=== PATIENT | male | born 1965 | race Caucasian/White ===

== ENCOUNTER → 2016-07-07 | Outpatient (CLI) | payer BC ==
[~2016-07-07] MED LIST: ALLO300T2 PO; AMLO10TA4 PO; COLC0.6T66 PO; COR12 PO; FERR-63 PO; INDO-53 PO; INSNPH SUBCUT; LANTUSUD SQ; LEVO125T PO; METF-517 PO; MULT-1146 PO; NAPR-217 PO; OLME1TAB18 PO; OMEP20TA15 PO; POTA20TA82 PO; PREG150C PO; TAMS-11 PO; TRAM50TA3 PO; XANAFLEX
[2016-07-09 09:46] LABS: FOLICLE STIMULATING HORMONE 13.5 mIU/mL (1.5-12.4); LUTEINIZING HORMONE 8.5 mIU/mL (1.7-8.6); PROLACTIN 6.4 ng/mL (4.0-15.2)
== END | disposition home or self-care (01) ==
LOC: LAB 12:38
PROVIDERS: ATTEND Internal Medicine Endocrinology, Diabetes & Metabolism
DX: E29.1 Testicular hypofunction (principal)
CPT/HCPCS: 83001; 83002; 84146; 84402; 84403

== ENCOUNTER 2017-01-06 08:09 | Inpatient (IN) | payer BC ==
[~2017-01-06] VITALS: Ht 182.9 cm; Wt 129.7 kg
[~2017-01-06 08:09] MED LIST changes: -NAPR-217 PO; +NAPR500T PO
[2017-01-06] MEDS ORDERED: MECLIZINE 25MG TABLET PO ONE (09:15)
[2017-01-06 09:27] LABS: BASOPHILS % 0.4 % (0.0-2.0); EOSINOPHILS % 0.6 % (0.0-5.0); HEMATOCRIT. 34.8 % (42.0-52.0); HEMOGLOBIN. 10.9 g/dL (14.0-18.0); LYMPHOCYTES % 18.6 % (20.0-50.0); MEAN CORPUSCULAR HEMOGLOBIN 23.4 pg (28.0-32.0); MEAN CORPUSCULAR VOLUME 74.7 fL (80.0-94.0); MEAN PLATELET VOLUME 8.6 fl (7.4-10.4); MONOCYTES % 6.1 % (2.0-8.0); NEUTROPHILS % 74.3 % (40.0-76.0); PLATELET 199 x1000/uL (130-400); RED BLOOD CELL COUNT 4.65 mill/uL (4.7-6.1); RED CELL DISTRIBUTION WIDTH 19.2 % (11.6-14.6)
[2017-01-06] MEDS ORDERED: HYDROCODONE/ACETAMINOPHEN 5/325MG TABLET PO ONE (09:30)
[2017-01-06 09:34] LABS: INR 1.1
[2017-01-06 09:42] LABS: CARBON DIOXIDE 26 mEq/L (21-32); CHLORIDE 98 mEq/L (98-107); TROPONIN I < 0.02 ng/mL (0.00-0.04)
[2017-01-06 10:01] LABS: GLUCOSE URINE 3+ (NEGATIVE); KETONES URINE NEGATIVE (NEGATIVE); LEUKOCYTE ESTERASE URINE NEGATIVE (NEGATIVE); NITRITE URINE NEGATIVE (NEGATIVE); OCCULT BLOOD URINE NEGATIVE (NEGATIVE); PROTEIN URINE NEGATIVE (NEGATIVE); SPECIFIC GRAVITY URINE 1.036 (1.005-1.030); UROBILINOGEN URINE 0.2 E.U./dL (0.2-1.0)
[2017-01-06 10:02] LABS: CLARITY URINE CLEAR (CLEAR); COLOR URINE YELLOW (YELLOW)
[2017-01-06] MEDS ORDERED: ASPIRIN 81MG TABLET PO ONE (12:30)
[2017-01-06] MEDS ORDERED: KETOROLAC 15MG/ML VIAL IV ONE (12:30)
[2017-01-06] MEDS ORDERED: MORPHINE SULFATE 2 MG/ML CPJ (NOT FOR IM USE) IV ONE (12:45)
[2017-01-06 14:00] VITALS: BP_SYST 115; BP_DIAS 70; BP_DIAS 74
[2017-01-06] MEDS ORDERED: CLONIDINE 0.2MG TABLET PO PRN ×2 (14:15)
[2017-01-06] MEDS: AMLODIPINE 5MG TABLET PO SCH ×2 (14:30→20:50)
[2017-01-06] MEDS ORDERED: CLONIDINE 0.1MG TABLET PO PRN (14:37)
[2017-01-06] MEDS ORDERED: DEXTROSE 50% WATER 50ML SYRINGE IV PRN (15:15)
[2017-01-06] MEDS ORDERED: TRAMADOL 50MG TABLET PO PRN (15:15)
[2017-01-06 16:00] VITALS: BP 109/71
[2017-01-06] MEDS ORDERED: TIZANIDINE HCL 4MG TABLET PO PRN (16:00)
[2017-01-06] MEDS ORDERED: MECLIZINE 25MG TABLET PO PRN (16:15)
[2017-01-06] MEDS: CARVEDILOL 12.5MG TABLET PO SCH (17:00)
[2017-01-06] MEDS: BLOOD SUGAR DIAGNOSTIC STRIP TEST SCH ×2 (17:07→20:58)
[2017-01-06] MEDS ORDERED: METFORMIN HCL 500MG TABLET PO SCH (17:20)
[2017-01-06] MEDS: PREGABALIN 75MG CAPSULE PO SCH (17:27)
[2017-01-06] MEDS: FERROUS SULFATE 325MG TABLET PO SCH (17:27)
[2017-01-06] MEDS: INSULIN LISPRO 100 UNITS/ML SUBCUT SCH ×2 (17:28→20:58)
[2017-01-06] MEDS: IPRATROPIUM/ALBUTEROL 0.5-3(2.5)MG/3ML NEB HHN PRN (17:32)
[2017-01-06 18:00] VITALS: BP 134/73
[2017-01-06 20:00] VITALS: BP 124/48
[2017-01-06] MEDS ORDERED: TAMSULOSIN HCL 0.4MG SR CAPSULE PO SCH (21:00)
[2017-01-06 22:00] VITALS: BP 108/60
[2017-01-06] MEDS: INSULIN DETEMIR UD 100 UNITS/ML SYR SUBCUT SCH (22:30)
[2017-01-07] VITALS (7 sets, daily range): BP systolic 111–130; BP diastolic 60–79
[2017-01-07] MEDS: BLOOD SUGAR DIAGNOSTIC STRIP TEST SCH ×2 (06:50→12:32)
[2017-01-07] MEDS ORDERED: OMEPRAZOLE 20MG CAPSULE EXTENDED RELEASE PO SCH (06:50)
[2017-01-07] MEDS ORDERED: LEVOTHYROXINE SODIUM 125MCG TABLET PO SCH (06:50)
[2017-01-07] MEDS: INSULIN LISPRO 100 UNITS/ML SUBCUT SCH ×2 (07:20→12:20)
[2017-01-07] MEDS ORDERED: [UNRECOGNIZED DRUG - OTHER] PO SCH (09:00)
[2017-01-07] MEDS ORDERED: OLMESARTAN PO SCH (09:00)
[2017-01-07] MEDS: CARVEDILOL 12.5MG TABLET PO SCH (09:00)
[2017-01-07] MEDS ORDERED: ALLOPURINOL 300 MG TABLET PO SCH (09:00)
[2017-01-07] MEDS ORDERED: POTASSIUM CHLORIDE 20MEQ TABLET SR PO SCH (09:00)
[2017-01-07] MEDS ORDERED: AMLODIPINE 10MG TABLET PO SCH (09:00)
[2017-01-07] MEDS ORDERED: MULTIVITAMINS,THER W-MINERALS TABLET PO SCH (09:00)
[2017-01-07] MEDS ORDERED: HYDROCHLOROTHIAZIDE PO SCH (09:00)
[2017-01-07] MEDS: IPRATROPIUM/ALBUTEROL 0.5-3(2.5)MG/3ML NEB HHN PRN (09:01)
[2017-01-07] MEDS: AMLODIPINE 5MG TABLET PO SCH (09:41)
[2017-01-07] MEDS: FERROUS SULFATE 325MG TABLET PO SCH (09:41)
[2017-01-07] MEDS: PREGABALIN 75MG CAPSULE PO SCH (09:41)
[2017-01-07 09:54] LABS: BASOPHILS % 0.5 % (0.0-2.0); EOSINOPHILS % 1.2 % (0.0-5.0); HEMATOCRIT. 30.7 % (42.0-52.0); HEMOGLOBIN. 9.6 g/dL (14.0-18.0); LYMPHOCYTES % 29.6 % (20.0-50.0); MEAN CORPUSCULAR HEMOGLOBIN 23.2 pg (28.0-32.0); MEAN CORPUSCULAR VOLUME 74.4 fL (80.0-94.0); MONOCYTES % 9.2 % (2.0-8.0); NEUTROPHILS % 59.5 % (40.0-76.0); PLATELET 187 x1000/uL (130-400); RED BLOOD CELL COUNT 4.12 mill/uL (4.7-6.1); RED CELL DISTRIBUTION WIDTH 18.8 % (11.6-14.6)
[2017-01-07 10:33] LABS: CARBON DIOXIDE 28 mEq/L (21-32); CHLORIDE 99 mEq/L (98-107); CREATINE KINASE 89 IU/L (39-308); CREATINE KINASE MB FRACTION 1.4 ng/mL (0.5-3.6); HDL CHOLESTEROL 42 mg/dL (40-59); LDL CHOLESTEROL 65 mg/dL (5-100); TROPONIN I < 0.02 ng/mL (0.00-0.04)
[2017-01-07] MEDS: INSULIN DETEMIR UD 100 UNITS/ML SYR SUBCUT SCH (11:03)
[2017-01-07] MEDS ORDERED: LORATADINE 10MG TABLET PO SCH (12:45)
[2017-01-08] MEDS ORDERED: LEVOTHYROXINE SODIUM 150MCG TABLET PO SCH (06:50)
== END 2017-01-07 17:30 | disposition home or self-care (01) | DRG 73 ==
LOC: ER 08:51 → CANRESERV 10:08 → ENRESERV 10:08 → 3WST 12:41 → EDBEDREQ 12:45
PROVIDERS: ADMIT Family Medicine Adult Medicine; ATTEND Family Medicine Adult Medicine
DX: G90.8 Other disorders of autonomic nervous system (principal); G92 Toxic encephalopathy; E11.42 Type 2 diabetes mellitus with diabetic polyneuropathy; I11.9 Hypertensive heart disease without heart failure; G95.9 Disease of spinal cord, unspecified; D50.9 Iron deficiency anemia, unspecified; E03.9 Hypothyroidism, unspecified; E66.9 Obesity, unspecified; E78.00 Pure hypercholesterolemia, unspecified; E78.5 Hyperlipidemia, unspecified; G25.81 Restless legs syndrome; G89.29 Other chronic pain; I25.10 Atherosclerotic heart disease of native coronary artery without angina pectoris; I25.2 Old myocardial infarction; K21.9 Gastro-esophageal reflux disease without esophagitis; M10.9 Gout, unspecified; N40.0 Benign prostatic hyperplasia without lower urinary tract symptoms; Z79.4 Long term (current) use of insulin; Z82.49 Family history of ischemic heart disease and other diseases of the circulatory system; Z68.38 Body mass index [BMI] 38.0-38.9, adult
CPT/HCPCS: 36415; 70450; 70544; 70553; 80053; 80061; 81001; 82550; 82553; 82962; 83036; 83735; 83880; 84153; 84443; 84484; 85025; 85379; 85610; 85651; 86038; 93005; 93306; 93880; 94640; 94664; 96374; 96375; 97116; 97162; 97166; 99285; J1815; J1885; J2270; J7620; J8597

== ENCOUNTER 2017-05-03 12:34 | Inpatient (IN) | payer BC ==
[~2017-05-03] VITALS: Ht 182.9 cm; Wt 128.1 kg
[~2017-05-03 12:34] MED LIST changes: +NAPR-1176 PO; -NAPR500T PO
[2017-05-03] MEDS ORDERED: ALBUTEROL (0.083%) 2.5MG/3ML NEB HHN STA (13:19)
[2017-05-03] MEDS ORDERED: SODIUM CHLORIDE 0.9% 500 ML IV ONE (13:19)
[2017-05-03] MEDS ORDERED: IPRATROPIUM BROMIDE (0.02%) 0.5MG/2.5ML NEB HHN STA (13:19)
[2017-05-03] MEDS ORDERED: METHYLPREDNISOLONE SOD SUCC 125 MG/2 ML VIAL IV STA (13:19)
[2017-05-03] MEDS ORDERED: MAGNESIUM 2 G PREMIX 50 ML IV ONE (13:30)
[2017-05-03 14:49] LABS: BASOPHILS % 0.5 % (0.0-2.0); EOSINOPHILS % 1.6 % (0.0-5.0); HEMATOCRIT. 28.9 % (42.0-52.0); LYMPHOCYTES % 15.2 % (20.0-50.0); MEAN CORPUSCULAR HEMOGLOBIN 22.2 pg (28.0-32.0); MEAN CORPUSCULAR VOLUME 71.3 fL (80.0-94.0); MEAN PLATELET VOLUME 8.8 fl (7.4-10.4); MONOCYTES % 14.8 % (2.0-8.0); NEUTROPHILS % 67.9 % (40.0-76.0); PLATELET 183 x1000/uL (130-400); RED BLOOD CELL COUNT 4.05 mill/uL (4.7-6.1); RED CELL DISTRIBUTION WIDTH 19.7 % (11.6-14.6)
[2017-05-03 14:54] LABS: CHLORIDE 103 mEq/L (98-107)
[2017-05-03 14:55] LABS: INR 1.1
[2017-05-03 15:01] LABS: TROPONIN I < 0.02 ng/mL (0.00-0.04)
[2017-05-03 17:28] VITALS: BP 132/83
[2017-05-03] MEDS ORDERED: DOCUSATE SODIUM 100MG CAPSULE PO PRN (17:45)
[2017-05-03] MEDS ORDERED: ACETAMINOPHEN 325MG TABLET PO PRN (17:45)
[2017-05-03] MEDS ORDERED: DEXTROSE 50% WATER 50ML SYRINGE IV PRN (17:45)
[2017-05-03] MEDS ORDERED: CLONIDINE 0.1MG TABLET PO PRN (17:45)
[2017-05-03] MEDS ORDERED: ONDANSETRON HCL 4MG/2ML VIAL IV PRN (17:45)
[2017-05-03] MEDS ORDERED: MIR25 PO (17:52)
[2017-05-03] MEDS ORDERED: ENOXAPARIN 40MG/0.4ML SYR SUBCUT SCH (18:00)
[2017-05-03] MEDS ORDERED: INDOMETHACIN 50MG CAPSULE PO PRN (18:15)
[2017-05-03] MEDS ORDERED: TRAMADOL 50MG TABLET PO PRN (18:15)
[2017-05-03] MEDS ORDERED: COLCHICINE 0.6MG TABLET PO PRN (18:15)
[2017-05-03] MEDS ORDERED: NAPROXEN 500MG TABLET PO PRN (18:15)
[2017-05-03] MEDS: ENOXAPARIN 30MG/0.3ML SYR SUBCUT SCH (19:10)
[2017-05-03 20:00] VITALS: BP 144/86
[2017-05-03] MEDS: IPRATROPIUM/ALBUTEROL 0.5-3(2.5)MG/3ML NEB INH SCH (20:24)
[2017-05-03] MEDS ORDERED: ZOLPIDEM TARTRATE 5MG TABLET PO PRN (21:00)
[2017-05-03] MEDS ORDERED: TAMSULOSIN HCL 0.4MG SR CAPSULE PO SCH (21:00)
[2017-05-03] MEDS ORDERED: INSULIN LISPRO 100 UNITS/ML SUBCUT SCH (21:00)
[2017-05-03] MEDS: BLOOD SUGAR DIAGNOSTIC STRIP TEST SCH (21:17)
[2017-05-03] MEDS: PRAMIPEXOLE DI-HCL 0.25MG TABLET PO SCH (21:18)
[2017-05-03] MEDS: TAMSULOSIN HCL 0.4MG SR CAPSULE PO SCH (21:19)
[2017-05-03] MEDS: TIZANIDINE HCL 4MG TABLET PO PRN (21:19)
[2017-05-03] MEDS: CARVEDILOL 12.5MG TABLET PO SCH (21:19)
[2017-05-03] MEDS: PREGABALIN 75MG CAPSULE PO SCH (21:19)
[2017-05-03] MEDS: OSELTAMIVIR 75MG CAPSULE PO SCH (21:19)
[2017-05-03 22:00] VITALS: BP 129/79
[2017-05-03] MEDS ORDERED: INSULIN GLARGINE UD 100 UNITS/ML SYR SUBCUT SCH (22:00)
[2017-05-03] MEDS: IPRATROPIUM/ALBUTEROL 0.5-3(2.5)MG/3ML NEB INH PRN (22:23)
[2017-05-03] MEDS: METHYLPREDNISOLONE SOD SUCC 40 MG/ML VIAL IV SCH (23:18)
[2017-05-04] VITALS (12 sets, daily range): BP systolic 107–141; BP diastolic 56–86
[2017-05-04] MEDS: IPRATROPIUM/ALBUTEROL 0.5-3(2.5)MG/3ML NEB INH SCH ×5 (02:12→21:09)
[2017-05-04] MEDS: ENOXAPARIN 30MG/0.3ML SYR SUBCUT SCH (06:04)
[2017-05-04] MEDS: LEVOTHYROXINE SODIUM 125MCG TABLET PO SCH (06:04)
[2017-05-04] MEDS: OMEPRAZOLE 20MG CAPSULE EXTENDED RELEASE PO SCH (06:05)
[2017-05-04] MEDS: BLOOD SUGAR DIAGNOSTIC STRIP TEST SCH ×4 (06:05→21:17)
[2017-05-04] MEDS ORDERED: OMEPRAZOLE 20MG CAPSULE EXTENDED RELEASE PO SCH (06:50)
[2017-05-04 07:07] LABS: HEMATOCRIT. 29.2 % (42.0-52.0); HEMOGLOBIN. 8.8 g/dL (14.0-18.0); LYMPHOCYTES % 10.1 % (20.0-50.0); MEAN CORPUSCULAR HEMOGLOBIN 21.8 pg (28.0-32.0); MEAN CORPUSCULAR VOLUME 72.3 fL (80.0-94.0); NEUTROPHILS % 86.9 % (40.0-76.0); PLATELET 184 x1000/uL (130-400); RED BLOOD CELL COUNT 4.04 mill/uL (4.7-6.1); RED CELL DISTRIBUTION WIDTH 19.7 % (11.6-14.6)
[2017-05-04 07:46] LABS: CHLORIDE 98 mEq/L (98-107); PHOSPHORUS 2.3 mg/dL (2.5-4.9); TOTAL IRON BINDING CAPACITY 391 ug/dL (250-450); TROPONIN I < 0.02 ng/mL (0.00-0.04)
[2017-05-04] MEDS ORDERED: DEXTROSE 50% WATER 50ML SYRINGE IV PRN (08:00)
[2017-05-04] MEDS ORDERED: ACETAMINOPHEN WITH CODEINE 120-12MG/5ML UDC PO PRN (08:00)
[2017-05-04] MEDS: INSULIN LISPRO 100 UNITS/ML SUBCUT SCH ×4 (08:10→21:19)
[2017-05-04] MEDS: GUAIFENESIN 200MG/10ML SUGAR FREE UDC PO PRN ×2 (08:11→19:00)
[2017-05-04] MEDS: PRAMIPEXOLE DI-HCL 0.25MG TABLET PO SCH ×3 (08:11→21:15)
[2017-05-04] MEDS: FERROUS SULFATE 325MG TABLET PO SCH ×2 (08:11→16:46)
[2017-05-04] MEDS: METHYLPREDNISOLONE SOD SUCC 40 MG/ML VIAL IV SCH ×2 (08:11→21:15)
[2017-05-04] MEDS: MULTIVITAMINS,THER W-MINERALS TABLET PO SCH (08:12)
[2017-05-04] MEDS: PREGABALIN 75MG CAPSULE PO SCH ×2 (08:12→21:15)
[2017-05-04] MEDS: POTASSIUM CHLORIDE 20MEQ TABLET SR PO SCH (08:12)
[2017-05-04] MEDS: ALLOPURINOL 300 MG TABLET PO SCH (08:12)
[2017-05-04] MEDS: COLCHICINE 0.6MG TABLET PO PRN (08:13)
[2017-05-04] MEDS: OSELTAMIVIR 75MG CAPSULE PO SCH ×2 (08:13→21:15)
[2017-05-04] MEDS: AMLODIPINE 10MG TABLET PO SCH (08:13)
[2017-05-04] MEDS: METFORMIN HCL 500MG TABLET PO SCH ×2 (08:14→16:46)
[2017-05-04] MEDS: CARVEDILOL 12.5MG TABLET PO SCH (08:14)
[2017-05-04] MEDS: IRON SUCROSE COMPLEX 100 MG/5 ML ML IV SCH (09:50)
[2017-05-04] MEDS: METOPROLOL TARTRATE 25MG TABLET PO SCH ×2 (09:50→21:17)
[2017-05-04] MEDS: IPRATROPIUM/ALBUTEROL 0.5-3(2.5)MG/3ML NEB INH PRN (10:05)
[2017-05-04] MEDS: INSULIN GLARGINE UD 100 UNITS/ML SYR SUBCUT SCH ×2 (11:02→21:20)
[2017-05-04 14:00] LABS: FOLIC ACID (FOLATE) SERUM 19.4 ng/mL (>5.38)
[2017-05-04] MEDS: TIZANIDINE HCL 4MG TABLET PO PRN (21:15)
[2017-05-04] MEDS: TAMSULOSIN HCL 0.4MG SR CAPSULE PO SCH (21:17)
[2017-05-05] VITALS (9 sets, daily range): BP systolic 120–146; BP diastolic 64–85
[2017-05-05] MEDS: IPRATROPIUM/ALBUTEROL 0.5-3(2.5)MG/3ML NEB INH SCH ×2 (01:27→10:32)
[2017-05-05] MEDS: LEVOTHYROXINE SODIUM 125MCG TABLET PO SCH (06:48)
[2017-05-05] MEDS: OMEPRAZOLE 20MG CAPSULE EXTENDED RELEASE PO SCH (06:48)
[2017-05-05] MEDS: BLOOD SUGAR DIAGNOSTIC STRIP TEST SCH ×2 (06:48→11:07)
[2017-05-05 07:13] LABS: HEMATOCRIT. 28.5 % (42.0-52.0); HEMOGLOBIN. 8.6 g/dL (14.0-18.0); MEAN CORPUSCULAR HEMOGLOBIN 21.6 pg (28.0-32.0); MEAN CORPUSCULAR VOLUME 71.6 fL (80.0-94.0); PLATELET 187 x1000/uL (130-400); RED BLOOD CELL COUNT 3.97 mill/uL (4.7-6.1); RED CELL DISTRIBUTION WIDTH 19.6 % (11.6-14.6)
[2017-05-05 07:17] LABS: CHLORIDE 101 mEq/L (98-107); HDL CHOLESTEROL 51 mg/dL (40-59); LDL CHOLESTEROL 83 mg/dL (5-100)
[2017-05-05 07:18] LABS: TROPONIN I < 0.02 ng/mL (0.00-0.04)
[2017-05-05] MEDS: METFORMIN HCL 500MG TABLET PO SCH (07:56)
[2017-05-05] MEDS: INSULIN LISPRO 100 UNITS/ML SUBCUT SCH ×2 (07:57→11:09)
[2017-05-05] MEDS: COLCHICINE 0.6MG TABLET PO PRN (08:06)
[2017-05-05] MEDS: GUAIFENESIN 200MG/10ML SUGAR FREE UDC PO PRN (08:06)
[2017-05-05] MEDS: METHYLPREDNISOLONE SOD SUCC 40 MG/ML VIAL IV SCH (08:07)
[2017-05-05] MEDS: PRAMIPEXOLE DI-HCL 0.25MG TABLET PO SCH (08:08)
[2017-05-05] MEDS: IRON SUCROSE COMPLEX 100 MG/5 ML ML IV SCH (08:08)
[2017-05-05] MEDS: POTASSIUM CHLORIDE 20MEQ TABLET SR PO SCH (08:08)
[2017-05-05] MEDS: PREGABALIN 75MG CAPSULE PO SCH (08:08)
[2017-05-05] MEDS: MULTIVITAMINS,THER W-MINERALS TABLET PO SCH (08:08)
[2017-05-05] MEDS: METOPROLOL TARTRATE 25MG TABLET PO SCH (08:09)
[2017-05-05] MEDS: FERROUS SULFATE 325MG TABLET PO SCH (08:09)
[2017-05-05] MEDS: ALLOPURINOL 300 MG TABLET PO SCH (08:10)
[2017-05-05] MEDS: OSELTAMIVIR 75MG CAPSULE PO SCH (08:10)
[2017-05-05] MEDS: AMLODIPINE 10MG TABLET PO SCH (08:10)
[2017-05-05] MEDS: INSULIN GLARGINE UD 100 UNITS/ML SYR SUBCUT SCH (11:08)
[2017-05-05 12:12] LABS: NUCLEATED RED BLOOD CELLS 1 /100 WBC
[2017-05-05 12:13] LABS: PLATELET ESTIMATE NORMAL
[2017-05-06] MEDS ORDERED: FAMOTIDINE 20MG TABLET PO SCH (09:00)
== END 2017-05-05 14:43 | disposition home or self-care (01) | DRG 194 ==
LOC: ER 12:34 → EDBEDREQSVC 14:27 → ENRESERV 14:33 → 3WST 14:33 → EDBEDREQ 15:49
PROVIDERS: ADMIT Family Medicine Adult Medicine; ATTEND Family Medicine Adult Medicine
DX: J10.1 Influenza due to other identified influenza virus with other respiratory manifestations (principal); J45.901 Unspecified asthma with (acute) exacerbation; K31.84 Gastroparesis; E44.1 Mild protein-calorie malnutrition; E11.43 Type 2 diabetes mellitus with diabetic autonomic (poly)neuropathy; G95.9 Disease of spinal cord, unspecified; I11.9 Hypertensive heart disease without heart failure; E66.01 Morbid (severe) obesity due to excess calories; I25.10 Atherosclerotic heart disease of native coronary artery without angina pectoris; I49.3 Ventricular premature depolarization; K21.9 Gastro-esophageal reflux disease without esophagitis; G47.33 Obstructive sleep apnea (adult) (pediatric); R74.0 Nonspecific elevation of levels of transaminase and lactic acid dehydrogenase [LDH]; M10.9 Gout, unspecified; D50.9 Iron deficiency anemia, unspecified; E03.9 Hypothyroidism, unspecified; E78.00 Pure hypercholesterolemia, unspecified; E78.5 Hyperlipidemia, unspecified; N40.0 Benign prostatic hyperplasia without lower urinary tract symptoms; Z82.49 Family history of ischemic heart disease and other diseases of the circulatory system; Z88.6 Allergy status to analgesic agent; I25.2 Old myocardial infarction
CPT/HCPCS: 36415; 71045; 80048; 80053; 80061; 82270; 82607; 82746; 82962; 83036; 83540; 83550; 83605; 83690; 83735; 83880; 84100; 84443; 84484; 85025; 85044; 85610; 86850; 86900; 87040; 87804; 93005; 93306; 96361; 96374; 96375; 99285; J1650; J1815; J2920; J2930; J3475; J7040; J7611; J7620

== ENCOUNTER → 2017-07-01 | Outpatient (CLI) | payer BC ==
[~2017-07-01] MED LIST changes: -COR12 PO; +GADOBENATE DIMEGLUMINE 529 MG/ML 10ML IV ONE; +MIR25 PO; -OLME1TAB18 PO
[2017-07-01 10:16] LABS: BASOPHILS % 0.5 % (0.0-2.0); EOSINOPHILS % 1.1 % (0.0-5.0); HEMATOCRIT. 41.6 % (42.0-52.0); HEMOGLOBIN. 13.5 g/dL (14.0-18.0); LYMPHOCYTES % 20.9 % (20.0-50.0); MEAN CORPUSCULAR HEMOGLOBIN 26.9 pg (28.0-32.0); MEAN CORPUSCULAR VOLUME 82.7 fL (80.0-94.0); MEAN PLATELET VOLUME 8.8 fl (7.4-10.4); MONOCYTES % 8.4 % (2.0-8.0); NEUTROPHILS % 69.1 % (40.0-76.0); PLATELET 157 x1000/uL (130-400); RED BLOOD CELL COUNT 5.03 mill/uL (4.7-6.1)
[2017-07-01 10:43] LABS: CLARITY URINE CLEAR (CLEAR); COLOR URINE YELLOW (YELLOW); KETONES URINE NEGATIVE (NEGATIVE); LEUKOCYTE ESTERASE URINE NEGATIVE (NEGATIVE); NITRITE URINE NEGATIVE (NEGATIVE); OCCULT BLOOD URINE NEGATIVE (NEGATIVE); PROTEIN URINE 1+ (NEGATIVE); SPECIFIC GRAVITY URINE 1.034 (1.005-1.030); UROBILINOGEN URINE 0.2 E.U./dL (0.2-1.0)
[2017-07-01 11:16] LABS: CHLORIDE 101 mEq/L (98-107)
[2017-07-01 11:32] LABS: LDL CHOLESTEROL 79 mg/dL (5-100)
[2017-07-01 11:33] LABS: HDL CHOLESTEROL 47 mg/dL (40-59)
[2017-07-01 12:41] LABS: PROSTRATE SPECIFIC AG TOTAL 2.43 ng/mL (0.0-4.0)
[2017-07-02 13:43] LABS: PLATELET ESTIMATE NORMAL
== END | disposition home or self-care (01) ==
LOC: MRI 08:50
PROVIDERS: ATTEND Psychiatry & Neurology Neurology
DX: R51 Headache (principal); E78.00 Pure hypercholesterolemia, unspecified; I10 Essential (primary) hypertension; R79.89 Other specified abnormal findings of blood chemistry
CPT/HCPCS: 36415; 70544; 70553; 80053; 80061; 81003; 82306; 82728; 83036; 84153; 84443; 85025; A9577

== ENCOUNTER 2017-09-01 16:35 | Emergency (ER) | payer BC ==
[~2017-09-01] VITALS: Ht 182.9 cm; Wt 132.0 kg
[~2017-09-01 16:35] MED LIST changes: -GADOBENATE DIMEGLUMINE 529 MG/ML 10ML IV ONE
[2017-09-01 16:46] VITALS: BP 150/94
[2017-09-01] MEDS ORDERED: ACETAMINOPHEN WITH CODEINE 300/30MG TABLET PO ONE (17:00)
== END 2017-09-01 18:00 | disposition home or self-care (01) ==
LOC: ER 16:35
DX: S40.021A Contusion of right upper arm, initial encounter (principal); K21.9 Gastro-esophageal reflux disease without esophagitis; I10 Essential (primary) hypertension; E11.9 Type 2 diabetes mellitus without complications; Z88.8 Allergy status to other drugs, medicaments and biological substances; X58.XXXA Exposure to other specified factors, initial encounter; Y93.89 Activity, other specified; Y92.128 Other place in nursing home as the place of occurrence of the external cause; Y99.8 Other external cause status
CPT/HCPCS: 73030; 73060; 99284

== ENCOUNTER → 2017-09-15 | Outpatient (CLI) | payer BC ==
[~2017-09-15] MED LIST changes: +REGADENOSON 0.4 MG/5 ML IV ONE
== END | disposition home or self-care (01) ==
LOC: NM 07:54
PROVIDERS: ATTEND Specialist
DX: R07.89 Other chest pain (principal)
CPT/HCPCS: 78452; 93017; A9500; J2785

== ENCOUNTER → 2017-10-19 | Outpatient (CLI) | payer BC ==
[~2017-10-19] MED LIST changes: -REGADENOSON 0.4 MG/5 ML IV ONE
[2017-10-19 14:49] LABS: BASOPHILS % 0.4 % (0.0-2.0); EOSINOPHILS % 1.7 % (0.0-5.0); HEMATOCRIT. 39.3 % (42.0-52.0); HEMOGLOBIN. 13.1 g/dL (14.0-18.0); LYMPHOCYTES % 20.1 % (20.0-50.0); MEAN CORPUSCULAR HEMOGLOBIN 30.8 pg (28.0-32.0); MEAN CORPUSCULAR VOLUME 92.6 fL (80.0-94.0); MEAN PLATELET VOLUME 9.5 fl (7.4-10.4); MONOCYTES % 8.9 % (2.0-8.0); NEUTROPHILS % 68.9 % (40.0-76.0); PLATELET 113 x1000/uL (130-400); RED BLOOD CELL COUNT 4.25 mill/uL (4.7-6.1); RED CELL DISTRIBUTION WIDTH 15.2 % (11.6-14.6)
[2017-10-19 15:45] LABS: CHLORIDE 101 mEq/L (98-107)
[2017-10-19 15:51] LABS: LDL CHOLESTEROL 80 mg/dL (5-100); TOTAL IRON BINDING CAPACITY 391 ug/dL (250-450)
[2017-10-19 15:52] LABS: HDL CHOLESTEROL 48 mg/dL (40-59)
[2017-10-19 15:54] LABS: T4 FREE 1.11 ng/dL (0.76-1.46)
[2017-10-19 16:01] LABS: CORTISOL 6.4 ucg/dL
[2017-10-19 16:02] LABS: FERRITIN 21 ng/mL (22-322); PROSTRATE SPECIFIC AG TOTAL 1.77 ng/mL (0.0-4.0)
[2017-10-19 16:05] LABS: FOLIC ACID (FOLATE) SERUM >20 ng/mL ng/mL (>5.38)
[2017-10-19 16:13] LABS: HEPATITIS B SURFACE ANTIGEN NEGATIVE
[2017-10-19 16:17] LABS: VITAMIN B12 SERUM 357 pg/mL (211-911)
[2017-10-19 16:41] LABS: HEPATITIS B CORE AB IGM NEGATIVE
[2017-10-19 16:42] LABS: HEPATITIS A AB IGM NEGATIVE (NEGATIVE)
[2017-10-21 09:06] LABS: FOLICLE STIMULATING HORMONE 15.7 mIU/mL (1.5-12.4); LUTEINIZING HORMONE 7.9 mIU/mL (1.7-8.6); VITAMIN D 25-OH 31.9 ng/mL (30.0-100.0)
[2017-10-21 13:09] LABS: *CREATININE RANDOM URINE 105.5 mg/dL (Not Estab.); MICROALBUMIN RANDOM URINE 116.9 ug/mL (Not Estab.)
[2017-10-22 17:08] LABS: TESTOSTERONE FREE 5.2 pg/mL (7.2-24.0)
== END | disposition home or self-care (01) ==
LOC: LAB 13:46
PROVIDERS: ATTEND Internal Medicine Endocrinology, Diabetes & Metabolism
DX: E11.9 Type 2 diabetes mellitus without complications (principal); I10 Essential (primary) hypertension; N40.0 Benign prostatic hyperplasia without lower urinary tract symptoms; E05.90 Thyrotoxicosis, unspecified without thyrotoxic crisis or storm; R94.5 Abnormal results of liver function studies; N52.9 Male erectile dysfunction, unspecified
CPT/HCPCS: 36415; 80053; 80061; 82043; 82306; 82533; 82570; 82607; 82728; 82746; 83001; 83002; 83036; 83540; 83550; 84153; 84402; 84403; 84439; 84443; 84681; 85025; 86340; 86705; 86709; 86803; 87340

== ENCOUNTER → 2017-10-28 | Outpatient (CLI) | payer OTHER ==
[~2017-10-28] MED LIST changes: -INDO-53 PO; +INDO50CA14 PO
== END | disposition home or self-care (01) ==
LOC: MRI 07:59
PROVIDERS: ATTEND Orthopaedic Surgery
DX: S43.422A Sprain of left rotator cuff capsule, initial encounter (principal); E03.9 Hypothyroidism, unspecified; E78.5 Hyperlipidemia, unspecified; I10 Essential (primary) hypertension; E11.9 Type 2 diabetes mellitus without complications; M10.9 Gout, unspecified; Z85.46 Personal history of malignant neoplasm of prostate; Z79.899 Other long term (current) drug therapy; X58.XXXA Exposure to other specified factors, initial encounter; Y93.89 Activity, other specified; Y92.89 Other specified places as the place of occurrence of the external cause; Y99.8 Other external cause status
CPT/HCPCS: 73221

== ENCOUNTER → 2017-11-18 | Outpatient (CLI) | payer BC ==
[2017-11-18 10:29] LABS: GAMMA GLUTAMYL TRANSPEPTIDASE 171 IU/L (11-50)
[2017-11-19 09:06] LABS: HBSAG SCREEN Negative (Negative)
[2017-11-19 19:11] LABS: ANTI-NUCLEAR ANTIBODIES DIRECT Negative (Negative)
[2017-11-21 08:09] LABS: ACTIN (SMOOTH MUSCLE) ANTIBODY 45 Units (0-19); MITOCHONDRIAL M2 AB 20.2 Units (0.0-20.0)
== END | disposition home or self-care (01) ==
LOC: LAB 09:11
PROVIDERS: ATTEND Internal Medicine Gastroenterology
DX: K64.9 Unspecified hemorrhoids (principal); R94.5 Abnormal results of liver function studies; I10 Essential (primary) hypertension; E78.5 Hyperlipidemia, unspecified; E03.9 Hypothyroidism, unspecified; E11.9 Type 2 diabetes mellitus without complications; Z85.46 Personal history of malignant neoplasm of prostate
CPT/HCPCS: 36415; 80076; 82390; 82525; 82977; 83516; 83615; 86038; 86709; 87340

== ENCOUNTER → 2017-11-18 | Outpatient (CLI) | payer BC | END | disposition home or self-care (01) | LOC: CARD 09:06 | PROVIDERS: ATTEND Specialist | DX: R07.89 Other chest pain (principal); I10 Essential (primary) hypertension; E11.9 Type 2 diabetes mellitus without complications; E03.9 Hypothyroidism, unspecified; E78.5 Hyperlipidemia, unspecified; K21.9 Gastro-esophageal reflux disease without esophagitis; Z85.46 Personal history of malignant neoplasm of prostate; Z79.899 Other long term (current) drug therapy | CPT/HCPCS: 93306 ==

== ENCOUNTER → 2017-12-08 | Outpatient (CLI) | payer BC | END | disposition home or self-care (01) | LOC: CT 09:02 | PROVIDERS: ATTEND Internal Medicine | DX: J98.11 Atelectasis (principal) | CPT/HCPCS: 71250 ==

== ENCOUNTER → 2017-12-13 | Outpatient (CLI) | payer BC ==
[2017-12-13 12:39] LABS: CHLORIDE 101 mEq/L (98-107)
== END | disposition home or self-care (01) ==
LOC: LAB 11:30
PROVIDERS: ATTEND Family Medicine Adult Medicine
DX: I11.9 Hypertensive heart disease without heart failure (principal); E78.5 Hyperlipidemia, unspecified; E03.9 Hypothyroidism, unspecified; E11.9 Type 2 diabetes mellitus without complications; K21.9 Gastro-esophageal reflux disease without esophagitis; Z79.899 Other long term (current) drug therapy; Z88.8 Allergy status to other drugs, medicaments and biological substances
CPT/HCPCS: 36415; 80053

== ENCOUNTER → 2017-12-21 | Outpatient (CLI) | payer BC ==
[2017-12-21 09:56] LABS: BASOPHILS % 0.5 % (0.0-2.0); EOSINOPHILS % 0.7 % (0.0-5.0); HEMATOCRIT. 42.4 % (42.0-52.0); HEMOGLOBIN. 14.1 g/dL (14.0-18.0); LYMPHOCYTES % 18.6 % (20.0-50.0); MEAN CORPUSCULAR HEMOGLOBIN 31.7 pg (28.0-32.0); MEAN CORPUSCULAR VOLUME 95.2 fL (80.0-94.0); MEAN PLATELET VOLUME 8.9 fl (7.4-10.4); MONOCYTES % 7.1 % (2.0-8.0); NEUTROPHILS % 73.1 % (40.0-76.0); PLATELET 115 x1000/uL (130-400); RED BLOOD CELL COUNT 4.45 mill/uL (4.7-6.1); RED CELL DISTRIBUTION WIDTH 16.4 % (11.6-14.6)
[2017-12-21 10:24] LABS: TOTAL IRON BINDING CAPACITY 335 ug/dL (250-450)
[2017-12-21 11:02] LABS: FERRITIN 84 ng/mL (22-322)
[2017-12-21 11:03] LABS: HEPATITIS B SURFACE AB 149.8 mIU/mL
[2017-12-21 11:15] LABS: VITAMIN B12 SERUM 340 pg/mL (211-911)
[2017-12-21 11:24] LABS: FOLIC ACID (FOLATE) SERUM > 20.00 ng/mL (>5.38)
[2017-12-22 08:19] LABS: CA 19-9 31 U/mL (0-35); HBSAG SCREEN Negative (Negative); HEPATITIS A ANTIBODY TOTAL Negative (Negative)
== END | disposition home or self-care (01) ==
LOC: LAB 09:05
PROVIDERS: ATTEND Internal Medicine Gastroenterology
DX: Z12.11 Encounter for screening for malignant neoplasm of colon (principal); K29.70 Gastritis, unspecified, without bleeding; R94.5 Abnormal results of liver function studies
CPT/HCPCS: 36415; 82105; 82607; 82728; 82746; 83540; 83550; 85025; 85044; 86301; 86706; 86708; 86803; 87340

== ENCOUNTER → 2017-12-23 | Outpatient (CLI) | payer BC | END | disposition home or self-care (01) | LOC: LAB 11:30 | PROVIDERS: ATTEND Internal Medicine Gastroenterology | DX: K76.0 Fatty (change of) liver, not elsewhere classified (principal); I10 Essential (primary) hypertension; E03.9 Hypothyroidism, unspecified | CPT/HCPCS: 36415; 82565; 84520 ==

== ENCOUNTER → 2017-12-28 | Outpatient (CLI) | payer BC ==
[~2017-12-28] MED LIST changes: +BARIUM SULFATE 450ML ORAL SUSP ONE; +IOHEXOL-300 100 ML BOTTLE ONE
== END | disposition home or self-care (01) ==
LOC: CT 07:52
PROVIDERS: ATTEND Internal Medicine Gastroenterology
DX: K46.9 Unspecified abdominal hernia without obstruction or gangrene (principal); J98.11 Atelectasis
CPT/HCPCS: 74177; Q9967

== ENCOUNTER → 2018-01-12 | Outpatient (CLI) | payer BC ==
[~2018-01-12] MED LIST changes: -BARIUM SULFATE 450ML ORAL SUSP ONE; -IOHEXOL-300 100 ML BOTTLE ONE
[2018-01-14 09:06] LABS: FOLICLE STIMULATING HORMONE 16.9 mIU/mL (1.5-12.4); PROLACTIN 4.1 ng/mL (4.0-15.2); VITAMIN D 25-OH 25.9 ng/mL (30.0-100.0)
[2018-01-16 09:06] LABS: TESTOSTERONE FREE 7.2 pg/mL (7.2-24.0)
[2018-01-16 13:10] LABS: HUMAN GROWTH HORMONE 0.1 ng/mL (0.0-10.0)
== END | disposition home or self-care (01) ==
LOC: LAB 14:38
PROVIDERS: ATTEND Internal Medicine Endocrinology, Diabetes & Metabolism
DX: E11.9 Type 2 diabetes mellitus without complications (principal); E55.9 Vitamin D deficiency, unspecified; E23.0 Hypopituitarism
CPT/HCPCS: 36415; 82306; 82533; 83001; 83002; 83003; 83036; 84146; 84402; 84403

== ENCOUNTER → 2018-03-29 | Outpatient (CLI) | payer BC | END | disposition home or self-care (01) | LOC: US 13:40 | PROVIDERS: ATTEND Specialist | DX: M79.604 Pain in right leg (principal); M79.605 Pain in left leg | CPT/HCPCS: 93970 ==

== ENCOUNTER → 2018-03-29 | Outpatient (CLI) | payer BC ==
[2018-03-29 12:28] LABS: BASOPHILS % 0.4 % (0.0-2.0); HEMATOCRIT. 42.3 % (42.0-52.0); HEMOGLOBIN. 14.1 g/dL (14.0-18.0); LYMPHOCYTES % 17.7 % (20.0-50.0); MEAN CORPUSCULAR HEMOGLOBIN 32.8 pg (28.0-32.0); MEAN CORPUSCULAR VOLUME 98.4 fL (80.0-94.0); MEAN PLATELET VOLUME 8.8 fl (7.4-10.4); MONOCYTES % 7.6 % (2.0-8.0); NEUTROPHILS % 73.3 % (40.0-76.0); PLATELET 110 x1000/uL (130-400); RED CELL DISTRIBUTION WIDTH 13.8 % (11.6-14.6)
[2018-03-29 12:33] LABS: CLARITY URINE CLEAR (CLEAR); COLOR URINE YELLOW (YELLOW); KETONES URINE NEGATIVE (NEGATIVE); LEUKOCYTE ESTERASE URINE NEGATIVE (NEGATIVE); NITRITE URINE NEGATIVE (NEGATIVE); OCCULT BLOOD URINE NEGATIVE (NEGATIVE); PROTEIN URINE TRACE (NEGATIVE); SPECIFIC GRAVITY URINE 1.044 (1.005-1.030)
[2018-03-29 12:42] LABS: CHLORIDE 105 mEq/L (98-107)
[2018-03-29 12:50] LABS: HDL CHOLESTEROL 57 mg/dL (40-59); LDL CHOLESTEROL 109 mg/dL (5-100)
[2018-03-29 12:55] LABS: T4 FREE 1.19 ng/dL (0.76-1.46)
[2018-03-29 13:32] LABS: VITAMIN B12 SERUM 362 pg/mL (211-911)
[2018-03-30 08:22] LABS: *CREATININE RANDOM URINE 57.2 mg/dL (Not Estab.); MICROALBUMIN RANDOM URINE 120.2 ug/mL (Not Estab.)
[2018-03-30 09:06] LABS: VITAMIN D 25-OH 24.3 ng/mL (30.0-100.0)
== END | disposition home or self-care (01) ==
LOC: LAB 11:52
PROVIDERS: ATTEND Internal Medicine Endocrinology, Diabetes & Metabolism
DX: E11.9 Type 2 diabetes mellitus without complications (principal); I10 Essential (primary) hypertension; E03.9 Hypothyroidism, unspecified; E55.9 Vitamin D deficiency, unspecified
CPT/HCPCS: 36415; 80061; 82043; 82306; 82570; 82607; 83036; 83921; 84439; 84443

== ENCOUNTER → 2018-04-07 | Outpatient (CLI) | payer BC ==
[~2018-04-07] MED LIST changes: +IOHEXOL-300 100 ML BOTTLE ONE; +IOHEXOL-300 50 ML BOTTLE IV ONE; +LIDOCAINE HCL 1% 20ML VIAL (Pyxis) INJ ONE; +SODIUM BICARBONATE 4% (2.4MEQ) 5ML VIAL IV ONE
[2018-04-07 13:45] LABS: CHLORIDE 100 mEq/L (98-107)
== END | disposition home or self-care (01) ==
LOC: MRI 12:37
PROVIDERS: ATTEND Psychiatry & Neurology Neurology
DX: M47.814 Spondylosis without myelopathy or radiculopathy, thoracic region (principal); M47.812 Spondylosis without myelopathy or radiculopathy, cervical region; R07.81 Pleurodynia; M48.03 Spinal stenosis, cervicothoracic region; M25.78 Osteophyte, vertebrae
CPT/HCPCS: 36415; 71111; 72050; 72070; 72100; 72141

== ENCOUNTER → 2018-04-12 | Outpatient (CLI) | payer BC ==
[~2018-04-12] MED LIST changes: +GADOBENATE DIMEGLUMINE 529 MG/ML 10ML IV ONE; -IOHEXOL-300 100 ML BOTTLE ONE; -IOHEXOL-300 50 ML BOTTLE IV ONE; -LIDOCAINE HCL 1% 20ML VIAL (Pyxis) INJ ONE; -SODIUM BICARBONATE 4% (2.4MEQ) 5ML VIAL IV ONE; +SODIUM CHLORIDE 0.9% 10ML VIAL ONE
== END | disposition home or self-care (01) ==
LOC: RAD 09:13
PROVIDERS: ATTEND Psychiatry & Neurology Neurology
DX: M25.512 Pain in left shoulder (principal); M25.511 Pain in right shoulder
CPT/HCPCS: 23350; 73040; 73223; A4216; A9577; J3490; Q9967

== ENCOUNTER → 2018-07-27 | Outpatient (CLI) | payer BC ==
[~2018-07-27] MED LIST changes: -GADOBENATE DIMEGLUMINE 529 MG/ML 10ML IV ONE; -SODIUM CHLORIDE 0.9% 10ML VIAL ONE
[2018-07-27 11:59] LABS: BASOPHILS % 0.5 % (0.0-2.0); EOSINOPHILS % 0.8 % (0.0-5.0); HEMATOCRIT. 37.9 % (42.0-52.0); HEMOGLOBIN. 12.3 g/dL (14.0-18.0); LYMPHOCYTES % 20.6 % (20.0-50.0); MEAN CORPUSCULAR HEMOGLOBIN 29.2 pg (28.0-32.0); MEAN CORPUSCULAR VOLUME 90.3 fL (80.0-94.0); MEAN PLATELET VOLUME 8.3 fl (7.4-10.4); MONOCYTES % 5.4 % (2.0-8.0); NEUTROPHILS % 72.7 % (40.0-76.0); PLATELET 131 x1000/uL (130-400); RED BLOOD CELL COUNT 4.19 mill/uL (4.7-6.1); RED CELL DISTRIBUTION WIDTH 14.9 % (11.6-14.6)
[2018-07-27 12:09] LABS: INR 1.1; PROTHROMBIN TIME 11.1 sec (9.6-11.0)
[2018-07-27 12:14] LABS: CHLORIDE 105 mEq/L (98-107)
[2018-07-27 12:20] LABS: GAMMA GLUTAMYL TRANSPEPTIDASE 188 IU/L (11-50)
[2018-07-27 12:22] LABS: T4 FREE 1.23 ng/dL (0.76-1.46)
[2018-07-27 12:28] LABS: HDL CHOLESTEROL 51 mg/dL (40-59)
[2018-07-27 12:30] LABS: LDL CHOLESTEROL 101 mg/dL (5-100)
[2018-07-27 12:50] LABS: HEPATITIS B SURFACE AB 120.6 mIU/mL
[2018-07-28 09:08] LABS: TRANSFERRIN 308 mg/dL (200-370)
[2018-07-28 10:11] LABS: HBSAG SCREEN Negative (Negative); HEPATITIS A ANTIBODY TOTAL Negative (Negative)
[2018-07-28 17:09] LABS: ANTI-NUCLEAR ANTIBODIES DIRECT Negative (Negative)
[2018-07-30 14:13] LABS: MITOCHONDRIAL M2 AB <20.0 Units (0.0-20.0)
== END | disposition home or self-care (01) ==
LOC: LAB 11:06
PROVIDERS: ATTEND Internal Medicine Gastroenterology
DX: K76.0 Fatty (change of) liver, not elsewhere classified (principal)
CPT/HCPCS: 36415; 80061; 82105; 82390; 82525; 82728; 82977; 83036; 83516; 83615; 84439; 84443; 84466; 86038; 86706; 86708; 87340

== ENCOUNTER → 2018-08-04 | Outpatient (CLI) | payer BC | END | disposition home or self-care (01) | LOC: US 07:50 | PROVIDERS: ATTEND Internal Medicine Gastroenterology | DX: R16.1 Splenomegaly, not elsewhere classified (principal); R16.0 Hepatomegaly, not elsewhere classified; K75.81 Nonalcoholic steatohepatitis (NASH) | CPT/HCPCS: 76700 ==

== ENCOUNTER → 2018-09-11 | Outpatient (CLI) | payer BC ==
[2018-09-11 11:32] LABS: CHLORIDE 105 mEq/L (98-107)
[2018-09-11 11:36] LABS: GAMMA GLUTAMYL TRANSPEPTIDASE 136 IU/L (11-50)
[2018-09-11 11:42] LABS: BASOPHILS % 0.4 % (0.0-2.0); EOSINOPHILS % 1.1 % (0.0-5.0); HEMATOCRIT. 36.9 % (42.0-52.0); MEAN CORPUSCULAR HEMOGLOBIN 28.5 pg (28.0-32.0); MEAN CORPUSCULAR VOLUME 87.6 fL (80.0-94.0); MEAN PLATELET VOLUME 8.9 fl (7.4-10.4); MONOCYTES % 8.3 % (2.0-8.0); NEUTROPHILS % 68.2 % (40.0-76.0); PLATELET 131 x1000/uL (130-400); RED BLOOD CELL COUNT 4.22 mill/uL (4.7-6.1); RED CELL DISTRIBUTION WIDTH 15.9 % (11.6-14.6)
[2018-09-11 11:44] LABS: TOTAL IRON BINDING CAPACITY 388 ug/dL (250-450)
[2018-09-11 12:13] LABS: FOLIC ACID (FOLATE) SERUM 18.9 ng/mL (>5.38)
== END | disposition home or self-care (01) ==
LOC: LAB 10:56
PROVIDERS: ATTEND Internal Medicine Gastroenterology
DX: K74.60 Unspecified cirrhosis of liver (principal); K21.9 Gastro-esophageal reflux disease without esophagitis; I10 Essential (primary) hypertension
CPT/HCPCS: 36415; 82607; 82728; 82746; 82977; 83540; 83550; 85044

== ENCOUNTER → 2018-09-14 | Outpatient (CLI) | payer BC ==
[~2018-09-14] MED LIST changes: +IOHEXOL-300 100 ML BOTTLE ONE
== END | disposition home or self-care (01) ==
LOC: CT 09:05
PROVIDERS: ATTEND Internal Medicine Gastroenterology
DX: K42.9 Umbilical hernia without obstruction or gangrene (principal); K21.9 Gastro-esophageal reflux disease without esophagitis
CPT/HCPCS: 74160; Q9967

== ENCOUNTER → 2018-10-03 | Outpatient (CLI) | payer BC ==
[~2018-10-03] MED LIST changes: -IOHEXOL-300 100 ML BOTTLE ONE
[2018-10-07 04:07] LABS: TESTOSTERONE FREE 8.3 pg/mL (7.2-24.0)
== END | disposition home or self-care (01) ==
LOC: LAB 13:17
PROVIDERS: ATTEND Family Medicine Adult Medicine
DX: E29.1 Testicular hypofunction (principal)
CPT/HCPCS: 36415; 84153; 84402; 84403; G0103

== ENCOUNTER → 2018-10-03 | Outpatient (CLI) | payer BC | END | disposition home or self-care (01) | LOC: LAB 13:28 | PROVIDERS: ATTEND Internal Medicine Gastroenterology | DX: K74.60 Unspecified cirrhosis of liver (principal); K75.9 Inflammatory liver disease, unspecified; D53.9 Nutritional anemia, unspecified | CPT/HCPCS: 36415; 82565; 84520 ==

== ENCOUNTER → 2018-12-27 | Outpatient (CLI) | payer BC ==
[~2018-12-27] MED LIST changes: +GADOBENATE DIMEGLUMINE 529 MG/ML 10ML IV ONE; -INDO50CA14 PO; +INDO50CA99 PO
== END | disposition home or self-care (01) ==
LOC: MRI 08:38
PROVIDERS: ATTEND Internal Medicine Gastroenterology
DX: K74.60 Unspecified cirrhosis of liver (principal); K75.9 Inflammatory liver disease, unspecified; R16.0 Hepatomegaly, not elsewhere classified; R16.1 Splenomegaly, not elsewhere classified
CPT/HCPCS: 74183; A9577

== ENCOUNTER → 2019-02-06 | Outpatient (CLI) | payer BC ==
[~2019-02-06] MED LIST changes: -GADOBENATE DIMEGLUMINE 529 MG/ML 10ML IV ONE
== END | disposition home or self-care (01) ==
LOC: RAD 12:03
PROVIDERS: ATTEND Family Medicine Adult Medicine
DX: J98.11 Atelectasis (principal)
CPT/HCPCS: 71046

== ENCOUNTER → 2019-02-12 | Outpatient (CLI) | payer BC ==
[2019-02-12 10:12] LABS: BASOPHILS % 0.5 % (0.0-2.0); HEMATOCRIT. 36.1 % (42.0-52.0); HEMOGLOBIN. 11.7 g/dL (14.0-18.0); LYMPHOCYTES % 18.7 % (20.0-50.0); MEAN CORPUSCULAR HEMOGLOBIN 27.9 pg (28.0-32.0); MEAN CORPUSCULAR VOLUME 86.1 fL (80.0-94.0); MEAN PLATELET VOLUME 8.1 fl (7.4-10.4); MONOCYTES % 6.8 % (2.0-8.0); PLATELET 119 x1000/uL (130-400); RED BLOOD CELL COUNT 4.19 mill/uL (4.7-6.1); RED CELL DISTRIBUTION WIDTH 25.6 % (11.6-14.6)
[2019-02-12 10:22] LABS: CHLORIDE 107 mEq/L (98-107)
[2019-02-12 10:29] LABS: LDL CHOLESTEROL 87 mg/dL (5-100)
[2019-02-12 10:30] LABS: HDL CHOLESTEROL 67 mg/dL (40-59)
[2019-02-12 10:32] LABS: T4 FREE 1.31 ng/dL (0.76-1.46)
[2019-02-12 10:33] LABS: TOTAL IRON BINDING CAPACITY 393 ug/dL (250-450)
[2019-02-12 10:47] LABS: FOLIC ACID (FOLATE) SERUM >20 ng/mL ng/mL (>5.38)
[2019-02-12 10:55] LABS: VITAMIN B12 SERUM 422 pg/mL (211-911)
[2019-02-12 13:43] LABS: FERRITIN 46 ng/mL (22-322)
[2019-02-12 13:49] LABS: PLATELET ESTIMATE DECREASED
== END | disposition home or self-care (01) ==
LOC: LAB 09:25
PROVIDERS: ATTEND Family Medicine Adult Medicine
DX: Z00.00 Encounter for general adult medical examination without abnormal findings (principal); D64.9 Anemia, unspecified; E11.9 Type 2 diabetes mellitus without complications
CPT/HCPCS: 36415; 80061; 82306; 82607; 82728; 82746; 83036; 83540; 83550; 84439; 84443; 84481

== ENCOUNTER → 2019-04-24 | Outpatient (CLI) | payer BC | END | disposition home or self-care (01) | LOC: US 09:12 | PROVIDERS: ATTEND Internal Medicine Gastroenterology | DX: R16.1 Splenomegaly, not elsewhere classified (principal); K74.60 Unspecified cirrhosis of liver | CPT/HCPCS: 76700 ==

== ENCOUNTER → 2019-08-22 | Outpatient (CLI) | payer BC ==
[~2019-08-22] MED LIST changes: +REGADENOSON 0.4 MG/5 ML IV ONE
[2019-08-22 10:09] LABS: BASOPHILS % 0.3 % (0.0-2.0); EOSINOPHILS % 0.8 % (0.0-5.0); HEMATOCRIT. 40.5 % (42.0-52.0); HEMOGLOBIN. 13.7 g/dL (14.0-18.0); LYMPHOCYTES % 14.7 % (20.0-50.0); MEAN CORPUSCULAR VOLUME 94.8 fL (80.0-94.0); MONOCYTES % 6.2 % (2.0-8.0); PLATELET 98 x1000/uL (130-400); RED BLOOD CELL COUNT 4.27 mill/uL (4.7-6.1)
[2019-08-22 10:13] LABS: CHLORIDE 104 mEq/L (98-107)
[2019-08-22 10:18] LABS: GAMMA GLUTAMYL TRANSPEPTIDASE 164 IU/L (11-50)
[2019-08-22 10:21] LABS: PHOSPHORUS 3.7 mg/dL (2.5-4.9)
== END | disposition home or self-care (01) ==
LOC: LAB 09:36
PROVIDERS: ATTEND Internal Medicine Gastroenterology
DX: I51.7 Cardiomegaly (principal); K74.60 Unspecified cirrhosis of liver; D50.9 Iron deficiency anemia, unspecified; I10 Essential (primary) hypertension; R10.9 Unspecified abdominal pain
CPT/HCPCS: 36415; 78452; 80053; 82105; 82977; 83735; 84100; 85025; 93017; A9500; J2785

== ENCOUNTER → 2019-08-31 | Outpatient (CLI) | payer OTHER ==
[~2019-08-31] MED LIST changes: +GADOBENATE DIMEGLUMINE 529 MG/ML 10ML IV ONE; +IOHEXOL-300 50 ML BOTTLE IV ONE; +LIDOCAINE HCL 1% 20ML VIAL (Pyxis) INJ ONE; -REGADENOSON 0.4 MG/5 ML IV ONE; +SODIUM BICARBONATE 4% (2.4MEQ) 5ML VIAL IV ONE; +SODIUM CHLORIDE 0.9% 10ML VIAL ONE
== END | disposition home or self-care (01) ==
LOC: RAD 09:57
PROVIDERS: ATTEND Orthopaedic Surgery
DX: M25.512 Pain in left shoulder (principal); M75.102 Unspecified rotator cuff tear or rupture of left shoulder, not specified as traumatic; Z79.899 Other long term (current) drug therapy; Z88.8 Allergy status to other drugs, medicaments and biological substances; Z98.890 Other specified postprocedural states; Z79.4 Long term (current) use of insulin; Z72.89 Other problems related to lifestyle
CPT/HCPCS: 20610; 73223; 77002; A4216; A9577; J3490; Q9967; 20611

== ENCOUNTER → 2019-09-05 | Outpatient (CLI) | payer BC ==
[~2019-09-05] MED LIST changes: -GADOBENATE DIMEGLUMINE 529 MG/ML 10ML IV ONE; -IOHEXOL-300 50 ML BOTTLE IV ONE; -LIDOCAINE HCL 1% 20ML VIAL (Pyxis) INJ ONE; -SODIUM BICARBONATE 4% (2.4MEQ) 5ML VIAL IV ONE; -SODIUM CHLORIDE 0.9% 10ML VIAL ONE
[2019-09-05 10:09] LABS: BASOPHILS % 0.4 % (0.0-2.0); EOSINOPHILS % 0.8 % (0.0-5.0); HEMATOCRIT. 39.6 % (42.0-52.0); HEMOGLOBIN. 13.5 g/dL (14.0-18.0); LYMPHOCYTES % 14.9 % (20.0-50.0); MEAN CORPUSCULAR VOLUME 96.7 fL (80.0-94.0); MONOCYTES % 6.8 % (2.0-8.0); NEUTROPHILS % 77.1 % (40.0-76.0); PLATELET 103 x1000/uL (130-400); RED BLOOD CELL COUNT 4.09 mill/uL (4.7-6.1); RED CELL DISTRIBUTION WIDTH 14.9 % (11.6-14.6)
[2019-09-05 10:13] LABS: CHLORIDE 103 mEq/L (98-107)
[2019-09-05 10:25] LABS: LDL CHOLESTEROL 65 mg/dL (5-100)
[2019-09-05 10:27] LABS: HDL CHOLESTEROL 68 mg/dL (40-59); T4 FREE 1.07 ng/dL (0.76-1.46)
== END | disposition home or self-care (01) ==
LOC: LAB 09:13
PROVIDERS: ATTEND Specialist
DX: E78.2 Mixed hyperlipidemia (principal); E55.9 Vitamin D deficiency, unspecified; D64.9 Anemia, unspecified
CPT/HCPCS: 36415; 80053; 80061; 83036; 84439; 84443; 84481; 85025

== ENCOUNTER → 2019-09-13 | Outpatient (CLI) | payer BC ==
[2019-09-13 13:02] LABS: BASOPHILS % 0.3 % (0.0-2.0); EOSINOPHILS % 0.5 % (0.0-5.0); HEMATOCRIT. 39.7 % (42.0-52.0); HEMOGLOBIN. 13.5 g/dL (14.0-18.0); LYMPHOCYTES % 13.7 % (20.0-50.0); MEAN CORPUSCULAR HEMOGLOBIN 32.9 pg (28.0-32.0); MEAN CORPUSCULAR VOLUME 96.5 fL (80.0-94.0); MEAN PLATELET VOLUME 8.6 fl (7.4-10.4); MONOCYTES % 6.1 % (2.0-8.0); NEUTROPHILS % 79.4 % (40.0-76.0); PLATELET 83 x1000/uL (130-400); RED BLOOD CELL COUNT 4.12 mill/uL (4.7-6.1); RED CELL DISTRIBUTION WIDTH 15.2 % (11.6-14.6)
[2019-09-13 13:19] LABS: T4 FREE 1.13 ng/dL (0.76-1.46)
[2019-09-15 09:09] LABS: THYROID PEROXIDASE ANTIBODY 135 IU/mL (0-34); VITAMIN D 25-OH 45.3 ng/mL (30.0-100.0)
[2019-09-15 15:09] LABS: ANTI-NUCLEAR ANTIBODIES DIRECT Negative (Negative)
== END | disposition home or self-care (01) ==
LOC: LAB 12:20
PROVIDERS: ATTEND Internal Medicine Gastroenterology
DX: E11.9 Type 2 diabetes mellitus without complications (principal); K76.0 Fatty (change of) liver, not elsewhere classified
CPT/HCPCS: 36415; 82306; 82728; 83036; 84439; 84443; 84480; 85025; 86038; 86376; 86592

== ENCOUNTER → 2019-11-23 | Outpatient (CLI) | payer BC ==
[2019-11-23 12:22] LABS: BASOPHILS % 0.2 % (0.0-2.0); EOSINOPHILS % 0.9 % (0.0-5.0); HEMATOCRIT. 39.9 % (42.0-52.0); HEMOGLOBIN. 13.4 g/dL (14.0-18.0); LYMPHOCYTES % 16.2 % (20.0-50.0); MEAN CORPUSCULAR HEMOGLOBIN 32.7 pg (28.0-32.0); MEAN CORPUSCULAR VOLUME 97.3 fL (80.0-94.0); MEAN PLATELET VOLUME 8.7 fl (7.4-10.4); MONOCYTES % 6.9 % (2.0-8.0); NEUTROPHILS % 75.8 % (40.0-76.0); PLATELET 107 x1000/uL (130-400); RED CELL DISTRIBUTION WIDTH 13.9 % (11.6-14.6)
[2019-11-24 17:11] LABS: ANTI-NUCLEAR ANTIBODIES DIRECT Negative (Negative)
[2019-11-26 13:10] LABS: ACTIN (SMOOTH MUSCLE) ANTIBODY 34 Units (0-19)
== END | disposition home or self-care (01) ==
LOC: LAB 11:50
PROVIDERS: ATTEND Internal Medicine Gastroenterology
DX: I10 Essential (primary) hypertension (principal); R94.5 Abnormal results of liver function studies; K74.60 Unspecified cirrhosis of liver
CPT/HCPCS: 36415; 83036; 84550; 85025; 86038

== ENCOUNTER → 2019-11-29 | Outpatient (CLI) | payer BC ==
[2019-11-29 15:21] LABS: CHLORIDE 103 mEq/L (98-107)
[2019-11-29 15:23] LABS: BASOPHILS % 0.6 % (0.0-2.0); EOSINOPHILS % 1.2 % (0.0-5.0); HEMATOCRIT. 38.2 % (42.0-52.0); HEMOGLOBIN. 12.8 g/dL (14.0-18.0); LYMPHOCYTES % 15.4 % (20.0-50.0); MEAN CORPUSCULAR HEMOGLOBIN 32.4 pg (28.0-32.0); MEAN CORPUSCULAR VOLUME 96.8 fL (80.0-94.0); MEAN PLATELET VOLUME 9.2 fl (7.4-10.4); MONOCYTES % 6.9 % (2.0-8.0); NEUTROPHILS % 75.9 % (40.0-76.0); PLATELET 88 x1000/uL (130-400); RED BLOOD CELL COUNT 3.94 mill/uL (4.7-6.1); RED CELL DISTRIBUTION WIDTH 13.7 % (11.6-14.6)
[2019-11-29 15:24] LABS: AMYLASE 62 IU/L (25-115)
== END | disposition home or self-care (01) ==
LOC: RAD 14:47
PROVIDERS: ATTEND Internal Medicine Gastroenterology
DX: R10.9 Unspecified abdominal pain (principal)
CPT/HCPCS: 36415; 74018; 80053; 82150; 83615; 85025; 85651

== ENCOUNTER → 2020-02-08 | Outpatient (CLI) | payer BC ==
[2020-02-08 12:41] LABS: BASOPHILS % 0.9 % (0.0-2.0); EOSINOPHILS % 0.7 % (0.0-5.0); HEMATOCRIT. 35.7 % (42.0-52.0); HEMOGLOBIN. 11.8 g/dL (14.0-18.0); LYMPHOCYTES % 16.9 % (20.0-50.0); MEAN CORPUSCULAR VOLUME 90.7 fL (80.0-94.0); MEAN PLATELET VOLUME 8.8 fl (7.4-10.4); MONOCYTES % 8.5 % (2.0-8.0); PLATELET 96 x1000/uL (130-400); RED BLOOD CELL COUNT 3.94 mill/uL (4.7-6.1); RED CELL DISTRIBUTION WIDTH 14.3 % (11.6-14.6)
[2020-02-08 12:50] LABS: CHLORIDE 107 mEq/L (98-107)
[2020-02-08 12:57] LABS: LDL CHOLESTEROL 104 mg/dL (5-100)
[2020-02-08 12:59] LABS: HDL CHOLESTEROL 67 mg/dL (40-59); T4 FREE 0.89 ng/dL (0.76-1.46)
== END | disposition home or self-care (01) ==
LOC: LAB 11:53
PROVIDERS: ATTEND Specialist
DX: I11.9 Hypertensive heart disease without heart failure (principal); I25.10 Atherosclerotic heart disease of native coronary artery without angina pectoris; E78.2 Mixed hyperlipidemia; E70.9 Disorder of aromatic amino-acid metabolism, unspecified
CPT/HCPCS: 36415; 80053; 80061; 83036; 84439; 84443; 84481; 85025

== ENCOUNTER → 2020-05-14 | Outpatient (CLI) | payer BC ==
[~2020-05-14] MED LIST changes: +ALBU90AE INH; +COLC0.6C3 PO; +DAPA10TA PO; +DOCU250C69 PO; +INSHUMSS SUBCUT; +LANTUSUD SUBCUT; +LOPHC2 PO; -METF-517 PO; +METF-817 PO; +MOME13HF INH; +PREG100C PO; +ROPI3TAB5 PO; +SPIR25TA6 PO; +TIAG4TAB PO
== END | disposition home or self-care (01) ==
LOC: LAB 10:15
PROVIDERS: ATTEND Internal Medicine Gastroenterology
DX: Z20.822 Contact with and (suspected) exposure to COVID-19 (principal)
CPT/HCPCS: 87426

== ENCOUNTER → 2020-05-15 | Outpatient (CLI) | payer BC ==
[~2020-05-15] MED LIST changes: -ALBU90AE INH; -COLC0.6C3 PO; -DAPA10TA PO; -DOCU250C69 PO; -INSHUMSS SUBCUT; -LANTUSUD SUBCUT; -LOPHC2 PO; -MOME13HF INH; -PREG100C PO; -ROPI3TAB5 PO; -SPIR25TA6 PO; -TIAG4TAB PO
== END | disposition home or self-care (01) ==
LOC: US 08:35
PROVIDERS: ATTEND Internal Medicine Gastroenterology
DX: K74.60 Unspecified cirrhosis of liver (principal)
CPT/HCPCS: 76700

== ENCOUNTER 2020-05-31 08:33 | Inpatient (IN) | payer BC ==
[~2020-05-31] VITALS: Ht 365.8 cm; Wt 130.8 kg
[2020-05-31 09:02] LABS: BASOPHILS % 0.2 % (0.0-2.0); EOSINOPHILS % 0.4 % (0.0-5.0); HEMOGLOBIN. 9.7 g/dL (14.0-18.0); LYMPHOCYTES % 14.9 % (20.0-50.0); MEAN CORPUSCULAR HEMOGLOBIN 25.5 pg (28.0-32.0); MEAN CORPUSCULAR VOLUME 81.2 fL (80.0-94.0); MEAN PLATELET VOLUME 8.7 fl (7.4-10.4); MONOCYTES % 7.5 % (2.0-8.0); PLATELET 114 x1000/uL (130-400); RED BLOOD CELL COUNT 3.82 mill/uL (4.7-6.1); RED CELL DISTRIBUTION WIDTH 18.7 % (11.6-14.6)
[2020-05-31 09:08] LABS: CHLORIDE 107 mEq/L (98-107)
[2020-05-31 09:10] LABS: INR 1.1; PROTHROMBIN TIME 11.5 sec (9.6-11.0)
[2020-05-31] MEDS ORDERED: AMLODIPINE 5MG TABLET PO NR (11:00)
[2020-05-31 12:00] VITALS: BP 145/82
[2020-05-31] MEDS ORDERED: ACETAMINOPHEN 325MG TABLET PO PRN (13:45)
[2020-05-31] MEDS ORDERED: ENOXAPARIN 40MG/0.4ML SYR SUBCUT SCH (13:45)
[2020-05-31] MEDS ORDERED: MAGNESIUM/ALUMINUM HYDROXIDE/SIMETHICONE 30ML UDC PO PRN (13:45)
[2020-05-31] MEDS ORDERED: DOCUSATE SODIUM 100MG CAPSULE PO PRN (13:45)
[2020-05-31] MEDS ORDERED: CLONIDINE 0.1MG TABLET PO PRN (13:45)
[2020-05-31] MEDS ORDERED: HYDROCODONE/ACETAMINOPHEN 5/325MG TABLET PO PRN (13:45)
[2020-05-31] MEDS ORDERED: ONDANSETRON HCL 4MG/2ML INJ IV PRN (13:45)
[2020-05-31] MEDS ORDERED: DEXTROSE 50% WATER 50ML SYRINGE IV PRN ×2 (13:45)
[2020-05-31 14:00] VITALS: BP 139/83
[2020-05-31] MEDS ORDERED: MOME13HF INH (15:15)
[2020-05-31] MEDS ORDERED: ALBU90AE INH (15:15)
[2020-05-31] MEDS ORDERED: INSHUMSS SUBCUT (15:15)
[2020-05-31] MEDS ORDERED: SPIR25TA6 PO (15:15)
[2020-05-31] MEDS ORDERED: DOCU250C69 PO (15:15)
[2020-05-31] MEDS ORDERED: COLC0.6C3 PO (15:15)
[2020-05-31] MEDS ORDERED: LOPHC2 PO (15:21)
[2020-05-31] MEDS ORDERED: TIAG4TAB PO (15:29)
[2020-05-31] MEDS ORDERED: DAPA10TA PO (15:29)
[2020-05-31] MEDS ORDERED: ROPI3TAB5 PO (15:29)
[2020-05-31] MEDS ORDERED: PREG100C PO (15:42)
[2020-05-31] MEDS ORDERED: PREG150C PO (15:42)
[2020-05-31] MEDS ORDERED: LANTUSUD SUBCUT (15:42)
[2020-05-31 16:00] VITALS: BP 141/89
[2020-05-31] MEDS: IPRATROPIUM/ALBUTEROL 0.5-3(2.5)MG/3ML NEB HHN PRN (17:04)
[2020-05-31] MEDS: BLOOD SUGAR DIAGNOSTIC STRIP TEST SCH ×2 (17:23→21:13)
[2020-05-31] MEDS: DOCUSATE SODIUM 250MG CAPSULE PO SCH (17:39)
[2020-05-31] MEDS: INSULIN LISPRO 100 UNITS/ML SUBCUT SCH ×2 (17:40→21:41)
[2020-05-31 18:00] VITALS: BP 138/99
[2020-05-31] MEDS: ROPINIROLE HCL 1MG TABLET PO SCH (19:21)
[2020-05-31 20:00] VITALS: BP 137/83
[2020-05-31 21:00] VITALS: BP 141/89
[2020-05-31] MEDS ORDERED: PREGABALIN 75MG CAPSULE PO SCH (21:00)
[2020-05-31] MEDS ORDERED: ATORVASTATIN CALCIUM 10MG TABLET PO SCH (21:00)
[2020-05-31] MEDS: AMLODIPINE 5MG TABLET PO SCH (21:33)
[2020-05-31] MEDS: PREGABALIN 50 MG CAPSULE PO SCH (21:35)
[2020-05-31] MEDS: ENOXAPARIN 30MG/0.3ML SYR SUBCUT SCH (21:36)
[2020-05-31] MEDS: INSULIN GLARGINE UD 100 UNITS/ML SYR SUBCUT SCH (21:42)
[2020-05-31] MEDS ORDERED: TAMSULOSIN HCL 0.4MG SR CAPSULE PO SCH (21:45)
[2020-05-31 22:32] LABS: CLARITY URINE CLEAR (CLEAR); COLOR URINE YELLOW (YELLOW); KETONES URINE NEGATIVE (NEGATIVE); LEUKOCYTE ESTERASE URINE NEGATIVE (NEGATIVE); NITRITE URINE NEGATIVE (NEGATIVE); OCCULT BLOOD URINE NEGATIVE (NEGATIVE); PROTEIN URINE 1+ (NEGATIVE); SPECIFIC GRAVITY URINE 1.031 (1.005-1.030)
[2020-05-31 22:46] LABS: *AMPHETAMINES SCREEN URINE NEGATIVE (NEGATIVE); *BARBITURATES SCREEN URINE NEGATIVE (NEGATIVE); *BENZODIAZEPINES SCREEN URINE NEGATIVE (NEGATIVE); *COCAINE SCREEN URINE NEGATIVE (NEGATIVE); METHADONE URINE SCREEN NEGATIVE (NEGATIVE)
[2020-05-31 22:47] LABS: CANNABINOID URINE SCREEN NEGATIVE (NEGATIVE); OPIATES URINE SCREEN NEGATIVE (NEGATIVE); PHENCYCLIDINE URINE SCREEN NEGATIVE (NEGATIVE)
[2020-06-01] VITALS (9 sets, daily range): BP systolic 111–140; BP diastolic 54–94
[2020-06-01] MEDS: IPRATROPIUM/ALBUTEROL 0.5-3(2.5)MG/3ML NEB HHN PRN ×2 (00:38→07:37)
[2020-06-01] MEDS: BLOOD SUGAR DIAGNOSTIC STRIP TEST SCH (06:25)
[2020-06-01] MEDS ORDERED: OMEPRAZOLE 20MG CAPSULE EXTENDED RELEASE PO SCH (06:50)
[2020-06-01] MEDS: INSULIN LISPRO 100 UNITS/ML SUBCUT SCH (07:53)
[2020-06-01] MEDS ORDERED: MAGNESIUM 2 G PREMIX 50 ML IV SCH (08:00)
[2020-06-01] MEDS: DOCUSATE SODIUM 250MG CAPSULE PO SCH (08:05)
[2020-06-01] MEDS: ROPINIROLE HCL 1MG TABLET PO SCH (08:06)
[2020-06-01] MEDS: AMLODIPINE 5MG TABLET PO SCH (08:06)
[2020-06-01 08:28] LABS: BASOPHILS % 0.3 % (0.0-2.0); EOSINOPHILS % 0.9 % (0.0-5.0); HEMOGLOBIN. 8.9 g/dL (14.0-18.0); MEAN CORPUSCULAR HEMOGLOBIN 25.7 pg (28.0-32.0); MEAN CORPUSCULAR VOLUME 80.7 fL (80.0-94.0); MEAN PLATELET VOLUME 9.1 fl (7.4-10.4); MONOCYTES % 7.6 % (2.0-8.0); NEUTROPHILS % 74.2 % (40.0-76.0); PLATELET 106 x1000/uL (130-400); RED BLOOD CELL COUNT 3.47 mill/uL (4.7-6.1); RED CELL DISTRIBUTION WIDTH 18.6 % (11.6-14.6)
[2020-06-01] MEDS: ENOXAPARIN 30MG/0.3ML SYR SUBCUT SCH (08:36)
[2020-06-01 08:59] LABS: CHLORIDE 106 mEq/L (98-107)
[2020-06-01] MEDS ORDERED: TAMSULOSIN HCL 0.4MG SR CAPSULE PO SCH (09:00)
[2020-06-01] MEDS ORDERED: MAGNESIUM OXIDE 400MG TABLET PO SCH (09:00)
[2020-06-01 09:08] LABS: LDL CHOLESTEROL 67 mg/dL (5-100)
[2020-06-01 09:10] LABS: PHOSPHORUS 3.2 mg/dL (2.5-4.9)
[2020-06-01 09:11] LABS: HDL CHOLESTEROL 53 mg/dL (40-59)
[2020-06-01] MEDS: PREGABALIN 50 MG CAPSULE PO SCH (09:56)
[2020-06-01] MEDS: INSULIN GLARGINE UD 100 UNITS/ML SYR SUBCUT SCH (09:57)
== END 2020-06-01 14:15 | disposition home or self-care (01) | DRG 74 ==
LOC: ER 08:38 → ENRESERV 10:12 → 3WST 10:20 → EDBEDREQSVC 10:28 → 3WST 11:59
PROVIDERS: ADMIT Internal Medicine; ATTEND Internal Medicine
DX: G90.8 Other disorders of autonomic nervous system (principal); I24.9 Acute ischemic heart disease, unspecified; I49.3 Ventricular premature depolarization; D64.9 Anemia, unspecified; D69.6 Thrombocytopenia, unspecified; J45.909 Unspecified asthma, uncomplicated; N40.0 Benign prostatic hyperplasia without lower urinary tract symptoms; M10.9 Gout, unspecified; Z79.4 Long term (current) use of insulin; E11.9 Type 2 diabetes mellitus without complications; E78.5 Hyperlipidemia, unspecified; E66.09 Other obesity due to excess calories; K21.9 Gastro-esophageal reflux disease without esophagitis; E03.9 Hypothyroidism, unspecified; E83.42 Hypomagnesemia; I10 Essential (primary) hypertension; I49.1 Atrial premature depolarization; Z68.38 Body mass index [BMI] 38.0-38.9, adult; Z88.8 Allergy status to other drugs, medicaments and biological substances; Z79.899 Other long term (current) drug therapy; I25.2 Old myocardial infarction; Z98.1 Arthrodesis status
CPT/HCPCS: 36415; 71045; 80048; 80053; 80061; 80305; 81003; 82962; 83036; 83735; 83880; 84100; 84443; 84484; 85025; 93005; 93306; 93970; 94640; 99291; J1650; J1815; J3475

== ENCOUNTER → 2020-06-02 | Outpatient (CLI) | payer BC ==
[~2020-06-02] MED LIST changes: +ALBU90AE INH; +COLC0.6C3 PO; -COLC0.6T66 PO; +DAPA10TA PO; +DOCU250C69 PO; -FERR-63 PO; +INSHUMSS SUBCUT; -INSNPH SUBCUT; -LANTUSUD SQ; +LANTUSUD SUBCUT; -METF-817 PO; -MIR25 PO; +MOME13HF INH; -MULT-1146 PO; -NAPR-1176 PO; -POTA20TA82 PO; +PREG100C PO; +ROPI3TAB5 PO; +SPIR25TA6 PO; -TAMS-11 PO; +TIAG4TAB PO; -TRAM50TA3 PO
[2020-06-02 12:59] LABS: BASOPHILS % 0.5 % (0.0-2.0); EOSINOPHILS % 0.7 % (0.0-5.0); HEMATOCRIT. 31.4 % (42.0-52.0); HEMOGLOBIN. 9.9 g/dL (14.0-18.0); LYMPHOCYTES % 15.4 % (20.0-50.0); MEAN CORPUSCULAR HEMOGLOBIN 25.2 pg (28.0-32.0); MEAN CORPUSCULAR VOLUME 80.2 fL (80.0-94.0); MEAN PLATELET VOLUME 8.6 fl (7.4-10.4); NEUTROPHILS % 74.4 % (40.0-76.0); PLATELET 114 x1000/uL (130-400); RED BLOOD CELL COUNT 3.92 mill/uL (4.7-6.1); RED CELL DISTRIBUTION WIDTH 18.8 % (11.6-14.6)
[2020-06-02 13:10] LABS: CLARITY URINE CLEAR (CLEAR); COLOR URINE YELLOW (YELLOW); KETONES URINE NEGATIVE (NEGATIVE); LEUKOCYTE ESTERASE URINE NEGATIVE (NEGATIVE); NITRITE URINE NEGATIVE (NEGATIVE); OCCULT BLOOD URINE NEGATIVE (NEGATIVE); PH URINE 6.5 (4.5-8.0); PROTEIN URINE 1+ (NEGATIVE); UROBILINOGEN URINE 0.2 E.U./dL (0.2-1.0)
[2020-06-02 13:31] LABS: CHLORIDE 109 mEq/L (98-107)
[2020-06-02 13:36] LABS: GAMMA GLUTAMYL TRANSPEPTIDASE 93 IU/L (11-50)
[2020-06-02 13:39] LABS: LDL CHOLESTEROL 79 mg/dL (5-100); TOTAL IRON BINDING CAPACITY 437 ug/dL (250-450)
[2020-06-02 13:40] LABS: T4 FREE 0.98 ng/dL (0.76-1.46)
[2020-06-02 13:43] LABS: HDL CHOLESTEROL 64 mg/dL (40-59)
[2020-06-02 14:02] LABS: FERRITIN 9 ng/mL (22-322)
[2020-06-02 14:34] LABS: FOLIC ACID (FOLATE) SERUM >20 ng/mL ng/mL (>5.38)
[2020-06-02 14:45] LABS: VITAMIN B12 SERUM 259 pg/mL (211-911)
[2020-06-03 08:10] LABS: *CREATININE RANDOM URINE 43.7 mg/dL (Not Estab.); MICROALBUMIN RANDOM URINE 175.9 ug/mL (Not Estab.)
== END | disposition home or self-care (01) ==
LOC: LAB 12:10
PROVIDERS: ATTEND Internal Medicine Gastroenterology
DX: R94.5 Abnormal results of liver function studies (principal); K64.9 Unspecified hemorrhoids; K76.0 Fatty (change of) liver, not elsewhere classified; K74.60 Unspecified cirrhosis of liver; E11.9 Type 2 diabetes mellitus without complications; G62.9 Polyneuropathy, unspecified; E78.5 Hyperlipidemia, unspecified; E66.09 Other obesity due to excess calories
CPT/HCPCS: 36415; 80053; 80061; 81003; 82043; 82105; 82570; 82607; 82728; 82746; 82977; 83036; 83540; 83550; 83921; 84436; 84439; 84443; 84550; 85025; 85044

== ENCOUNTER → 2020-06-06 | Outpatient (CLI) | payer BC | END | disposition home or self-care (01) | LOC: MRI 12:11 | PROVIDERS: ATTEND Psychiatry & Neurology Neurology | DX: M47.816 Spondylosis without myelopathy or radiculopathy, lumbar region (principal); M48.061 Spinal stenosis, lumbar region without neurogenic claudication | CPT/HCPCS: 72141; 72148 ==

== ENCOUNTER → 2020-06-11 | Outpatient (CLI) | payer BC | END | disposition home or self-care (01) | LOC: LAB 12:49 | PROVIDERS: ATTEND Specialist | DX: R55 Syncope and collapse (principal) | CPT/HCPCS: 93225; 93226 ==

== ENCOUNTER → 2020-07-09 | Outpatient (CLI) | payer BC | END | disposition home or self-care (01) | LOC: MRI 09:37 | PROVIDERS: ATTEND Neurological Surgery | DX: M51.34 Other intervertebral disc degeneration, thoracic region (principal); M48.04 Spinal stenosis, thoracic region | CPT/HCPCS: 72146 ==

== ENCOUNTER → 2020-07-23 | Outpatient (CLI) | payer BC ==
[2020-07-23 13:13] LABS: BASOPHILS % 0.5 % (0.0-2.0); EOSINOPHILS % 0.8 % (0.0-5.0); HEMATOCRIT. 31.4 % (42.0-52.0); MEAN CORPUSCULAR HEMOGLOBIN 26.2 pg (28.0-32.0); MEAN CORPUSCULAR VOLUME 82.1 fL (80.0-94.0); MEAN PLATELET VOLUME 8.7 fl (7.4-10.4); MONOCYTES % 6.8 % (2.0-8.0); NEUTROPHILS % 79.9 % (40.0-76.0); PLATELET 98 x1000/uL (130-400); RED BLOOD CELL COUNT 3.82 mill/uL (4.7-6.1); RED CELL DISTRIBUTION WIDTH 22.7 % (11.6-14.6)
[2020-07-23 13:34] LABS: CHLORIDE 106 mEq/L (98-107)
[2020-07-23 13:36] LABS: CLARITY URINE CLEAR (CLEAR); COLOR URINE YELLOW (YELLOW); KETONES URINE NEGATIVE (NEGATIVE); LEUKOCYTE ESTERASE URINE NEGATIVE (NEGATIVE); NITRITE URINE NEGATIVE (NEGATIVE); OCCULT BLOOD URINE NEGATIVE (NEGATIVE); PH URINE 5.5 (4.5-8.0); PROTEIN URINE TRACE (NEGATIVE); SPECIFIC GRAVITY URINE 1.038 (1.005-1.030); UROBILINOGEN URINE 0.2 E.U./dL (0.2-1.0)
[2020-07-23 13:38] LABS: LDL CHOLESTEROL 60 mg/dL (5-100)
[2020-07-23 13:39] LABS: HDL CHOLESTEROL 76 mg/dL (40-59)
[2020-07-23 13:40] LABS: T4 FREE 1.06 ng/dL (0.76-1.46)
[2020-07-23 14:26] LABS: PLATELET ESTIMATE DECREASED
[2020-07-24 09:07] LABS: VITAMIN D 25-OH 26.2 ng/mL (30.0-100.0)
[2020-07-25 12:21] LABS: ANTI-PARIETAL CELL AB 2.4 Units (0.0-20.0)
== END | disposition home or self-care (01) ==
LOC: LAB 12:36
PROVIDERS: ATTEND Internal Medicine Endocrinology, Diabetes & Metabolism
DX: M13.852 Other specified arthritis, left hip (principal); M47.817 Spondylosis without myelopathy or radiculopathy, lumbosacral region; M48.061 Spinal stenosis, lumbar region without neurogenic claudication; E11.9 Type 2 diabetes mellitus without complications; D64.9 Anemia, unspecified; E66.9 Obesity, unspecified; R35.8 Other polyuria
CPT/HCPCS: 36415; 72100; 73502; 80053; 80061; 81003; 82306; 83036; 84439; 84443; 85025; 86340

== ENCOUNTER → 2020-07-30 | Outpatient (CLI) | payer BC | END | disposition home or self-care (01) | LOC: MRI 09:22 | PROVIDERS: ATTEND Neurological Surgery | DX: R51.9 Headache, unspecified (principal) | CPT/HCPCS: 70551 ==

== ENCOUNTER → 2020-08-27 | Outpatient (CLI) | payer BC | END | disposition home or self-care (01) | LOC: MRI 09:44 | PROVIDERS: ATTEND Neurological Surgery | DX: S76.012A Strain of muscle, fascia and tendon of left hip, initial encounter (principal); M16.12 Unilateral primary osteoarthritis, left hip; M25.552 Pain in left hip; N40.0 Benign prostatic hyperplasia without lower urinary tract symptoms; M25.452 Effusion, left hip; M87.9 Osteonecrosis, unspecified; X58.XXXA Exposure to other specified factors, initial encounter; Y93.89 Activity, other specified; Y92.89 Other specified places as the place of occurrence of the external cause; Y99.8 Other external cause status | CPT/HCPCS: 73721 ==

== ENCOUNTER → 2020-10-31 | Outpatient (CLI) | payer BC ==
[2020-10-31 12:00] LABS: CLARITY URINE CLEAR (CLEAR); COLOR URINE YELLOW (YELLOW); KETONES URINE NEGATIVE (NEGATIVE); LEUKOCYTE ESTERASE URINE NEGATIVE (NEGATIVE); NITRITE URINE NEGATIVE (NEGATIVE); OCCULT BLOOD URINE NEGATIVE (NEGATIVE); PROTEIN URINE TRACE (NEGATIVE); SPECIFIC GRAVITY URINE 1.032 (1.005-1.030); UROBILINOGEN URINE 0.2 E.U./dL (0.2-1.0)
[2020-10-31 12:11] LABS: BASOPHILS % 0.5 % (0.0-2.0); EOSINOPHILS % 0.9 % (0.0-5.0); HEMATOCRIT. 33.4 % (42.0-52.0); HEMOGLOBIN. 10.9 g/dL (14.0-18.0); LYMPHOCYTES % 14.2 % (20.0-50.0); MEAN CORPUSCULAR HEMOGLOBIN 27.9 pg (28.0-32.0); MEAN CORPUSCULAR VOLUME 85.6 fL (80.0-94.0); MEAN PLATELET VOLUME 8.8 fl (7.4-10.4); MONOCYTES % 7.2 % (2.0-8.0); NEUTROPHILS % 77.2 % (40.0-76.0); PLATELET 109 x1000/uL (130-400); RED CELL DISTRIBUTION WIDTH 17.2 % (11.6-14.6)
[2020-10-31 12:16] LABS: CHLORIDE 104 mEq/L (98-107)
[2020-10-31 12:23] LABS: LDL CHOLESTEROL 56 mg/dL (5-100)
[2020-10-31 12:24] LABS: HDL CHOLESTEROL 64 mg/dL (40-59); TOTAL IRON BINDING CAPACITY 422 ug/dL (250-450)
[2020-10-31 12:26] LABS: T4 FREE 1.34 ng/dL (0.76-1.46)
[2020-10-31 13:25] LABS: FERRITIN 13 ng/mL (22-322)
[2020-10-31 14:24] LABS: VITAMIN B12 SERUM 283 pg/mL (211-911)
[2020-10-31 14:28] LABS: FOLIC ACID (FOLATE) SERUM > 20.00 ng/mL (>5.38)
[2020-11-01 04:08] LABS: *CREATININE RANDOM URINE 48.9 mg/dL (Not Estab.)
[2020-11-01 09:06] LABS: VITAMIN D 25-OH 39.1 ng/mL (30.0-100.0)
== END | disposition home or self-care (01) ==
LOC: LAB 11:23
PROVIDERS: ATTEND Internal Medicine Endocrinology, Diabetes & Metabolism
DX: E11.9 Type 2 diabetes mellitus without complications (principal); E05.90 Thyrotoxicosis, unspecified without thyrotoxic crisis or storm; D64.9 Anemia, unspecified; R35.8 Other polyuria; M19.90 Unspecified osteoarthritis, unspecified site
CPT/HCPCS: 36415; 80053; 80061; 81003; 82043; 82105; 82306; 82570; 82607; 82728; 82746; 83036; 83540; 83550; 83921; 84439; 84443; 84550; 85025; 85044

== ENCOUNTER → 2020-11-06 | Outpatient (CLI) | payer BC | END | disposition home or self-care (01) | LOC: US 09:00 | PROVIDERS: ATTEND Internal Medicine Gastroenterology | DX: R16.2 Hepatomegaly with splenomegaly, not elsewhere classified (principal); N28.1 Cyst of kidney, acquired; K76.89 Other specified diseases of liver; K74.60 Unspecified cirrhosis of liver | CPT/HCPCS: 76700 ==

== ENCOUNTER → 2020-12-18 | Outpatient (CLI) | payer BC ==
[2020-12-18 15:58] LABS: BASOPHILS % 0.4 % (0.0-2.0); EOSINOPHILS % 0.9 % (0.0-5.0); HEMATOCRIT. 33.9 % (42.0-52.0); HEMOGLOBIN. 10.6 g/dL (14.0-18.0); LYMPHOCYTES % 12.9 % (20.0-50.0); MEAN CORPUSCULAR HEMOGLOBIN 27.3 pg (28.0-32.0); MEAN CORPUSCULAR VOLUME 86.7 fL (80.0-94.0); MEAN PLATELET VOLUME 9.6 fl (7.4-10.4); MONOCYTES % 7.9 % (2.0-8.0); NEUTROPHILS % 77.9 % (40.0-76.0); PLATELET 138 x1000/uL (130-400); RED CELL DISTRIBUTION WIDTH 17.9 % (11.6-14.6)
[2020-12-18 16:11] LABS: TOTAL IRON BINDING CAPACITY 565 ug/dL (250-450)
== END | disposition home or self-care (01) ==
LOC: LAB 15:01
PROVIDERS: ATTEND Family Medicine Adult Medicine
DX: Z00.00 Encounter for general adult medical examination without abnormal findings (principal)
CPT/HCPCS: 36415; 82728; 83540; 83550; 85025

== ENCOUNTER → 2021-02-02 | Outpatient (CLI) | payer BC ==
[2021-02-02 12:04] LABS: BASOPHILS % 0.5 % (0.0-2.0); EOSINOPHILS % 1.2 % (0.0-5.0); HEMATOCRIT. 35.2 % (42.0-52.0); HEMOGLOBIN. 11.4 g/dL (14.0-18.0); LYMPHOCYTES % 15.2 % (20.0-50.0); MEAN CORPUSCULAR HEMOGLOBIN 29.5 pg (28.0-32.0); MEAN CORPUSCULAR VOLUME 91.3 fL (80.0-94.0); MEAN PLATELET VOLUME 8.7 fl (7.4-10.4); MONOCYTES % 6.6 % (2.0-8.0); NEUTROPHILS % 76.5 % (40.0-76.0); PLATELET 89 x1000/uL (130-400); RED BLOOD CELL COUNT 3.86 mill/uL (4.7-6.1); RED CELL DISTRIBUTION WIDTH 25.6 % (11.6-14.6)
[2021-02-02 12:17] LABS: TOTAL IRON BINDING CAPACITY 342 ug/dL (250-450)
[2021-02-02 12:19] LABS: PLATELET ESTIMATE DECREASED
== END | disposition home or self-care (01) ==
LOC: LAB 11:22
PROVIDERS: ATTEND Internal Medicine Hematology & Oncology
DX: D50.0 Iron deficiency anemia secondary to blood loss (chronic) (principal)
CPT/HCPCS: 36415; 82728; 83540; 83550; 85025

== ENCOUNTER → 2021-03-20 | Outpatient (CLI) | payer BC ==
[2021-03-20 11:37] LABS: CHLORIDE 103 mEq/L (98-107)
[2021-03-20 11:39] LABS: GAMMA GLUTAMYL TRANSPEPTIDASE 174 IU/L (11-50)
== END | disposition home or self-care (01) ==
LOC: LAB 10:17
PROVIDERS: ATTEND Internal Medicine Gastroenterology
DX: E55.9 Vitamin D deficiency, unspecified (principal); R63.4 Abnormal weight loss
CPT/HCPCS: 36415; 80053; 82306; 82977

== ENCOUNTER → 2021-04-24 | Outpatient (CLI) | payer BC ==
[~2021-04-24] MED LIST changes: +REGADENOSON 0.4 MG/5 ML IV ONE
== END | disposition home or self-care (01) ==
LOC: RAD 08:08
PROVIDERS: ATTEND Specialist
DX: I51.7 Cardiomegaly (principal); I25.10 Atherosclerotic heart disease of native coronary artery without angina pectoris; J44.9 Chronic obstructive pulmonary disease, unspecified
CPT/HCPCS: 78452; 93017; 93306; A9500; J2785

== ENCOUNTER → 2021-04-29 | Outpatient (CLI) | payer BC ==
[~2021-04-29] MED LIST changes: +ATOR20TA MT; +HYDR-4001 MT; +INSU300I SQ; +METF-416 MT; -REGADENOSON 0.4 MG/5 ML IV ONE
== END | disposition home or self-care (01) ==
LOC: LAB 10:12
DX: Z01.818 Encounter for other preprocedural examination (principal); M16.12 Unilateral primary osteoarthritis, left hip
CPT/HCPCS: 71046

== ENCOUNTER → 2021-04-30 | Outpatient (CLI) | payer BC | END | disposition home or self-care (01) | LOC: LAB 13:53 | DX: Z01.812 Encounter for preprocedural laboratory examination (principal); Z20.822 Contact with and (suspected) exposure to COVID-19 | CPT/HCPCS: 87426 ==

== ENCOUNTER 2021-05-01 06:11 | Inpatient (IN) | payer BC ==
[~2021-05-01] VITALS: Ht 182.9 cm; Wt 120.2 kg
[~2021-05-01 06:11] MED LIST changes: -ATOR20TA MT; -HYDR-4001 MT; -INSU300I SQ; -METF-416 MT
[2021-05-01] MEDS ORDERED: LIDOCAINE HCL/EPINEPHRINE 1%-EPI 1:100,000 30 ML VIAL INFIL ONE (06:42)
[2021-05-01] MEDS ORDERED: MORPHINE SULFATE/PF 1MG/ML 10ML AMP ONE (06:42)
[2021-05-01] MEDS ORDERED: EPINEPHRINE 1:1000 1 MG/ML AMP ONE ×2 (06:43→08:34)
[2021-05-01] MEDS ORDERED: KETOROLAC 30MG/ML VIAL ONE (06:43)
[2021-05-01] MEDS ORDERED: ROPIVACAINE HCL 10MG/ML 20 ML VIAL EPI ONE ×2 (06:44→07:03)
[2021-05-01] MEDS ORDERED: VANCOMYCIN HCL 1 GM/VIAL ONE (06:44)
[2021-05-01] MEDS ORDERED: POLYMYXIN B SULFATE 500000 UNITS/VIAL ONE (06:52)
[2021-05-01] MEDS ORDERED: SKIN ADHESIVE 0.7 GM EA TOP ONE (07:03)
[2021-05-01] MEDS ORDERED: TRANEXAMIC ACID 1,000 MG in SODIUM CHLORIDE 0.9% 100 ML IV SCH ×2 (07:30→08:30)
[2021-05-01] MEDS ORDERED: FENTANYL CITRATE/PF 50MCG/ML 2ML VIAL ONE ×2 (07:36→10:32)
[2021-05-01] MEDS ORDERED: NEOSTIGMINE METHYLSULFATE 1MG/ML 10 ML VIAL ONE ×2 (07:36→10:25)
[2021-05-01] MEDS ORDERED: ROCURONIUM BROMIDE 10MG/ML VIAL 5ML IV ONE ×2 (07:36→09:32)
[2021-05-01] MEDS ORDERED: PROPOFOL 200MG/20ML VIAL IV ONE ×3 (07:36→10:34)
[2021-05-01] MEDS ORDERED: MIDAZOLAM HCL 2 MG/2 ML VIAL ONE ×2 (07:37→10:30)
[2021-05-01] MEDS ORDERED: GLYCOPYRROLATE 0.2 MG/ML 2ML VIAL ONE ×3 (07:37→10:36)
[2021-05-01] MEDS ORDERED: ONDANSETRON HCL 4MG/2ML INJ ONE (07:38)
[2021-05-01] MEDS ORDERED: DEXAMETHASONE 4MG/ML 1ML VIAL ONE (07:38)
[2021-05-01] MEDS ORDERED: INSU300I SQ (07:43)
[2021-05-01] MEDS ORDERED: ATOR20TA MT (07:45)
[2021-05-01] MEDS ORDERED: METF-416 MT (07:45)
[2021-05-01] MEDS ORDERED: HYDR-4001 MT (07:45)
[2021-05-01] MEDS ORDERED: ONDANSETRON HCL 4MG/2ML INJ IV PRN ×2 (08:15→20:00)
[2021-05-01] MEDS ORDERED: MEPERIDINE HCL/PF 25MG/ML CPJ IV PRN (08:15)
[2021-05-01] MEDS ORDERED: LABETALOL 5MG/ML SYR 20 MG/4 ML SYRINGE IV PRN (08:15)
[2021-05-01] MEDS ORDERED: HYDROMORPHONE HCL/PF 2MG/ML (OR) ONE (08:16)
[2021-05-01] MEDS ORDERED: ALBUMIN HUMAN 12.5G/250ML (5%) IV ONE (09:52)
[2021-05-01 10:12] LABS: HEMOGLOBIN 7.6 g/dL (14.0-18.0)
[2021-05-01] MEDS ORDERED: HYDROCODONE/ACETAMINOPHEN 5/325MG TABLET PO PRN (10:30)
[2021-05-01] MEDS ORDERED: ACETAMINOPHEN 325MG TABLET PO PRN (10:30)
[2021-05-01] MEDS ORDERED: CEFAZOLIN 1000MG PREMIX 50 ML IV SCH (10:30)
[2021-05-01] MEDS ORDERED: KETOROLAC 30MG/ML VIAL IV PRN (10:30)
[2021-05-01] MEDS ORDERED: CEFAZOLIN 1000MG PREMIX 50 ML IV NR (10:30)
[2021-05-01 11:29] LABS: CHLORIDE 112 mEq/L (98-107)
[2021-05-01] MEDS ORDERED: NALOXONE HCL 0.4MG/ML VIAL IV PRN (11:30)
[2021-05-01] MEDS: HYDROMORPHONE HCL/PF 2MG/ML CPJ IV PRN ×2 (12:42→14:46)
[2021-05-01] MEDS ORDERED: DIPYRIDAMOLE 25 MG TABLET PO SCH (13:00)
[2021-05-01] MEDS ORDERED: MAGNESIUM 2 G PREMIX 50 ML IV NR (13:00)
[2021-05-01 13:46] LABS: BG BASE EXCESS -2.1 mmol/L (-2.0-2.0); BG CARBOXYHEMOGLOBIN 0.1 % (0.5-1.5); BG DEOXYHEMOGLOBIN 1.1 % (0.0-5.0); BG FRACTION INSPIRED OXYGEN 65; BG HCO3 ACT 24.4 mmol/L (22.0-26.0); BG METHEMOGLOBIN 0.4 % (0.0-1.5); BG OXYGEN SATURATION 98.9 % (92.0-98.5); BG OXYHEMOGLOBIN 98.4 % (94.0-97.0); BG PCO2 50.1 mmHg (35.0-45.0); BG PH 7.306 (7.350-7.450); BG PO2 189.2 mmHg (75.0-100.0); BG SAMPLE SITE LEFT RADIAL; BG TOTAL HEMOGLOBIN 9.6 g/dL (12.0-18.0); BG VENT MODE VENT - CPAP
[2021-05-01 13:49] LABS: BG PEEP (cmH2O) 5 cmH2O; BG PRESSURE SUPPORT 10
[2021-05-01] MEDS: METOCLOPRAMIDE HCL 10MG/2ML VIAL IV SCH ×2 (14:00→21:23)
[2021-05-01 15:40] VITALS: BP 133/87
[2021-05-01] MEDS ORDERED: INFLUENZA VACCINE 05/PF 0.5 ML SYRINGE IM ONE (16:15)
[2021-05-01 16:19] VITALS: BP 127/86
[2021-05-01] MEDS ORDERED: ALBUTEROL (0.5%) 2.5MG/0.5ML NEB HHN PRN (17:00)
[2021-05-01] MEDS ORDERED: DEXTROSE 50% WATER 50ML SYRINGE IV PRN (17:00)
[2021-05-01] MEDS: DIPHENHYDRAMINE 50MG/ML VIAL IV PRN ×2 (17:14→22:37)
[2021-05-01] MEDS: SENNOSIDES/DOCUSATE SOD 8.6/50MG TABLET PO SCH (17:15)
[2021-05-01] MEDS: HYDROCODONE/ACETAMINOPHEN 10/325MG TABLET PO PRN ×2 (17:15→22:38)
[2021-05-01] MEDS: SPIRONOLACTONE 25MG TABLET PO SCH (17:16)
[2021-05-01] MEDS: TAMSULOSIN HCL 0.4MG SR CAPSULE PO SCH (17:16)
[2021-05-01] MEDS: METFORMIN HCL 500MG TABLET PO SCH (17:17)
[2021-05-01] MEDS: INSULIN LISPRO 100 UNITS/ML SUBCUT SCH ×2 (17:44→21:26)
[2021-05-01 18:00] VITALS: BP 148/99
[2021-05-01 18:10] LABS: HEMATOCRIT 29.4 % (42.0-52.0); HEMOGLOBIN 9.4 g/dL (14.0-18.0)
[2021-05-01 18:24] LABS: CHLORIDE 111 mEq/L (98-107)
[2021-05-01 20:00] VITALS: BP 106/82
[2021-05-01] MEDS ORDERED: ROPINIROLE HCL 1MG TABLET PO SCH (21:00)
[2021-05-01] MEDS: BLOOD SUGAR DIAGNOSTIC STRIP TEST SCH (21:00)
[2021-05-01] MEDS: PREGABALIN 50 MG CAPSULE PO SCH (21:23)
[2021-05-01 22:00] VITALS: BP 134/71
[2021-05-01] MEDS: ROPINIROLE HCL 1MG TABLET PO SCH (22:00)
[2021-05-01] MEDS: IPRATROPIUM/ALBUTEROL 0.5-3(2.5)MG/3ML NEB HHN SCH (22:10)
[2021-05-01] MEDS: CEFAZOLIN 1000MG PREMIX 50 ML IV SCH (22:38)
[2021-05-01] MEDS: INSULIN GLARGINE UD 100 UNITS/ML SYR SUBCUT SCH (22:39)
[2021-05-02] VITALS (9 sets, daily range): BP systolic 131–150; BP diastolic 74–95
[2021-05-02] MEDS: HYDROCODONE/ACETAMINOPHEN 10/325MG TABLET PO PRN ×3 (03:44→13:32)
[2021-05-02] MEDS: DIPHENHYDRAMINE 50MG/ML VIAL IV PRN ×2 (03:45→09:59)
[2021-05-02] MEDS: METOCLOPRAMIDE HCL 10MG/2ML VIAL IV SCH ×2 (06:09→13:19)
[2021-05-02] MEDS: BLOOD SUGAR DIAGNOSTIC STRIP TEST SCH ×2 (06:10→11:45)
[2021-05-02] MEDS: CEFAZOLIN 1000MG PREMIX 50 ML IV SCH ×2 (06:10→13:33)
[2021-05-02] MEDS ORDERED: OMEPRAZOLE 20MG CAPSULE EXTENDED RELEASE PO SCH (06:50)
[2021-05-02] MEDS ORDERED: LEVOTHYROXINE SODIUM 125MCG TABLET PO SCH (06:50)
[2021-05-02] MEDS: IPRATROPIUM/ALBUTEROL 0.5-3(2.5)MG/3ML NEB HHN SCH ×2 (08:24→08:32)
[2021-05-02] MEDS: PREGABALIN 50 MG CAPSULE PO SCH (08:33)
[2021-05-02] MEDS: METFORMIN HCL 500MG TABLET PO SCH (08:34)
[2021-05-02] MEDS: TAMSULOSIN HCL 0.4MG SR CAPSULE PO SCH (08:35)
[2021-05-02] MEDS: SENNOSIDES/DOCUSATE SOD 8.6/50MG TABLET PO SCH (08:35)
[2021-05-02] MEDS: SPIRONOLACTONE 25MG TABLET PO SCH (08:36)
[2021-05-02] MEDS: ROPINIROLE HCL 1MG TABLET PO SCH (08:37)
[2021-05-02] MEDS: INSULIN LISPRO 100 UNITS/ML SUBCUT SCH ×2 (08:45→12:41)
[2021-05-02] MEDS ORDERED: AMLODIPINE 10MG TABLET PO SCH (09:00)
[2021-05-02 09:07] LABS: BASOPHILS % 0.1 % (0.0-2.0); HEMATOCRIT. 24.9 % (42.0-52.0); HEMOGLOBIN. 8.3 g/dL (14.0-18.0); LYMPHOCYTES % 8.4 % (20.0-50.0); MEAN CORPUSCULAR HEMOGLOBIN 27.9 pg (28.0-32.0); MEAN CORPUSCULAR VOLUME 83.5 fL (80.0-94.0); MONOCYTES % 8.9 % (2.0-8.0); NEUTROPHILS % 82.6 % (40.0-76.0); PLATELET 97 x1000/uL (130-400); RED BLOOD CELL COUNT 2.98 mill/uL (4.7-6.1); RED CELL DISTRIBUTION WIDTH 19.3 % (11.6-14.6)
[2021-05-02] MEDS: INSULIN GLARGINE UD 100 UNITS/ML SYR SUBCUT SCH (09:44)
[2021-05-02 09:48] LABS: CHLORIDE 106 mEq/L (98-107)
[2021-05-02] MEDS ORDERED: ENOXAPARIN 30MG/0.3ML SYR SUBCUT SCH (10:00)
== END 2021-05-02 16:20 | disposition home health service (06) | DRG 470 ==
LOC: OR 06:11 → 3WST 16:00
PROC: 0SRB0JA Replacement of Left Hip Joint with Synthetic Substitute, Uncemented, Open Approach (ICD-10-PCS; principal; 2021-05-01)
PROC: 30233N1 Transfusion of Nonautologous Red Blood Cells into Peripheral Vein, Percutaneous Approach (ICD-10-PCS; 2021-05-01)
DX: M16.12 Unilateral primary osteoarthritis, left hip (principal); K76.6 Portal hypertension; D64.9 Anemia, unspecified; E66.01 Morbid (severe) obesity due to excess calories; E78.5 Hyperlipidemia, unspecified; I10 Essential (primary) hypertension; K74.60 Unspecified cirrhosis of liver; I25.10 Atherosclerotic heart disease of native coronary artery without angina pectoris; J44.9 Chronic obstructive pulmonary disease, unspecified; E11.9 Type 2 diabetes mellitus without complications; E03.9 Hypothyroidism, unspecified; Z68.35 Body mass index [BMI] 35.0-35.9, adult; Z79.899 Other long term (current) drug therapy
CPT/HCPCS: 36415; 36600; 71045; 73502; 76000; 80048; 80053; 82375; 82805; 82962; 83735; 85014; 85018; 85025; 86850; 86900; 86920; 88305; 88311; 90686; 93005; 97162; 97166; A6261; J0690; J1100; J1170; J1200; J1650; J1815; J1885; J2175; J2250; J2274; J2405; J2704; J2710; J2765; J2795; J3010; J3370; J3475; J3490; J7040; J7050; P9016; P9041; A4315

== ENCOUNTER → 2021-05-07 | Outpatient (CLI) | payer BC ==
[~2021-05-07] MED LIST changes: +ATOR20TA MT; +HYDR-4001 MT; +INSU300I SQ; -LANTUSUD SUBCUT; +METF-416 MT
== END | disposition home or self-care (01) ==
LOC: US 12:17
DX: R60.0 Localized edema (principal)
CPT/HCPCS: 93971

== ENCOUNTER → 2021-05-12 | Outpatient (CLI) | payer BC ==
[2021-05-12 10:53] LABS: BASOPHILS % 0.4 % (0.0-2.0); EOSINOPHILS % 0.9 % (0.0-5.0); HEMATOCRIT. 27.4 % (42.0-52.0); HEMOGLOBIN. 8.6 g/dL (14.0-18.0); LYMPHOCYTES % 13.8 % (20.0-50.0); MEAN CORPUSCULAR HEMOGLOBIN 26.2 pg (28.0-32.0); MEAN CORPUSCULAR VOLUME 83.4 fL (80.0-94.0); MONOCYTES % 8.4 % (2.0-8.0); NEUTROPHILS % 76.5 % (40.0-76.0); PLATELET 143 x1000/uL (130-400); RED BLOOD CELL COUNT 3.29 mill/uL (4.7-6.1); RED CELL DISTRIBUTION WIDTH 20.2 % (11.6-14.6)
[2021-05-12 11:10] LABS: TOTAL IRON BINDING CAPACITY 396 ug/dL (250-450)
== END | disposition home or self-care (01) ==
LOC: LAB 10:18
PROVIDERS: ATTEND Internal Medicine Hematology & Oncology
DX: D50.0 Iron deficiency anemia secondary to blood loss (chronic) (principal)
CPT/HCPCS: 36415; 82728; 83540; 83550; 85025

== ENCOUNTER 2021-05-25 11:44 | Inpatient (IN) | payer BC ==
[~2021-05-25] VITALS: Ht 182.9 cm; Wt 125.2 kg
[2021-05-25] MEDS ORDERED: MORPHINE SULFATE 4 MG/ML CPJ (NOT FOR IM USE) IV STA (12:33)
[2021-05-25 13:06] LABS: BASOPHILS % 0.4 % (0.0-2.0); EOSINOPHILS % 1.6 % (0.0-5.0); HEMATOCRIT. 27.2 % (42.0-52.0); HEMOGLOBIN. 8.6 g/dL (14.0-18.0); LYMPHOCYTES % 15.2 % (20.0-50.0); MEAN CORPUSCULAR HEMOGLOBIN 25.5 pg (28.0-32.0); MEAN PLATELET VOLUME 8.2 fl (7.4-10.4); MONOCYTES % 11.5 % (2.0-8.0); NEUTROPHILS % 71.3 % (40.0-76.0); PLATELET 125 x1000/uL (130-400); RED BLOOD CELL COUNT 3.36 mill/uL (4.7-6.1); RED CELL DISTRIBUTION WIDTH 19.8 % (11.6-14.6)
[2021-05-25 13:17] LABS: CHLORIDE 110 mEq/L (98-107)
[2021-05-25] MEDS ORDERED: KETOROLAC 15MG/ML VIAL IV ONE (16:15)
[2021-05-25] MEDS ORDERED: ALBUTEROL (0.083%) 2.5MG/3ML NEB HHN NR (17:15)
[2021-05-25] MEDS ORDERED: IPRATROPIUM BROMIDE (0.02%) 0.5MG/2.5ML NEB HHN NR (17:15)
[2021-05-25] MEDS ORDERED: LORAZEPAM 0.5MG TABLET PO PRN (18:00)
[2021-05-25] MEDS ORDERED: MAGNESIUM/ALUMINUM HYDROXIDE/SIMETHICONE 30ML UDC PO PRN (18:00)
[2021-05-25] MEDS ORDERED: DOCUSATE SODIUM 100MG CAPSULE PO PRN (18:00)
[2021-05-25] MEDS ORDERED: CLONIDINE 0.1MG TABLET PO PRN (18:00)
[2021-05-25] MEDS ORDERED: ACETAMINOPHEN 325MG TABLET PO PRN ×2 (18:00)
[2021-05-25] MEDS ORDERED: ACETAMINOPHEN 650MG SUPP PR PRN ×2 (18:00)
[2021-05-25] MEDS ORDERED: HYDROCODONE/ACETAMINOPHEN 5/325MG TABLET PO PRN (18:00)
[2021-05-25] MEDS ORDERED: GUAIFENESIN 200MG/10ML SUGAR FREE UDC PO PRN (18:00)
[2021-05-25] MEDS ORDERED: ONDANSETRON HCL 4MG/2ML INJ IV PRN (18:00)
[2021-05-25] MEDS: ATORVASTATIN CALCIUM 20MG TABLET PO SCH (20:00)
[2021-05-25] MEDS ORDERED: ROPINIROLE HCL 1MG TABLET PO SCH ×2 (20:00→22:00)
[2021-05-25] MEDS: AMLODIPINE 10MG TABLET PO SCH (20:00)
[2021-05-25] MEDS ORDERED: OXYCODONE HCL/ACETAMINOPHEN 5/325MG TABLET PO PRN (20:15)
[2021-05-25] MEDS ORDERED: KETOROLAC 30MG/ML VIAL IV PRN (20:15)
[2021-05-25] MEDS ORDERED: DEXAMETHASONE 4MG TABLET PO NR (20:15)
[2021-05-25 21:25] VITALS: BP 154/81
[2021-05-25] MEDS: MORPHINE SULFATE 2 MG/ML CPJ (NOT FOR IM USE) IV PRN (21:26)
[2021-05-25 21:30] VITALS: BP 154/81
[2021-05-25] MEDS ORDERED: DEXTROSE 50% WATER 50ML SYRINGE IV PRN (22:00)
[2021-05-25] MEDS: TAMSULOSIN HCL 0.4MG SR CAPSULE PO SCH (22:59)
[2021-05-25] MEDS: PREGABALIN 75MG CAPSULE PO SCH (23:00)
[2021-05-25] MEDS: ROPINIROLE HCL 1MG TABLET PO SCH (23:01)
[2021-05-25] MEDS: DIPHENHYDRAMINE 50MG/ML VIAL IV PRN (23:55)
[2021-05-26] VITALS (10 sets, daily range): BP systolic 122–166; BP diastolic 65–84
[2021-05-26] MEDS: MORPHINE SULFATE 2 MG/ML CPJ (NOT FOR IM USE) IV PRN ×3 (02:45→19:49)
[2021-05-26] MEDS: BLOOD SUGAR DIAGNOSTIC STRIP TEST SCH ×4 (06:39→21:00)
[2021-05-26] MEDS: INSULIN LISPRO 100 UNITS/ML SUBCUT SCH ×4 (06:43→21:27)
[2021-05-26] MEDS: ROPINIROLE HCL 1MG TABLET PO SCH (06:43)
[2021-05-26] MEDS: LEVOTHYROXINE SODIUM 125MCG TABLET PO SCH (06:45)
[2021-05-26] MEDS: IPRATROPIUM/ALBUTEROL 0.5-3(2.5)MG/3ML NEB HHN PRN (07:19)
[2021-05-26 07:37] LABS: BASOPHILS % 0.4 % (0.0-2.0); EOSINOPHILS % 0.8 % (0.0-5.0); HEMATOCRIT. 24.5 % (42.0-52.0); HEMOGLOBIN. 7.8 g/dL (14.0-18.0); LYMPHOCYTES % 7.6 % (20.0-50.0); MEAN CORPUSCULAR HEMOGLOBIN 25.8 pg (28.0-32.0); MEAN CORPUSCULAR VOLUME 80.5 fL (80.0-94.0); MEAN PLATELET VOLUME 8.6 fl (7.4-10.4); MONOCYTES % 4.5 % (2.0-8.0); NEUTROPHILS % 86.7 % (40.0-76.0); PLATELET 109 x1000/uL (130-400); RED BLOOD CELL COUNT 3.04 mill/uL (4.7-6.1); RED CELL DISTRIBUTION WIDTH 20.4 % (11.6-14.6)
[2021-05-26] MEDS ORDERED: SPIRONOLACTONE 25MG TABLET PO SCH (09:00)
[2021-05-26] MEDS ORDERED: SPIRONOLACTONE 5MG/ML 1ML ORAL SYR(NEO) PO SCH (09:00)
[2021-05-26 09:26] LABS: CHLORIDE 108 mEq/L (98-107)
[2021-05-26 09:27] LABS: LDL CHOLESTEROL 45 mg/dL (5-100)
[2021-05-26 09:29] LABS: CREATINE KINASE 122 IU/L (39-308); HDL CHOLESTEROL 47 mg/dL (40-59)
[2021-05-26] MEDS: AMLODIPINE 10MG TABLET PO SCH (09:59)
[2021-05-26] MEDS: ATORVASTATIN CALCIUM 20MG TABLET PO SCH (09:59)
[2021-05-26] MEDS: SPIRONOLACTONE 25MG TABLET PO SCH (09:59)
[2021-05-26] MEDS: PREGABALIN 75MG CAPSULE PO SCH ×2 (09:59→21:01)
[2021-05-26] MEDS: ALLOPURINOL 300 MG TABLET PO SCH (11:54)
[2021-05-26] MEDS ORDERED: DEXAMETHASONE 4MG TABLET PO SCH (14:00)
[2021-05-26] MEDS ORDERED: INDOMETHACIN 25MG CAPSULE PO SCH (14:00)
[2021-05-26] MEDS: TIZANIDINE HCL 2MG TABLET PO SCH ×2 (14:19→22:09)
[2021-05-26] MEDS: ROPINIROLE 4 MG XX SCH ×2 (14:22→19:50)
[2021-05-26] MEDS: ENOXAPARIN 30MG/0.3ML SYR SUBCUT SCH (17:39)
[2021-05-26] MEDS ORDERED: SODIUM CHLORIDE 0.9% 500 ML IV ONE (18:30)
[2021-05-26] MEDS: TAMSULOSIN HCL 0.4MG SR CAPSULE PO SCH (21:01)
[2021-05-26] MEDS: DIPHENHYDRAMINE 50MG/ML VIAL IV PRN (21:02)
[2021-05-27] VITALS (9 sets, daily range): BP systolic 107–141; BP diastolic 53–95
[2021-05-27] MEDS: OXYCODONE HCL/ACETAMINOPHEN 5/325MG TABLET PO PRN ×2 (00:25→11:07)
[2021-05-27] MEDS: MORPHINE SULFATE 2 MG/ML CPJ (NOT FOR IM USE) IV PRN ×2 (02:55→07:13)
[2021-05-27] MEDS: DIPHENHYDRAMINE 50MG/ML VIAL IV PRN ×2 (03:22→07:19)
[2021-05-27] MEDS: IPRATROPIUM/ALBUTEROL 0.5-3(2.5)MG/3ML NEB HHN PRN ×3 (05:19→15:12)
[2021-05-27] MEDS: TIZANIDINE HCL 2MG TABLET PO SCH ×2 (06:00→14:07)
[2021-05-27] MEDS: LEVOTHYROXINE SODIUM 125MCG TABLET PO SCH (06:37)
[2021-05-27] MEDS: ENOXAPARIN 30MG/0.3ML SYR SUBCUT SCH (06:38)
[2021-05-27] MEDS: BLOOD SUGAR DIAGNOSTIC STRIP TEST SCH ×3 (06:38→16:53)
[2021-05-27 07:25] LABS: BASOPHILS % 0.1 % (0.0-2.0); HEMATOCRIT. 23.7 % (42.0-52.0); HEMOGLOBIN. 7.6 g/dL (14.0-18.0); LYMPHOCYTES % 7.9 % (20.0-50.0); MEAN CORPUSCULAR HEMOGLOBIN 25.7 pg (28.0-32.0); MEAN CORPUSCULAR VOLUME 80.2 fL (80.0-94.0); MEAN PLATELET VOLUME 8.6 fl (7.4-10.4); MONOCYTES % 6.7 % (2.0-8.0); NEUTROPHILS % 85.3 % (40.0-76.0); PLATELET 109 x1000/uL (130-400); RED BLOOD CELL COUNT 2.95 mill/uL (4.7-6.1); RED CELL DISTRIBUTION WIDTH 19.3 % (11.6-14.6)
[2021-05-27 07:34] LABS: CHLORIDE 105 mEq/L (98-107)
[2021-05-27] MEDS: PREGABALIN 75MG CAPSULE PO SCH (08:13)
[2021-05-27] MEDS: ATORVASTATIN CALCIUM 20MG TABLET PO SCH (08:13)
[2021-05-27] MEDS: AMLODIPINE 10MG TABLET PO SCH (08:13)
[2021-05-27] MEDS: SPIRONOLACTONE 25MG TABLET PO SCH (08:14)
[2021-05-27] MEDS: ROPINIROLE 4 MG XX SCH ×2 (08:15→17:49)
[2021-05-27] MEDS: INSULIN LISPRO 100 UNITS/ML SUBCUT SCH ×3 (08:15→17:48)
[2021-05-27] MEDS: ALLOPURINOL 300 MG TABLET PO SCH (09:52)
[2021-05-27] MEDS ORDERED: LIDOCAINE 5% PATCH TOP SCH (14:00)
[2021-05-27] MEDS ORDERED: METHYL SALICYLATE/MENTHOL CREAM 85GM TOP PRN (14:15)
[2021-05-27] MEDS ORDERED: PROPRANOLOL HCL 10MG TABLET PO SCH (17:00)
[2021-05-27] MEDS ORDERED: TIZA4TAB5 PO (19:01)
[2021-05-27] MEDS ORDERED: NAPR-681 MT (19:01)
== END 2021-05-27 18:45 | disposition home or self-care (01) | DRG 552 ==
LOC: ER 11:44 → 5WST 18:25 → ENRESERV 20:06 → 3WST 05-26 12:35
PROVIDERS: ADMIT Family Medicine Adult Medicine; ATTEND Family Medicine Adult Medicine
PROC: 5A09357 Assistance with Respiratory Ventilation, Less than 24 Consecutive Hours, Continuous Positive Airway Pressure (ICD-10-PCS; principal; 2021-05-25)
DX: M54.2 Cervicalgia (principal); D61.818 Other pancytopenia; K76.6 Portal hypertension; E03.9 Hypothyroidism, unspecified; E11.42 Type 2 diabetes mellitus with diabetic polyneuropathy; E66.01 Morbid (severe) obesity due to excess calories; E78.00 Pure hypercholesterolemia, unspecified; E78.5 Hyperlipidemia, unspecified; F17.200 Nicotine dependence, unspecified, uncomplicated; G20 Parkinson's disease; G25.81 Restless legs syndrome; G89.4 Chronic pain syndrome; I25.10 Atherosclerotic heart disease of native coronary artery without angina pectoris; J44.9 Chronic obstructive pulmonary disease, unspecified; K74.60 Unspecified cirrhosis of liver; K75.81 Nonalcoholic steatohepatitis (NASH); M10.9 Gout, unspecified; N40.0 Benign prostatic hyperplasia without lower urinary tract symptoms; M19.90 Unspecified osteoarthritis, unspecified site; G47.33 Obstructive sleep apnea (adult) (pediatric); K21.9 Gastro-esophageal reflux disease without esophagitis; R53.81 Other malaise; Z20.822 Contact with and (suspected) exposure to COVID-19; R26.89 Other abnormalities of gait and mobility; Z96.642 Presence of left artificial hip joint; Z98.1 Arthrodesis status; Z79.4 Long term (current) use of insulin; Z79.51 Long term (current) use of inhaled steroids; Z79.82 Long term (current) use of aspirin; Z79.899 Other long term (current) drug therapy; Z82.49 Family history of ischemic heart disease and other diseases of the circulatory system; Z88.8 Allergy status to other drugs, medicaments and biological substances; Z79.84 Long term (current) use of oral hypoglycemic drugs; Z68.37 Body mass index [BMI] 37.0-37.9, adult
CPT/HCPCS: 36415; 70551; 71045; 72141; 80048; 80053; 80061; 82550; 82962; 83036; 83735; 83880; 84443; 84550; 85025; 86140; 87426; 93005; 93970; 94640; 94660; 97162; 97166; 99285; J1200; J1650; J1815; J1885; J2270; J7040; J8540

== ENCOUNTER → 2021-06-11 | Outpatient (CLI) | payer BC ==
[~2021-06-11] MED LIST changes: +NAPR-681 MT; +TIZA4TAB5 PO
[2021-06-11 12:08] LABS: BASOPHILS % 0.4 % (0.0-2.0); EOSINOPHILS % 1.4 % (0.0-5.0); HEMATOCRIT. 30.1 % (42.0-52.0); HEMOGLOBIN. 9.5 g/dL (14.0-18.0); LYMPHOCYTES % 13.5 % (20.0-50.0); MEAN CORPUSCULAR HEMOGLOBIN 27.1 pg (28.0-32.0); MEAN CORPUSCULAR VOLUME 86.2 fL (80.0-94.0); MEAN PLATELET VOLUME 9.1 fl (7.4-10.4); MONOCYTES % 6.1 % (2.0-8.0); NEUTROPHILS % 78.6 % (40.0-76.0); PLATELET 77 x1000/uL (130-400); RED BLOOD CELL COUNT 3.49 mill/uL (4.7-6.1); RED CELL DISTRIBUTION WIDTH 26.6 % (11.6-14.6)
[2021-06-11 12:20] LABS: CHLORIDE 108 mEq/L (98-107)
[2021-06-11 12:28] LABS: LDL CHOLESTEROL 58 mg/dL (5-100)
[2021-06-11 12:29] LABS: HDL CHOLESTEROL 62 mg/dL (40-59)
[2021-06-11 12:33] LABS: T4 FREE 1.13 ng/dL (0.76-1.46)
[2021-06-11 12:51] LABS: PLATELET ESTIMATE DECREASED
[2021-06-12 13:07] LABS: *CREATININE RANDOM URINE 46.1 mg/dL (Not Estab.)
== END | disposition home or self-care (01) ==
LOC: LAB 11:42
PROVIDERS: ATTEND Internal Medicine Endocrinology, Diabetes & Metabolism
DX: E11.9 Type 2 diabetes mellitus without complications (principal); I10 Essential (primary) hypertension; E05.90 Thyrotoxicosis, unspecified without thyrotoxic crisis or storm
CPT/HCPCS: 36415; 80053; 80061; 82043; 82570; 83036; 84439; 84443; 84481; 85025

== ENCOUNTER → 2021-06-16 | Outpatient (CLI) | payer BC ==
[2021-06-16 11:06] LABS: BASOPHILS % 0.4 % (0.0-2.0); EOSINOPHILS % 1.4 % (0.0-5.0); HEMATOCRIT. 30.7 % (42.0-52.0); HEMOGLOBIN. 9.7 g/dL (14.0-18.0); LYMPHOCYTES % 15.1 % (20.0-50.0); MEAN CORPUSCULAR HEMOGLOBIN 27.9 pg (28.0-32.0); MEAN CORPUSCULAR VOLUME 88.2 fL (80.0-94.0); MEAN PLATELET VOLUME 8.7 fl (7.4-10.4); MONOCYTES % 7.2 % (2.0-8.0); NEUTROPHILS % 75.9 % (40.0-76.0); PLATELET 79 x1000/uL (130-400); RED BLOOD CELL COUNT 3.49 mill/uL (4.7-6.1); RED CELL DISTRIBUTION WIDTH 29.7 % (11.6-14.6)
[2021-06-16 11:21] LABS: PLATELET ESTIMATE DECREASED
[2021-06-16 11:28] LABS: TOTAL IRON BINDING CAPACITY 386 ug/dL (250-450)
== END | disposition home or self-care (01) ==
LOC: PVL 09:40
PROVIDERS: ATTEND Specialist
DX: R22.43 Localized swelling, mass and lump, lower limb, bilateral (principal); I87.1 Compression of vein
CPT/HCPCS: 36415; 82728; 83540; 83550; 85025

== ENCOUNTER → 2021-07-31 | Outpatient (CLI) | payer BC ==
[~2021-07-31] MED LIST changes: +TIZA-204 PO; -TIZA4TAB5 PO
[2021-07-31 08:31] LABS: BASOPHILS % 0.4 % (0.0-2.0); EOSINOPHILS % 0.9 % (0.0-5.0); HEMATOCRIT. 32.9 % (42.0-52.0); HEMOGLOBIN. 10.5 g/dL (14.0-18.0); LYMPHOCYTES % 12.9 % (20.0-50.0); MEAN CORPUSCULAR HEMOGLOBIN 27.7 pg (28.0-32.0); MEAN PLATELET VOLUME 8.7 fl (7.4-10.4); MONOCYTES % 8.4 % (2.0-8.0); NEUTROPHILS % 77.4 % (40.0-76.0); PLATELET 87 x1000/uL (130-400); RED BLOOD CELL COUNT 3.79 mill/uL (4.7-6.1); RED CELL DISTRIBUTION WIDTH 20.1 % (11.6-14.6)
[2021-07-31 08:52] LABS: TOTAL IRON BINDING CAPACITY 427 ug/dL (250-450)
== END | disposition home or self-care (01) ==
LOC: LAB 08:07
PROVIDERS: ATTEND Internal Medicine Hematology & Oncology
DX: D50.0 Iron deficiency anemia secondary to blood loss (chronic) (principal)
CPT/HCPCS: 36415; 82728; 83540; 83550; 85025

== ENCOUNTER → 2021-09-08 | Outpatient (CLI) | payer BC ==
[2021-09-08 11:34] LABS: BASOPHILS % 0.4 % (0.0-2.0); EOSINOPHILS % 0.7 % (0.0-5.0); HEMATOCRIT. 34.8 % (42.0-52.0); HEMOGLOBIN. 11.3 g/dL (14.0-18.0); MEAN CORPUSCULAR HEMOGLOBIN 29.6 pg (28.0-32.0); MEAN CORPUSCULAR VOLUME 90.9 fL (80.0-94.0); MEAN PLATELET VOLUME 8.6 fl (7.4-10.4); MONOCYTES % 8.7 % (2.0-8.0); NEUTROPHILS % 74.2 % (40.0-76.0); PLATELET 72 x1000/uL (130-400); RED BLOOD CELL COUNT 3.83 mill/uL (4.7-6.1); RED CELL DISTRIBUTION WIDTH 20.6 % (11.6-14.6)
== END | disposition home or self-care (01) ==
LOC: LAB 11:11
PROVIDERS: ATTEND Family Medicine Adult Medicine
DX: S81.802A Unspecified open wound, left lower leg, initial encounter (principal); X58.XXXA Exposure to other specified factors, initial encounter; Y93.89 Activity, other specified; Y92.89 Other specified places as the place of occurrence of the external cause; Y99.8 Other external cause status
CPT/HCPCS: 36415; 85025

== ENCOUNTER → 2021-11-30 | Outpatient (CLI) | payer BC ==
[2021-11-30 09:55] LABS: BASOPHILS % 0.3 % (0.0-2.0); EOSINOPHILS % 0.8 % (0.0-5.0); HEMATOCRIT. 35.5 % (42.0-52.0); LYMPHOCYTES % 14.4 % (20.0-50.0); MEAN CORPUSCULAR HEMOGLOBIN 32.3 pg (28.0-32.0); MEAN CORPUSCULAR VOLUME 95.5 fL (80.0-94.0); MEAN PLATELET VOLUME 8.9 fl (7.4-10.4); MONOCYTES % 6.8 % (2.0-8.0); NEUTROPHILS % 77.7 % (40.0-76.0); PLATELET 95 x1000/uL (130-400); RED BLOOD CELL COUNT 3.72 mill/uL (4.7-6.1)
[2021-11-30 12:23] LABS: TOTAL IRON BINDING CAPACITY 301 ug/dL (250-450)
== END | disposition home or self-care (01) ==
LOC: LAB 09:19
PROVIDERS: ATTEND Internal Medicine Hematology & Oncology
DX: D50.0 Iron deficiency anemia secondary to blood loss (chronic) (principal)
CPT/HCPCS: 36415; 82728; 83540; 83550; 85025

== ENCOUNTER → 2021-12-10 | Outpatient (CLI) | payer BC ==
[2021-12-10 11:24] LABS: BASOPHILS % 0.4 % (0.0-2.0); EOSINOPHILS % 1.1 % (0.0-5.0); HEMATOCRIT. 33.6 % (42.0-52.0); HEMOGLOBIN. 11.4 g/dL (14.0-18.0); LYMPHOCYTES % 14.2 % (20.0-50.0); MEAN CORPUSCULAR HEMOGLOBIN 32.7 pg (28.0-32.0); MEAN CORPUSCULAR VOLUME 96.6 fL (80.0-94.0); MEAN PLATELET VOLUME 9.3 fl (7.4-10.4); MONOCYTES % 6.3 % (2.0-8.0); PLATELET 78 x1000/uL (130-400); RED BLOOD CELL COUNT 3.48 mill/uL (4.7-6.1); RED CELL DISTRIBUTION WIDTH 14.7 % (11.6-14.6)
[2021-12-10 11:34] LABS: INR 1.1; PROTHROMBIN TIME 11.3 sec (9.6-11.0)
[2021-12-10 11:38] LABS: CHLORIDE 103 mEq/L (98-107)
[2021-12-10 11:53] LABS: GAMMA GLUTAMYL TRANSPEPTIDASE 131 IU/L (11-50); HDL CHOLESTEROL 59 mg/dL (40-59); LDL CHOLESTEROL 61 mg/dL (5-100); T4 FREE 1.18 ng/dL (0.76-1.46); TOTAL IRON BINDING CAPACITY 343 ug/dL (250-450)
[2021-12-10 11:59] LABS: FOLIC ACID (FOLATE) SERUM 11.7 ng/mL (>5.38)
[2021-12-10 14:31] LABS: PROSTRATE SPECIFIC AG TOTAL 2.1 ng/mL (0.0-4.0)
== END | disposition home or self-care (01) ==
LOC: LAB 10:01
PROVIDERS: ATTEND Family Medicine Adult Medicine
DX: I10 Essential (primary) hypertension (principal); D50.9 Iron deficiency anemia, unspecified; E11.8 Type 2 diabetes mellitus with unspecified complications; K21.9 Gastro-esophageal reflux disease without esophagitis; E03.9 Hypothyroidism, unspecified
CPT/HCPCS: 36415; 71101; 80053; 80061; 82105; 82306; 82728; 82746; 82977; 83036; 83540; 83550; 84153; 84439; 84443; 84481; 85025; G0103

== ENCOUNTER → 2022-03-11 | Outpatient (CLI) | payer BC ==
[~2022-03-11] MED LIST changes: -MOME13HF INH; +MOME13HF11 INH
[2022-03-11 12:19] LABS: CHLORIDE 104 mEq/L (98-107)
== END | disposition home or self-care (01) ==
LOC: LAB 11:43
PROVIDERS: ATTEND Internal Medicine Gastroenterology
DX: R10.9 Unspecified abdominal pain (principal)
CPT/HCPCS: 36415; 80053

== ENCOUNTER → 2022-03-26 | Outpatient (CLI) | payer BC ==
[2022-03-26 09:49] LABS: BASOPHILS % 0.3 % (0.0-2.0); EOSINOPHILS % 0.9 % (0.0-5.0); HEMATOCRIT. 33.9 % (42.0-52.0); HEMOGLOBIN. 11.3 g/dL (14.0-18.0); LYMPHOCYTES % 18.3 % (20.0-50.0); MEAN CORPUSCULAR HEMOGLOBIN 29.5 pg (28.0-32.0); MONOCYTES % 8.8 % (2.0-8.0); NEUTROPHILS % 71.7 % (40.0-76.0); PLATELET 94 x1000/uL (130-400); RED BLOOD CELL COUNT 3.81 mill/uL (4.7-6.1); RED CELL DISTRIBUTION WIDTH 15.5 % (11.6-14.6)
[2022-03-26 10:05] LABS: CHLORIDE 102 mEq/L (98-107)
[2022-03-26 10:10] LABS: TOTAL IRON BINDING CAPACITY 382 ug/dL (250-450)
== END | disposition home or self-care (01) ==
LOC: LAB 08:57
PROVIDERS: ATTEND Internal Medicine Hematology & Oncology
DX: D50.0 Iron deficiency anemia secondary to blood loss (chronic) (principal)
CPT/HCPCS: 36415; 80053; 82728; 83540; 83550; 85025

== ENCOUNTER → 2022-04-14 | Outpatient (CLI) | payer BC ==
[~2022-04-14] MED LIST changes: +BARIUM SULFATE 450ML ORAL SUSP ONE; +IOHEXOL-300 100 ML BOTTLE ONE
== END | disposition home or self-care (01) ==
LOC: CT 08:05
PROVIDERS: ATTEND Internal Medicine Gastroenterology
DX: K74.60 Unspecified cirrhosis of liver (principal); K57.30 Diverticulosis of large intestine without perforation or abscess without bleeding; R16.1 Splenomegaly, not elsewhere classified; K82.8 Other specified diseases of gallbladder; N40.0 Benign prostatic hyperplasia without lower urinary tract symptoms; K42.9 Umbilical hernia without obstruction or gangrene; M47.819 Spondylosis without myelopathy or radiculopathy, site unspecified; D64.9 Anemia, unspecified; R79.89 Other specified abnormal findings of blood chemistry; Z96.642 Presence of left artificial hip joint
CPT/HCPCS: 74178; Q9967

== ENCOUNTER 2022-05-16 10:09 | Inpatient (IN) | payer BC ==
[~2022-05-16] VITALS: Ht 182.9 cm; Wt 129.7 kg
[~2022-05-16 10:09] MED LIST changes: -BARIUM SULFATE 450ML ORAL SUSP ONE; -IOHEXOL-300 100 ML BOTTLE ONE
[2022-05-16] MEDS ORDERED: IPRATROPIUM BROMIDE (0.02%) 0.5MG/2.5ML NEB HHN STA (10:58)
[2022-05-16] MEDS ORDERED: METHYLPREDNISOLONE SOD SUCC 125 MG/2 ML VIAL IV STA (10:58)
[2022-05-16] MEDS ORDERED: MAGNESIUM 2 G PREMIX 50 ML IV ONE (11:00)
[2022-05-16] MEDS: ALBUTEROL (0.083%) 2.5MG/3ML NEB HHN SCH ×3 (11:30→12:55)
[2022-05-16 12:17] LABS: BASOPHILS % 0.6 % (0.0-2.0); EOSINOPHILS % 1.3 % (0.0-5.0); HEMATOCRIT. 27.3 % (42.0-52.0); HEMOGLOBIN. 8.8 g/dL (14.0-18.0); LYMPHOCYTES % 13.7 % (20.0-50.0); MEAN CORPUSCULAR HEMOGLOBIN 28.3 pg (28.0-32.0); MEAN CORPUSCULAR VOLUME 87.7 fL (80.0-94.0); MONOCYTES % 11.6 % (2.0-8.0); NEUTROPHILS % 72.8 % (40.0-76.0); PLATELET 93 x1000/uL (130-400); RED BLOOD CELL COUNT 3.12 mill/uL (4.7-6.1); RED CELL DISTRIBUTION WIDTH 17.1 % (11.6-14.6)
[2022-05-16 12:26] LABS: CHLORIDE 104 mEq/L (98-107)
[2022-05-16] MEDS ORDERED: FUROSEMIDE 40MG/4ML VIAL IVP NR (12:45)
[2022-05-16] MEDS ORDERED: ONDANSETRON HCL 4MG/2ML INJ IV PRN (13:15)
[2022-05-16] MEDS ORDERED: DIPHENHYDRAMINE 50MG/ML VIAL IV PRN (13:15)
[2022-05-16] MEDS ORDERED: IOHEXOL-350 100 ML BOTTLE ONE (14:43)
[2022-05-16 16:00] VITALS: BP 139/99
[2022-05-16 16:29] LABS: BG BASE EXCESS -2.7 mmol/L (-2.0-2.0); BG CARBOXYHEMOGLOBIN 0.5 % (0.5-1.5); BG DEOXYHEMOGLOBIN 5.6 % (0.0-5.0); BG FRACTION INSPIRED OXYGEN 21; BG HCO3 ACT 21.7 mmol/L (22.0-26.0); BG METHEMOGLOBIN 0.4 % (0.0-1.5); BG OXYGEN SATURATION 94.3 % (92.0-98.5); BG OXYHEMOGLOBIN 93.5 % (94.0-97.0); BG PCO2 36.5 mmHg (35.0-45.0); BG PH 7.393 (7.350-7.450); BG PO2 76.4 mmHg (75.0-100.0); BG SAMPLE SITE RIGHT RADIAL; BG TOTAL HEMOGLOBIN 10.2 g/dL (12.0-18.0); BG VENT MODE ROOM AIR
[2022-05-16] MEDS ORDERED: LOSA25TA26 MT (16:56)
[2022-05-16] MEDS ORDERED: TAMS-11 MT (16:56)
[2022-05-16] MEDS ORDERED: OMEPRAZOLE 20MG CAPSULE EXTENDED RELEASE PO SCH (17:00)
[2022-05-16] MEDS ORDERED: ROPINIROLE HCL 1MG TABLET PO SCH (17:00)
[2022-05-16] MEDS ORDERED: ASPI-1406 PO (17:01)
[2022-05-16] MEDS: METFORMIN HCL 500MG TABLET PO SCH (17:20)
[2022-05-16] MEDS ORDERED: NON FORMULARY PATIENT HOME MED XX SCH (17:30)
[2022-05-16 17:32] LABS: CLARITY URINE CLEAR (CLEAR); COLOR URINE YELLOW (YELLOW); KETONES URINE NEGATIVE (NEGATIVE); LEUKOCYTE ESTERASE URINE NEGATIVE (NEGATIVE); NITRITE URINE NEGATIVE (NEGATIVE); OCCULT BLOOD URINE NEGATIVE (NEGATIVE); PROTEIN URINE TRACE (NEGATIVE); SPECIFIC GRAVITY URINE 1.023 (1.005-1.030); UROBILINOGEN URINE 0.2 E.U./dL (0.2-1.0)
[2022-05-16 17:43] VITALS: BP 139/99
[2022-05-16] MEDS ORDERED: DEXTROSE 50% WATER 50ML SYRINGE IV PRN (17:45)
[2022-05-16] MEDS: INSULIN LISPRO 100 UNITS/ML SUBCUT SCH ×2 (17:51→21:53)
[2022-05-16 20:00] VITALS: BP 137/87
[2022-05-16] MEDS ORDERED: NALOXONE HCL 0.4MG/ML VIAL IV PRN (20:15)
[2022-05-16] MEDS: AMLODIPINE 5MG TABLET PO SCH ×2 (21:00→22:54)
[2022-05-16] MEDS ORDERED: PREGABALIN 25MG CAPSULE PO SCH ×2 (21:00)
[2022-05-16] MEDS: LOSARTAN POTASSIUM 25 MG TABLET PO SCH (21:51)
[2022-05-16] MEDS: METHYLPREDNISOLONE SOD SUCC 40 MG/ML VIAL IV SCH (21:52)
[2022-05-16] MEDS: INSULIN GLARGINE 100 UNITS/ML SUBCUT SCH (21:53)
[2022-05-16] MEDS: ROPINIROLE 4 MG PO SCH (21:54)
[2022-05-16] MEDS: BLOOD SUGAR DIAGNOSTIC STRIP TEST SCH (21:54)
[2022-05-16] MEDS: IPRATROPIUM/ALBUTEROL 0.5-3(2.5)MG/3ML NEB HHN SCH (22:54)
[2022-05-16] MEDS ORDERED: NITROGLYCERIN 0.4MG TABLET SL SL NR (23:10)
[2022-05-16] MEDS: HYDROCODONE/ACETAMINOPHEN 5/325MG TABLET PO PRN (23:45)
[2022-05-17] VITALS: BP 144/77
[2022-05-17] MEDS: NITROGLYCERIN OINT 1GM/INCH UDPKT TD SCH ×4 (00:27→21:06)
[2022-05-17 04:00] VITALS: BP 143/83
[2022-05-17] MEDS: METHYLPREDNISOLONE SOD SUCC 40 MG/ML VIAL IV SCH ×3 (05:12→21:01)
[2022-05-17] MEDS: HYDROCODONE/ACETAMINOPHEN 5/325MG TABLET PO PRN ×2 (05:13→21:22)
[2022-05-17] MEDS: OMEPRAZOLE 20MG CAPSULE EXTENDED RELEASE PO SCH (06:43)
[2022-05-17] MEDS: BLOOD SUGAR DIAGNOSTIC STRIP TEST SCH ×4 (06:43→21:00)
[2022-05-17 06:56] LABS: HEMOGLOBIN. 8.9 g/dL (14.0-18.0); MEAN CORPUSCULAR HEMOGLOBIN 28.3 pg (28.0-32.0); MEAN CORPUSCULAR VOLUME 86.2 fL (80.0-94.0); MEAN PLATELET VOLUME 9.2 fl (7.4-10.4); PLATELET 89 x1000/uL (130-400); RED BLOOD CELL COUNT 3.13 mill/uL (4.7-6.1); RED CELL DISTRIBUTION WIDTH 17.1 % (11.6-14.6)
[2022-05-17 07:00] VITALS: BP 137/75
[2022-05-17 07:40] LABS: CHLORIDE 98 mEq/L (98-107)
[2022-05-17] MEDS ORDERED: PREGABALIN 25MG CAPSULE PO SCH (09:00)
[2022-05-17] MEDS ORDERED: LOSARTAN POTASSIUM 25 MG TABLET PO SCH (09:00)
[2022-05-17] MEDS ORDERED: *PATIENT'S OWN MEDICATION STORAGE XX SCH (10:00)
[2022-05-17] MEDS: IPRATROPIUM/ALBUTEROL 0.5-3(2.5)MG/3ML NEB HHN SCH ×3 (10:22→18:00)
[2022-05-17] MEDS: INSULIN LISPRO 100 UNITS/ML SUBCUT SCH ×7 (10:24→21:04)
[2022-05-17] MEDS: ASPIRIN 81MG EC TABLET PO SCH (10:25)
[2022-05-17] MEDS: INSULIN GLARGINE 100 UNITS/ML SUBCUT SCH ×2 (10:25→21:04)
[2022-05-17] MEDS: TAMSULOSIN HCL 0.4MG SR CAPSULE PO SCH (10:25)
[2022-05-17] MEDS: METFORMIN HCL 500MG TABLET PO SCH ×2 (10:26→18:39)
[2022-05-17] MEDS: LOSARTAN POTASSIUM 25 MG TABLET PO SCH (10:26)
[2022-05-17] MEDS: ROPINIROLE 4 MG PO SCH ×2 (10:27→20:50)
[2022-05-17] MEDS: ALLOPURINOL 300 MG TABLET PO SCH (10:27)
[2022-05-17] MEDS: SPIRONOLACTONE 25MG TABLET PO SCH (10:27)
[2022-05-17] MEDS: AMLODIPINE 5MG TABLET PO SCH ×2 (10:27→20:50)
[2022-05-17] MEDS: PREGABALIN 225 MG PO SCH ×2 (10:28→20:50)
[2022-05-17] MEDS: ATORVASTATIN CALCIUM 20MG TABLET PO SCH (10:33)
[2022-05-17] MEDS ORDERED: FUROSEMIDE 40MG/4ML VIAL IVP SCH (11:30)
[2022-05-17 12:00] VITALS: BP 120/74
[2022-05-17 13:13] LABS: T4 FREE 0.85 ng/dL (0.76-1.46)
[2022-05-17] MEDS: LEVOTHYROXINE SODIUM 125MCG TABLET PO SCH ×2 (13:13→16:45)
[2022-05-17] MEDS: BUDESONIDE 0.5MG/2ML NEB HHN SCH ×2 (14:03→21:00)
[2022-05-17 14:09] LABS: VITAMIN B12 SERUM 281 pg/mL (211-911)
[2022-05-17 14:15] LABS: FERRITIN 15 ng/mL (22-322)
[2022-05-17] MEDS: IRON SUCROSE COMPLEX 100 MG/5 ML ML IV SCH (15:39)
[2022-05-17] MEDS: GUAIFENESIN 600MG ER TABLET PO SCH ×2 (15:39→20:50)
[2022-05-17 16:00] VITALS: BP 132/74
[2022-05-17] MEDS ORDERED: ALBU6.7H3 INH (17:45)
[2022-05-17] MEDS ORDERED: MOME13HF2 INH (17:45)
[2022-05-17] MEDS: PSYLLIUM SEED PACKET PO SCH (18:39)
[2022-05-17] MEDS: DOCUSATE SODIUM 250MG CAPSULE PO SCH (18:39)
[2022-05-17] MEDS: IPRATROPIUM/ALBUTEROL 0.5-3(2.5)MG/3ML NEB HHN PRN (18:42)
[2022-05-17 20:00] VITALS: BP 143/78
[2022-05-18] VITALS: BP 113/77
[2022-05-18 04:00] VITALS: BP 145/78
[2022-05-18] MEDS: LEVOTHYROXINE SODIUM 125MCG TABLET PO SCH ×2 (06:35→08:32)
[2022-05-18] MEDS: BLOOD SUGAR DIAGNOSTIC STRIP TEST SCH ×4 (06:35→20:35)
[2022-05-18] MEDS: NITROGLYCERIN OINT 1GM/INCH UDPKT TD SCH ×3 (06:35→22:00)
[2022-05-18] MEDS: METHYLPREDNISOLONE SOD SUCC 40 MG/ML VIAL IV SCH ×3 (06:35→21:35)
[2022-05-18] MEDS: OMEPRAZOLE 20MG CAPSULE EXTENDED RELEASE PO SCH (06:35)
[2022-05-18] MEDS: INSULIN LISPRO 100 UNITS/ML SUBCUT SCH ×7 (06:37→21:21)
[2022-05-18 07:00] VITALS: BP 147/74
[2022-05-18] MEDS: DOCUSATE SODIUM 250MG CAPSULE PO SCH ×2 (08:32→18:45)
[2022-05-18] MEDS: TAMSULOSIN HCL 0.4MG SR CAPSULE PO SCH (08:32)
[2022-05-18] MEDS: ALLOPURINOL 300 MG TABLET PO SCH (08:32)
[2022-05-18] MEDS: SPIRONOLACTONE 25MG TABLET PO SCH (08:32)
[2022-05-18] MEDS: AMLODIPINE 5MG TABLET PO SCH ×2 (08:32→21:20)
[2022-05-18] MEDS: ATORVASTATIN CALCIUM 20MG TABLET PO SCH (08:32)
[2022-05-18] MEDS: LOSARTAN POTASSIUM 25 MG TABLET PO SCH (08:32)
[2022-05-18] MEDS: ASPIRIN 81MG EC TABLET PO SCH (08:32)
[2022-05-18] MEDS: INSULIN GLARGINE 100 UNITS/ML SUBCUT SCH ×2 (08:33→21:38)
[2022-05-18] MEDS: GUAIFENESIN 600MG ER TABLET PO SCH ×2 (08:33→21:17)
[2022-05-18] MEDS: METFORMIN HCL 500MG TABLET PO SCH ×2 (08:33→18:45)
[2022-05-18] MEDS: PSYLLIUM SEED PACKET PO SCH ×2 (08:34→18:45)
[2022-05-18] MEDS: ROPINIROLE 4 MG PO SCH ×2 (08:35→21:22)
[2022-05-18 09:08] LABS: PLATELET ESTIMATE DECREASED
[2022-05-18] MEDS: BUDESONIDE 0.5MG/2ML NEB HHN SCH ×2 (09:10→20:50)
[2022-05-18] MEDS: IPRATROPIUM/ALBUTEROL 0.5-3(2.5)MG/3ML NEB HHN SCH ×4 (09:10→20:50)
[2022-05-18] MEDS: PREGABALIN 225 MG PO SCH ×2 (09:17→21:38)
[2022-05-18] MEDS ORDERED: FUROSEMIDE 40MG/4ML VIAL IVP NR (10:00)
[2022-05-18 12:00] VITALS: BP 141/60
[2022-05-18] MEDS: IRON SUCROSE COMPLEX 100 MG/5 ML ML IV SCH (15:12)
[2022-05-18 15:40] LABS: HEMATOCRIT. 30.3 % (42.0-52.0); HEMOGLOBIN. 9.6 g/dL (14.0-18.0); MEAN CORPUSCULAR HEMOGLOBIN 27.9 pg (28.0-32.0); MEAN CORPUSCULAR VOLUME 88.4 fL (80.0-94.0); MEAN PLATELET VOLUME 8.9 fl (7.4-10.4); PLATELET 98 x1000/uL (130-400); RED BLOOD CELL COUNT 3.42 mill/uL (4.7-6.1); RED CELL DISTRIBUTION WIDTH 17.2 % (11.6-14.6)
[2022-05-18 15:54] LABS: CHLORIDE 100 mEq/L (98-107)
[2022-05-18 16:00] VITALS: BP 152/84
[2022-05-18 16:19] LABS: HEPATITIS B SURFACE ANTIGEN NEGATIVE
[2022-05-18] MEDS: SUCRALFATE 1 G/10 ML UDC PO SCH ×2 (18:45→21:20)
[2022-05-18 20:11] VITALS: BP 137/77
[2022-05-18 20:13] LABS: PHOSPHORUS 3.1 mg/dL (2.5-4.9)
[2022-05-18 21:35] LABS: PLATELET ESTIMATE DECREASED
[2022-05-19] VITALS (7 sets, daily range): BP systolic 126–155; BP diastolic 56–97
[2022-05-19] MEDS: IPRATROPIUM/ALBUTEROL 0.5-3(2.5)MG/3ML NEB HHN SCH ×4 (02:05→21:01)
[2022-05-19] MEDS: NITROGLYCERIN OINT 1GM/INCH UDPKT TD SCH ×3 (06:00→22:00)
[2022-05-19] MEDS: HYDROCODONE/ACETAMINOPHEN 5/325MG TABLET PO PRN ×2 (06:32→12:20)
[2022-05-19] MEDS: BLOOD SUGAR DIAGNOSTIC STRIP TEST SCH ×4 (06:50→20:53)
[2022-05-19] MEDS: SUCRALFATE 1 G/10 ML UDC PO SCH ×4 (06:53→21:12)
[2022-05-19] MEDS: LEVOTHYROXINE SODIUM 125MCG TABLET PO SCH (06:53)
[2022-05-19] MEDS: METHYLPREDNISOLONE SOD SUCC 40 MG/ML VIAL IV SCH ×3 (06:53→21:12)
[2022-05-19 06:56] LABS: HEMATOCRIT. 31.7 % (42.0-52.0); HEMOGLOBIN. 10.3 g/dL (14.0-18.0); MEAN CORPUSCULAR HEMOGLOBIN 28.2 pg (28.0-32.0); MEAN CORPUSCULAR VOLUME 86.9 fL (80.0-94.0); MEAN PLATELET VOLUME 9.1 fl (7.4-10.4); PLATELET 106 x1000/uL (130-400); RED BLOOD CELL COUNT 3.64 mill/uL (4.7-6.1); RED CELL DISTRIBUTION WIDTH 17.2 % (11.6-14.6)
[2022-05-19 07:11] LABS: CHLORIDE 97 mEq/L (98-107)
[2022-05-19] MEDS: OMEPRAZOLE 20MG CAPSULE EXTENDED RELEASE PO SCH (07:15)
[2022-05-19] MEDS: INSULIN LISPRO 100 UNITS/ML SUBCUT SCH ×7 (07:17→21:14)
[2022-05-19] MEDS: BUDESONIDE 0.5MG/2ML NEB HHN SCH ×2 (07:50→21:01)
[2022-05-19] MEDS: LOSARTAN POTASSIUM 25 MG TABLET PO SCH (09:01)
[2022-05-19] MEDS: GUAIFENESIN 600MG ER TABLET PO SCH ×2 (09:01→21:12)
[2022-05-19] MEDS: ALLOPURINOL 300 MG TABLET PO SCH (09:02)
[2022-05-19] MEDS: METFORMIN HCL 500MG TABLET PO SCH ×2 (09:02→17:04)
[2022-05-19] MEDS: AMLODIPINE 5MG TABLET PO SCH ×2 (09:04→21:13)
[2022-05-19] MEDS: TAMSULOSIN HCL 0.4MG SR CAPSULE PO SCH (09:04)
[2022-05-19] MEDS: PSYLLIUM SEED PACKET PO SCH ×2 (09:05→17:04)
[2022-05-19] MEDS: SPIRONOLACTONE 25MG TABLET PO SCH (09:05)
[2022-05-19] MEDS: ATORVASTATIN CALCIUM 20MG TABLET PO SCH (09:05)
[2022-05-19] MEDS: DOCUSATE SODIUM 250MG CAPSULE PO SCH ×2 (09:17→17:04)
[2022-05-19] MEDS: ROPINIROLE 4 MG PO SCH ×2 (09:29→21:12)
[2022-05-19] MEDS: INSULIN GLARGINE 100 UNITS/ML SUBCUT SCH ×2 (09:43→21:15)
[2022-05-19] MEDS: PREGABALIN 225 MG PO SCH ×2 (09:58→21:13)
[2022-05-19] MEDS ORDERED: FUROSEMIDE 20MG/2ML VIAL IVP NR (10:00)
[2022-05-19] MEDS ORDERED: NITROGLYCERIN 0.4MG TABLET SL SL ONE (12:07)
[2022-05-19] MEDS: IRON SUCROSE COMPLEX 100 MG/5 ML ML IV SCH (14:10)
[2022-05-19 17:55] LABS: PLATELET ESTIMATE DECREASED
[2022-05-20 00:02] VITALS: BP 153/76
[2022-05-20] MEDS: IPRATROPIUM/ALBUTEROL 0.5-3(2.5)MG/3ML NEB HHN PRN ×2 (00:45→17:09)
[2022-05-20] MEDS: HYDROCODONE/ACETAMINOPHEN 5/325MG TABLET PO PRN (00:53)
[2022-05-20] MEDS: NITROGLYCERIN OINT 1GM/INCH UDPKT TD SCH ×2 (00:54→06:00)
[2022-05-20] MEDS: IPRATROPIUM/ALBUTEROL 0.5-3(2.5)MG/3ML NEB HHN SCH ×5 (02:41→21:06)
[2022-05-20 04:01] VITALS: BP 148/74
[2022-05-20] MEDS: SODIUM CHLORIDE 0.45% 1,000 ML IV SCH ×2 (04:37→17:12)
[2022-05-20] MEDS: METHYLPREDNISOLONE SOD SUCC 40 MG/ML VIAL IV SCH ×3 (05:58→22:48)
[2022-05-20] MEDS: BLOOD SUGAR DIAGNOSTIC STRIP TEST SCH ×4 (06:47→21:15)
[2022-05-20] MEDS: OMEPRAZOLE 20MG CAPSULE EXTENDED RELEASE PO SCH (06:50)
[2022-05-20] MEDS: SUCRALFATE 1 G/10 ML UDC PO SCH ×4 (06:50→21:49)
[2022-05-20] MEDS: INSULIN LISPRO 100 UNITS/ML SUBCUT SCH ×8 (06:50→22:01)
[2022-05-20] MEDS: LEVOTHYROXINE SODIUM 125MCG TABLET PO SCH (06:50)
[2022-05-20 07:17] LABS: HEMATOCRIT. 30.7 % (42.0-52.0); HEMOGLOBIN. 9.8 g/dL (14.0-18.0); MEAN CORPUSCULAR HEMOGLOBIN 27.7 pg (28.0-32.0); MEAN CORPUSCULAR VOLUME 86.8 fL (80.0-94.0); MEAN PLATELET VOLUME 8.8 fl (7.4-10.4); PLATELET 92 x1000/uL (130-400); RED BLOOD CELL COUNT 3.53 mill/uL (4.7-6.1); RED CELL DISTRIBUTION WIDTH 17.3 % (11.6-14.6)
[2022-05-20 07:47] LABS: CHLORIDE 99 mEq/L (98-107)
[2022-05-20 08:24] VITALS: BP 149/81
[2022-05-20] MEDS: BUDESONIDE 0.5MG/2ML NEB HHN SCH ×2 (09:00→10:54)
[2022-05-20 09:01] LABS: NUCLEATED RED BLOOD CELLS 1 /100 WBC; PLATELET ESTIMATE DECREASED
[2022-05-20] MEDS ORDERED: IODIXANOL 320MG/ML 100 ML BOTTLE IV ONE (09:02)
[2022-05-20] MEDS ORDERED: HEPARIN 1000 UNITS/ML 10ML ONE (09:02)
[2022-05-20] MEDS ORDERED: LIDOCAINE HCL/PF 2% 20MG/ML 5 ML/VIAL ONE (09:02)
[2022-05-20] MEDS ORDERED: ASPIRIN/SOD BICARB/CITRIC ACID 324MG TAB EFF ONE (09:02)
[2022-05-20] MEDS ORDERED: LIDOCAINE HCL 1% 20ML VIAL (Pyxis) INJ ONE (09:15)
[2022-05-20] MEDS ORDERED: MIDAZOLAM HCL 2 MG/2 ML VIAL ONE (09:32)
[2022-05-20] MEDS ORDERED: FENTANYL CITRATE/PF 50MCG/ML 2ML VIAL ONE (09:32)
[2022-05-20] MEDS ORDERED: SODIUM CHLORIDE 0.45% 300 ML IV ONE (10:30)
[2022-05-20] MEDS ORDERED: ACETAMINOPHEN 325MG TABLET PO PRN (10:30)
[2022-05-20] MEDS ORDERED: ONDANSETRON HCL 4MG/2ML INJ IV PRN (10:30)
[2022-05-20] MEDS ORDERED: ATROPINE SULFATE 1MG/10ML SYR IV PRN (10:30)
[2022-05-20] MEDS: TAMSULOSIN HCL 0.4MG SR CAPSULE PO SCH (12:07)
[2022-05-20] MEDS: METFORMIN HCL 500MG TABLET PO SCH ×2 (12:07→17:20)
[2022-05-20] MEDS: LOSARTAN POTASSIUM 25 MG TABLET PO SCH (12:08)
[2022-05-20] MEDS: ATORVASTATIN CALCIUM 20MG TABLET PO SCH (12:08)
[2022-05-20] MEDS: GUAIFENESIN 600MG ER TABLET PO SCH ×2 (12:08→21:51)
[2022-05-20] MEDS: AMLODIPINE 5MG TABLET PO SCH ×2 (12:08→21:50)
[2022-05-20] MEDS: ALLOPURINOL 300 MG TABLET PO SCH (12:08)
[2022-05-20] MEDS: INSULIN GLARGINE 100 UNITS/ML SUBCUT SCH ×2 (12:10→22:48)
[2022-05-20] MEDS: DOCUSATE SODIUM 250MG CAPSULE PO SCH ×2 (12:11→17:20)
[2022-05-20] MEDS: PSYLLIUM SEED PACKET PO SCH ×2 (12:15→17:20)
[2022-05-20] MEDS: PREGABALIN 225 MG PO SCH ×2 (13:07→22:30)
[2022-05-20] MEDS: FARXIGA 10MG TABLET XX SCH (13:08)
[2022-05-20] MEDS: ROPINIROLE 4 MG PO SCH ×2 (13:09→21:51)
[2022-05-20] MEDS ORDERED: NICARDIPINE 100MCG/ML 10ML VIAL (CATH LAB) IV ONE (13:39)
[2022-05-20] MEDS ORDERED: NITROGLYCERIN 50MCG/ML 10ML VIAL (CATH LAB) IV ONE (13:39)
[2022-05-20 14:23] LABS: BG BASE EXCESS 4.8 mmol/L (-2.0-2.0); BG CARBOXYHEMOGLOBIN 0.5 % (0.5-1.5); BG DEOXYHEMOGLOBIN 6.3 % (0.0-5.0); BG FRACTION INSPIRED OXYGEN 21; BG HCO3 ACT 29.3 mmol/L (22.0-26.0); BG METHEMOGLOBIN 0.2 % (0.0-1.5); BG OXYGEN SATURATION 93.7 % (92.0-98.5); BG PCO2 43.1 mmHg (35.0-45.0); BG PO2 71.2 mmHg (75.0-100.0); BG SAMPLE SITE LEFT RADIAL; BG VENT MODE ROOM AIR
[2022-05-20 16:00] VITALS: BP 151/81
[2022-05-20 20:07] VITALS: BP 142/108
[2022-05-20] MEDS: SILDENAFIL CITRATE 20MG TABLET PO SCH (22:49)
[2022-05-21 00:03] VITALS: BP 137/68
[2022-05-21] MEDS: IPRATROPIUM/ALBUTEROL 0.5-3(2.5)MG/3ML NEB HHN SCH ×4 (02:08→14:45)
[2022-05-21] MEDS: MORPHINE SULFATE 2 MG/ML CPJ (NOT FOR IM USE) IV PRN (02:49)
[2022-05-21 04:34] VITALS: BP 145/79
[2022-05-21] MEDS: SILDENAFIL CITRATE 20MG TABLET PO SCH ×3 (06:11→21:50)
[2022-05-21] MEDS: METHYLPREDNISOLONE SOD SUCC 40 MG/ML VIAL IV SCH ×3 (06:11→21:51)
[2022-05-21] MEDS: BLOOD SUGAR DIAGNOSTIC STRIP TEST SCH ×4 (06:44→21:53)
[2022-05-21] MEDS: OMEPRAZOLE 20MG CAPSULE EXTENDED RELEASE PO SCH (06:59)
[2022-05-21] MEDS: INSULIN LISPRO 100 UNITS/ML SUBCUT SCH ×7 (06:59→21:52)
[2022-05-21] MEDS: SUCRALFATE 1 G/10 ML UDC PO SCH ×4 (06:59→21:51)
[2022-05-21] MEDS: LEVOTHYROXINE SODIUM 125MCG TABLET PO SCH (07:00)
[2022-05-21 07:36] LABS: HEMATOCRIT. 31.5 % (42.0-52.0); HEMOGLOBIN. 10.1 g/dL (14.0-18.0); PLATELET 82 x1000/uL (130-400); RED BLOOD CELL COUNT 3.62 mill/uL (4.7-6.1); RED CELL DISTRIBUTION WIDTH 17.5 % (11.6-14.6)
[2022-05-21] MEDS: SODIUM CHLORIDE 0.45% 1,000 ML IV SCH ×2 (07:40→21:00)
[2022-05-21 08:00] VITALS: BP 126/79
[2022-05-21 08:38] LABS: CHLORIDE 100 mEq/L (98-107)
[2022-05-21] MEDS: TAMSULOSIN HCL 0.4MG SR CAPSULE PO SCH (09:08)
[2022-05-21] MEDS: DOCUSATE SODIUM 250MG CAPSULE PO SCH ×2 (09:08→17:34)
[2022-05-21] MEDS: AMLODIPINE 5MG TABLET PO SCH ×2 (09:09→21:51)
[2022-05-21] MEDS: ROPINIROLE 4 MG PO SCH ×2 (09:09→21:51)
[2022-05-21] MEDS: PSYLLIUM SEED PACKET PO SCH ×2 (09:09→17:33)
[2022-05-21] MEDS: LOSARTAN POTASSIUM 25 MG TABLET PO SCH (09:09)
[2022-05-21] MEDS: ALLOPURINOL 300 MG TABLET PO SCH (09:09)
[2022-05-21] MEDS: FARXIGA 10MG TABLET XX SCH (09:10)
[2022-05-21] MEDS: GUAIFENESIN 600MG ER TABLET PO SCH ×2 (09:10→21:50)
[2022-05-21] MEDS: INSULIN GLARGINE 100 UNITS/ML SUBCUT SCH ×3 (09:14→21:53)
[2022-05-21] MEDS: ATORVASTATIN CALCIUM 20MG TABLET PO SCH (09:18)
[2022-05-21 09:30] LABS: PLATELET ESTIMATE DECREASED
[2022-05-21] MEDS: PREGABALIN 225 MG PO SCH ×2 (09:34→21:00)
[2022-05-21 12:01] VITALS: BP 113/55
[2022-05-21] MEDS ORDERED: MAGNESIUM 2 G PREMIX 50 ML IV NR (14:00)
[2022-05-21] MEDS ORDERED: REV20 PO (15:34)
[2022-05-21 16:09] VITALS: BP 128/74
[2022-05-21 20:00] VITALS: BP 110/48
[2022-05-22] VITALS: BP 131/82
[2022-05-22] MEDS: IPRATROPIUM/ALBUTEROL 0.5-3(2.5)MG/3ML NEB HHN PRN ×3 (01:46→09:55)
[2022-05-22 04:00] VITALS: BP 120/68
[2022-05-22] MEDS: MORPHINE SULFATE 2 MG/ML CPJ (NOT FOR IM USE) IV PRN (05:38)
[2022-05-22] MEDS: SILDENAFIL CITRATE 20MG TABLET PO SCH (07:07)
[2022-05-22] MEDS: OMEPRAZOLE 20MG CAPSULE EXTENDED RELEASE PO SCH (07:08)
[2022-05-22] MEDS: BLOOD SUGAR DIAGNOSTIC STRIP TEST SCH ×2 (07:08→11:50)
[2022-05-22] MEDS: LEVOTHYROXINE SODIUM 125MCG TABLET PO SCH (07:08)
[2022-05-22] MEDS: SUCRALFATE 1 G/10 ML UDC PO SCH ×2 (07:08→13:03)
[2022-05-22] MEDS: METHYLPREDNISOLONE SOD SUCC 40 MG/ML VIAL IV SCH (07:08)
[2022-05-22 07:12] LABS: *CREATININE RANDOM URINE 50.2 mg/dL (Not Estab.); MICROALBUMIN RANDOM URINE 207.6 ug/mL (Not Estab.)
[2022-05-22 07:41] LABS: HEMATOCRIT. 34.3 % (42.0-52.0); HEMOGLOBIN. 10.9 g/dL (14.0-18.0); MEAN CORPUSCULAR HEMOGLOBIN 28.1 pg (28.0-32.0); MEAN PLATELET VOLUME 8.9 fl (7.4-10.4); PLATELET 83 x1000/uL (130-400); RED CELL DISTRIBUTION WIDTH 17.6 % (11.6-14.6)
[2022-05-22 07:50] LABS: CHLORIDE 102 mEq/L (98-107)
[2022-05-22 08:00] VITALS: BP 116/73
[2022-05-22 08:25] LABS: PLATELET ESTIMATE DECREASED
[2022-05-22] MEDS: PSYLLIUM SEED PACKET PO SCH (08:49)
[2022-05-22] MEDS: DOCUSATE SODIUM 250MG CAPSULE PO SCH (08:49)
[2022-05-22] MEDS: LOSARTAN POTASSIUM 25 MG TABLET PO SCH (08:49)
[2022-05-22] MEDS: TAMSULOSIN HCL 0.4MG SR CAPSULE PO SCH (08:49)
[2022-05-22] MEDS: ALLOPURINOL 300 MG TABLET PO SCH (08:49)
[2022-05-22] MEDS: AMLODIPINE 5MG TABLET PO SCH (08:49)
[2022-05-22] MEDS: ROPINIROLE 4 MG PO SCH (08:50)
[2022-05-22] MEDS: FARXIGA 10MG TABLET XX SCH (08:50)
[2022-05-22] MEDS: INSULIN LISPRO 100 UNITS/ML SUBCUT SCH ×4 (08:51→12:20)
[2022-05-22] MEDS: GUAIFENESIN 600MG ER TABLET PO SCH (08:54)
[2022-05-22] MEDS: ATORVASTATIN CALCIUM 20MG TABLET PO SCH (08:54)
[2022-05-22] MEDS: SODIUM CHLORIDE 0.45% 1,000 ML IV SCH (10:20)
[2022-05-22] MEDS: PREGABALIN 225 MG PO SCH (11:03)
[2022-05-22] MEDS: INSULIN GLARGINE 100 UNITS/ML SUBCUT SCH (11:04)
[2022-05-22] MEDS ORDERED: LEVO125T PO (11:40)
[2022-05-22] MEDS ORDERED: PREG225C MT (11:40)
[2022-05-22 12:00] VITALS: BP 123/84
[2022-05-22 13:43] VITALS: BP 123/84
[2022-05-22] MEDS ORDERED: INSULIN LISPRO 100 UNITS/ML SUBCUT SCH ×2 (16:50→17:20)
[2022-05-23] MEDS ORDERED: AZIT500T8 MT (10:00)
== END 2022-05-22 15:00 | disposition home or self-care (01) | DRG 286 ==
LOC: ER 10:09 → 3WST 13:04
PROVIDERS: ADMIT Family Medicine Adult Medicine; ATTEND Family Medicine Adult Medicine
PROC: 5A09357 Assistance with Respiratory Ventilation, Less than 24 Consecutive Hours, Continuous Positive Airway Pressure (ICD-10-PCS; 2022-05-17)
PROC: B2111ZZ Fluoroscopy of Multiple Coronary Arteries using Low Osmolar Contrast (ICD-10-PCS; principal; 2022-05-20)
PROC: B2151ZZ Fluoroscopy of Left Heart using Low Osmolar Contrast (ICD-10-PCS; 2022-05-20)
PROC: 4A023N8 Measurement of Cardiac Sampling and Pressure, Bilateral, Percutaneous Approach (ICD-10-PCS; 2022-05-20)
PROC: 5A09357 Assistance with Respiratory Ventilation, Less than 24 Consecutive Hours, Continuous Positive Airway Pressure (ICD-10-PCS; 2022-05-21)
DX: I11.0 Hypertensive heart disease with heart failure (principal); I50.21 Acute systolic (congestive) heart failure; J96.00 Acute respiratory failure, unspecified whether with hypoxia or hypercapnia; D61.818 Other pancytopenia; E44.1 Mild protein-calorie malnutrition; M87.9 Osteonecrosis, unspecified; K76.6 Portal hypertension; D50.9 Iron deficiency anemia, unspecified; D63.8 Anemia in other chronic diseases classified elsewhere; E03.9 Hypothyroidism, unspecified; E11.42 Type 2 diabetes mellitus with diabetic polyneuropathy; S14.109A Unspecified injury at unspecified level of cervical spinal cord, initial encounter; M48.061 Spinal stenosis, lumbar region without neurogenic claudication; N40.0 Benign prostatic hyperplasia without lower urinary tract symptoms; M48.02 Spinal stenosis, cervical region; K74.60 Unspecified cirrhosis of liver; K21.9 Gastro-esophageal reflux disease without esophagitis; J98.6 Disorders of diaphragm; I44.7 Left bundle-branch block, unspecified; I25.10 Atherosclerotic heart disease of native coronary artery without angina pectoris; E78.00 Pure hypercholesterolemia, unspecified; G47.33 Obstructive sleep apnea (adult) (pediatric); G89.4 Chronic pain syndrome; G25.81 Restless legs syndrome; G20 Parkinson's disease; Z96.642 Presence of left artificial hip joint; K42.9 Umbilical hernia without obstruction or gangrene; M10.9 Gout, unspecified; E55.9 Vitamin D deficiency, unspecified; E11.65 Type 2 diabetes mellitus with hyperglycemia; E66.01 Morbid (severe) obesity due to excess calories; E88.81 Metabolic syndrome and other insulin resistance; I27.20 Pulmonary hypertension, unspecified; X58.XXXA Exposure to other specified factors, initial encounter; M47.819 Spondylosis without myelopathy or radiculopathy, site unspecified; M75.100 Unspecified rotator cuff tear or rupture of unspecified shoulder, not specified as traumatic; R32 Unspecified urinary incontinence; Z79.899 Other long term (current) drug therapy; Z79.84 Long term (current) use of oral hypoglycemic drugs; Z98.1 Arthrodesis status; Z68.38 Body mass index [BMI] 38.0-38.9, adult; Z95.1 Presence of aortocoronary bypass graft; Z88.1 Allergy status to other antibiotic agents; Z88.8 Allergy status to other drugs, medicaments and biological substances; Z79.4 Long term (current) use of insulin; Z91.199 Patient's noncompliance with other medical treatment and regimen due to unspecified reason; Z79.51 Long term (current) use of inhaled steroids; Z82.49 Family history of ischemic heart disease and other diseases of the circulatory system; Y93.89 Activity, other specified; Y92.89 Other specified places as the place of occurrence of the external cause; Y99.8 Other external cause status
CPT/HCPCS: 36415; 36600; 70551; 71045; 71275; 72141; 80048; 80053; 80076; 81003; 82043; 82105; 82270; 82375; 82570; 82607; 82728; 82805; 82962; 83036; 83540; 83550; 83605; 83735; 83880; 84100; 84145; 84439; 84443; 84481; 84484; 85025; 85044; 85379; 86301; 86705; 86709; 86803; 87340; 87426; 87804; 93005; 93225; 93226; 93306; 93460; 93970; 94618; 94640; 94660; 97162; 97166; 99285; C1760; C1769; C1887; C1893; C9803; J1644; J1815; J1940; J2250; J2270; J2920; J2930; J3010; J3475; J3490; J7626; Q9967

== ENCOUNTER → 2022-05-26 | Outpatient (CLI) | payer BC ==
[~2022-05-26] MED LIST changes: +ALBU6.7H3 INH; +ASPI-1406 PO; +AZIT500T8 MT; +LOSA25TA26 MT; +MOME13HF2 INH; -NAPR-681 MT; -PREG100C PO; -PREG150C PO; +PREG225C MT; +REV20 PO; +TAMS-11 MT
[2022-05-26 12:28] LABS: BASOPHILS % 0.2 % (0.0-2.0); EOSINOPHILS % 0.9 % (0.0-5.0); HEMATOCRIT. 35.3 % (42.0-52.0); HEMOGLOBIN. 11.3 g/dL (14.0-18.0); LYMPHOCYTES % 10.3 % (20.0-50.0); MEAN CORPUSCULAR VOLUME 87.9 fL (80.0-94.0); MEAN PLATELET VOLUME 9.3 fl (7.4-10.4); MONOCYTES % 6.7 % (2.0-8.0); NEUTROPHILS % 81.9 % (40.0-76.0); PLATELET 78 x1000/uL (130-400); RED BLOOD CELL COUNT 4.02 mill/uL (4.7-6.1); RED CELL DISTRIBUTION WIDTH 18.6 % (11.6-14.6)
[2022-05-26 12:42] LABS: CLARITY URINE CLOUDY (CLEAR); COLOR URINE YELLOW (YELLOW); KETONES URINE NEGATIVE (NEGATIVE); LEUKOCYTE ESTERASE URINE 2+ (NEGATIVE); NITRITE URINE POSITIVE (NEGATIVE); OCCULT BLOOD URINE 1+ (NEGATIVE); PH URINE 7.5 (4.5-8.0); PROTEIN URINE 1+ (NEGATIVE); SPECIFIC GRAVITY URINE 1.028 (1.005-1.030)
[2022-05-26 16:06] LABS: CHLORIDE 107 mEq/L (98-107)
[2022-05-26 16:28] LABS: HDL CHOLESTEROL 62 mg/dL (40-59); LDL CHOLESTEROL 72 mg/dL (5-100); T4 FREE 1.16 ng/dL (0.76-1.46); TOTAL IRON BINDING CAPACITY 348 ug/dL (250-450)
[2022-05-26 16:39] LABS: FOLIC ACID (FOLATE) SERUM 16.9 ng/mL (>5.38)
== END | disposition home or self-care (01) ==
LOC: LAB 11:33
PROVIDERS: ATTEND Family Medicine Adult Medicine
DX: I10 Essential (primary) hypertension (principal); E03.9 Hypothyroidism, unspecified; E11.8 Type 2 diabetes mellitus with unspecified complications; D64.9 Anemia, unspecified
CPT/HCPCS: 36415; 80053; 80061; 81003; 82105; 82306; 82607; 82728; 82746; 83036; 83540; 83550; 84402; 84403; 84439; 84443; 84479; 84481; 85025; 85651

== ENCOUNTER → 2022-06-10 | Outpatient (CLI) | payer BC ==
[~2022-06-10] MED LIST changes: +MOME13HF12 INH; -MOME13HF2 INH
[2022-06-10 15:33] LABS: CHLORIDE 103 mEq/L (98-107)
[2022-06-10 15:56] LABS: CLARITY URINE CLEAR (CLEAR); COLOR URINE YELLOW (YELLOW); KETONES URINE NEGATIVE (NEGATIVE); LEUKOCYTE ESTERASE URINE NEGATIVE (NEGATIVE); NITRITE URINE NEGATIVE (NEGATIVE); OCCULT BLOOD URINE NEGATIVE (NEGATIVE); PH URINE 5.5 (4.5-8.0); PROTEIN URINE NEGATIVE (NEGATIVE); SPECIFIC GRAVITY URINE 1.036 (1.005-1.030); UROBILINOGEN URINE 0.2 E.U./dL (0.2-1.0)
[2022-06-12 09:10] LABS: % FREE PSA 32.4 % (.); FOLICLE STIMULATING HORMONE 16.6 mIU/mL (1.5-12.4); LUTEINIZING HORMONE 13.5 mIU/mL (1.7-8.6); PROSTATE SPECIFIC AG TOTAL 2.1 ng/mL (0.0-4.0); PSA FREE 0.68 ng/mL
[2022-06-12 13:07] LABS: *CREATININE RANDOM URINE 49.9 mg/dL (Not Estab.); MICROALBUMIN RANDOM URINE 18.4 ug/mL (Not Estab.)
== END | disposition home or self-care (01) ==
LOC: LAB 13:52
PROVIDERS: ATTEND Internal Medicine Endocrinology, Diabetes & Metabolism
DX: I10 Essential (primary) hypertension (principal); E11.9 Type 2 diabetes mellitus without complications; N39.0 Urinary tract infection, site not specified
CPT/HCPCS: 36415; 80048; 81003; 82043; 82570; 83001; 83002; 84153; 84154; 84402; 84403; G0103

== ENCOUNTER → 2023-01-05 | Outpatient (CLI) | payer BC ==
[~2023-01-05] MED LIST changes: +ROPI3TAB21 PO; -ROPI3TAB5 PO
[2023-01-05 10:53] LABS: BASOPHILS % 0.3 % (0.0-2.0); EOSINOPHILS % 2.4 % (0.0-5.0); HEMATOCRIT. 28.3 % (42.0-52.0); HEMOGLOBIN. 8.8 g/dL (14.0-18.0); LYMPHOCYTES % 15.4 % (20.0-50.0); MEAN CORPUSCULAR HEMOGLOBIN 25.2 pg (28.0-32.0); MEAN CORPUSCULAR HGB CONC 31.2 g/dL (31.0-37.0); MEAN CORPUSCULAR VOLUME 80.8 fL (80.0-94.0); MEAN PLATELET VOLUME 8.3 fl (7.4-10.4); NEUTROPHILS % 71.9 % (40.0-76.0); PLATELET 84 x1000/uL (130-400); RED CELL DISTRIBUTION WIDTH 17.4 % (11.6-14.6)
[2023-01-05 12:26] LABS: CHLORIDE 100 mEq/L (98-107); INDEX HEMOLYSI 1 (1-3); INDEX ICTERIC 1 (1-4); INDEX LIPEMIC 1 (1-3); POTASSIUM 4.2 mEq/L (3.5-5.1); SODIUM 132 mEq/L (136-145)
[2023-01-05 12:41] LABS: ALANINE AMINOTRANSFERASE 36 IU/L (13-61); ALBUMIN 3.5 g/dL (3.4-5.0); ASPARTATE AMINOTRANSFERASE 32 IU/L (15-37); BILIRUBIN TOTAL 0.7 mg/dL (0.1-1.0); CALCIUM 8.8 mg/dL (8.5-10.1); CARBON DIOXIDE 25 mEq/L (21-32); CHOLESTEROL 133 mg/dL (<200); CREATININE 0.9 mg/dL (0.6-1.3); HDL CHOLESTEROL 61 mg/dL (40-59); LDL CHOLESTEROL 57 mg/dL (5-100); NT PRO B-TYPE NATRIURETIC PEP 140 pg/mL (5-125); PROTEIN TOTAL 8.2 g/dL (6.0-8.3); T4 FREE 1.21 ng/dL (0.76-1.46); TRIGLYCERIDE 116 mg/dL (0-150); UREA NITROGEN BLOOD 19 mg/dL (7-21)
[2023-01-05 15:43] LABS: GLUCOSE 405 mg/dL (70-105)
== END | disposition home or self-care (01) ==
LOC: LAB 10:16
PROVIDERS: ATTEND Specialist
DX: I11.9 Hypertensive heart disease without heart failure (principal); E78.2 Mixed hyperlipidemia; R10.9 Unspecified abdominal pain
CPT/HCPCS: 36415; 80053; 80061; 83036; 83880; 84439; 84443; 84481; 85025

== ENCOUNTER → 2023-02-07 | Outpatient (CLI) | payer BC ==
[~2023-02-07] MED LIST changes: +GADOTERATE MEGLUMINE 5 MMOL/10 ML VIAL IV ONE
== END | disposition home or self-care (01) ==
LOC: MRI 10:21
PROVIDERS: ATTEND Internal Medicine Gastroenterology
DX: R16.2 Hepatomegaly with splenomegaly, not elsewhere classified (principal); N28.1 Cyst of kidney, acquired; K86.9 Disease of pancreas, unspecified
CPT/HCPCS: 74183; A9577

== ENCOUNTER → 2023-03-04 | Outpatient (CLI) | payer BC ==
[~2023-03-04] MED LIST changes: -GADOTERATE MEGLUMINE 5 MMOL/10 ML VIAL IV ONE
[2023-03-04 11:54] LABS: BASOPHILS % 0.5 % (0.0-2.0); DIFFERENTIAL COMMENT 0; HEMATOCRIT. 29.2 % (42.0-52.0); LYMPHOCYTES % 17.4 % (20.0-50.0); MEAN CORPUSCULAR HEMOGLOBIN 24.4 pg (28.0-32.0); MEAN CORPUSCULAR HGB CONC 30.7 g/dL (31.0-37.0); MEAN CORPUSCULAR VOLUME 79.4 fL (80.0-94.0); MEAN PLATELET VOLUME 8.1 fl (7.4-10.4); MONOCYTES % 8.6 % (2.0-8.0); NEUTROPHILS % 72.5 % (40.0-76.0); PLATELET 97 x1000/uL (130-400); RED BLOOD CELL COUNT 3.68 mill/uL (4.7-6.1); RED CELL DISTRIBUTION WIDTH 20.5 % (11.6-14.6); WHITE BLOOD COUNT 3.6 x1000/uL (4.5-11.0)
[2023-03-04 13:14] LABS: ALANINE AMINOTRANSFERASE 31 IU/L (10-49); ALBUMIN 3.9 g/dL (3.2-4.8); ASPARTATE AMINOTRANSFERASE 33 IU/L (<34); BILIRUBIN TOTAL 0.5 mg/dL (0.1-1.0); CALCIUM 9.3 mg/dL (8.7-10.4); CARBON DIOXIDE 29 mEq/L (21-32); CHLORIDE 103 mEq/L (98-107); CREATININE 0.8 mg/dL (0.6-1.3); POTASSIUM 4.2 mEq/L (3.5-5.1); PROTEIN TOTAL 7.9 g/dL (6.0-8.3); SODIUM 136 mEq/L (136-145); UREA NITROGEN BLOOD 15 mg/dL (9-23)
[2023-03-04 13:30] LABS: GLUCOSE 162 mg/dL (70-105)
== END | disposition home or self-care (01) ==
LOC: LAB 11:24
PROVIDERS: ATTEND Family Medicine Adult Medicine
DX: I10 Essential (primary) hypertension (principal); E07.9 Disorder of thyroid, unspecified; D50.9 Iron deficiency anemia, unspecified
CPT/HCPCS: 36415; 80053; 84443; 85025

== ENCOUNTER → 2023-08-04 | Outpatient (CLI) | payer BC ==
[2023-08-04 12:06] LABS: BASOPHILS % 0.4 % (0.0-2.0); EOSINOPHILS % 1.2 % (0.0-5.0); HEMATOCRIT. 36.2 % (42.0-52.0); LYMPHOCYTES % 18.9 % (20.0-50.0); MEAN CORPUSCULAR HEMOGLOBIN 30.5 pg (28.0-32.0); MEAN CORPUSCULAR HGB CONC 33.1 g/dL (31.0-37.0); MEAN CORPUSCULAR VOLUME 92.3 fL (80.0-94.0); MEAN PLATELET VOLUME 8.8 fl (7.4-10.4); MONOCYTES % 8.1 % (2.0-8.0); NEUTROPHILS % 71.4 % (40.0-76.0); PLATELET 82 x1000/uL (130-400); RED BLOOD CELL COUNT 3.93 mill/uL (4.7-6.1); RED CELL DISTRIBUTION WIDTH 15.5 % (11.6-14.6); WHITE BLOOD COUNT 3.5 x1000/uL (4.5-11.0)
[2023-08-04 12:29] LABS: CHLORIDE 105 mEq/L (98-107); SODIUM 139 mEq/L (136-145)
[2023-08-04 12:30] LABS: CARBON DIOXIDE 28 mEq/L (21-32)
[2023-08-04 12:35] LABS: CREATININE 0.9 mg/dL (0.6-1.3); GLUCOSE 87 mg/dL (70-105); TRIGLYCERIDE 67 mg/dL (0-150); UREA NITROGEN BLOOD 15 mg/dL (9-23)
[2023-08-04 12:36] LABS: LDL CHOLESTEROL 66 mg/dL (5-100)
[2023-08-04 12:37] LABS: ALANINE AMINOTRANSFERASE 27 IU/L (10-49); ASPARTATE AMINOTRANSFERASE 36 IU/L (<34); BILIRUBIN TOTAL 0.6 mg/dL (0.1-1.0); CHOLESTEROL 134 mg/dL (<200); HDL CHOLESTEROL 58 mg/dL (>55)
[2023-08-04 12:38] LABS: T4 FREE 1.14 ng/dL (0.89-1.76); THYROID STIMULATING HORMONE 1.27 uIU/mL (0.55-4.78)
[2023-08-04 13:27] LABS: ERYTHROCYTE SEDIMENTATION RATE 30 mm/hr (0-20)
[2023-08-04 13:36] LABS: CALCIUM 10.3 mg/dL (8.7-10.4)
[2023-08-04 13:44] LABS: CORTISOL 10.7 ucg/dL
[2023-08-04 13:50] LABS: FOLIC ACID (FOLATE) SERUM 16.77 ng/mL (>5.38)
[2023-08-04 13:51] LABS: VITAMIN B12 SERUM 322 pg/mL (211-911)
[2023-08-05 13:11] LABS: *CREATININE RANDOM URINE 70.1 mg/dL (Not Estab.); ANTI-NUCLEAR ANTIBODIES DIRECT Negative (Negative); MICROALBUMIN RANDOM URINE 242.6 ug/mL (Not Estab.)
== END | disposition home or self-care (01) ==
LOC: LAB 11:19
PROVIDERS: ATTEND Specialist
DX: I11.9 Hypertensive heart disease without heart failure (principal); E78.2 Mixed hyperlipidemia
CPT/HCPCS: 36415; 80053; 80061; 82043; 82306; 82533; 82570; 82607; 82746; 83036; 83735; 83880; 83921; 84439; 84443; 85025; 85651; 86038

== ENCOUNTER → 2023-08-18 | Outpatient (CLI) | payer BC | END | disposition home or self-care (01) | LOC: CARD 10:40 | PROVIDERS: ATTEND Specialist | DX: I08.1 Rheumatic disorders of both mitral and tricuspid valves (principal); I25.10 Atherosclerotic heart disease of native coronary artery without angina pectoris | CPT/HCPCS: 93306 ==

== ENCOUNTER → 2023-09-23 | Outpatient (CLI) | payer BC ==
[2023-09-23 09:41] LABS: BASOPHILS % 0.9 % (0.0-2.0); HEMATOCRIT. 31.7 % (42.0-52.0); HEMOGLOBIN. 10.3 g/dL (14.0-18.0); LYMPHOCYTES % 20.9 % (20.0-50.0); MEAN CORPUSCULAR HGB CONC 32.6 g/dL (31.0-37.0); MEAN CORPUSCULAR VOLUME 88.7 fL (80.0-94.0); MEAN PLATELET VOLUME 8.4 fl (7.4-10.4); NEUTROPHILS % 70.2 % (40.0-76.0); PLATELET 86 x1000/uL (130-400); RED BLOOD CELL COUNT 3.57 mill/uL (4.7-6.1); RED CELL DISTRIBUTION WIDTH 14.8 % (11.6-14.6); WHITE BLOOD COUNT 2.9 x1000/uL (4.5-11.0)
[2023-09-23 09:49] LABS: CHLORIDE 106 mEq/L (98-107); POTASSIUM 4.6 mEq/L (3.5-5.1); SODIUM 139 mEq/L (136-145)
[2023-09-23 09:50] LABS: CALCIUM 9.4 mg/dL (8.7-10.4); CARBON DIOXIDE 29 mEq/L (21-32)
[2023-09-23 09:55] LABS: CREATININE 1.1 mg/dL (0.6-1.3); GLUCOSE 123 mg/dL (70-105); TRIGLYCERIDE 64 mg/dL (0-150); UREA NITROGEN BLOOD 26 mg/dL (9-23)
[2023-09-23 09:56] LABS: ALANINE AMINOTRANSFERASE 31 IU/L (10-49); LDL CHOLESTEROL 49 mg/dL (5-100)
[2023-09-23 09:57] LABS: ALBUMIN 4.2 g/dL (3.2-4.8); ASPARTATE AMINOTRANSFERASE 33 IU/L (<34); BILIRUBIN TOTAL 0.4 mg/dL (0.1-1.0); CHOLESTEROL 97 mg/dL (<200); HDL CHOLESTEROL 43 mg/dL (>55); PROTEIN TOTAL 7.6 g/dL (6.0-8.3)
[2023-09-23 09:59] LABS: T4 FREE 1.13 ng/dL (0.89-1.76); THYROID STIMULATING HORMONE 1.65 uIU/mL (0.55-4.78)
[2023-09-24 10:08] LABS: *CREATININE RANDOM URINE 127.4 mg/dL (Not Estab.); MICROALBUMIN RANDOM URINE 41.8 ug/mL (Not Estab.)
== END | disposition home or self-care (01) ==
LOC: LAB 09:09
PROVIDERS: ATTEND Internal Medicine Endocrinology, Diabetes & Metabolism
DX: I10 Essential (primary) hypertension (principal); E11.9 Type 2 diabetes mellitus without complications; E55.9 Vitamin D deficiency, unspecified; E78.00 Pure hypercholesterolemia, unspecified; E03.9 Hypothyroidism, unspecified
CPT/HCPCS: 36415; 80053; 80061; 82043; 82306; 82570; 83036; 84439; 84443; 85025

== ENCOUNTER → 2023-09-23 | Outpatient (CLI) | payer BC ==
[2023-09-23 09:53] LABS: IRON 31 ug/dL (65-175)
[2023-09-23 09:56] LABS: TOTAL IRON BINDING CAPACITY 328 ug/dl (250-425)
== END | disposition home or self-care (01) ==
LOC: LAB 09:16
PROVIDERS: ATTEND Internal Medicine Hematology & Oncology
DX: D50.0 Iron deficiency anemia secondary to blood loss (chronic) (principal)
CPT/HCPCS: 36415; 82728; 83540; 83550

== ENCOUNTER → 2023-11-09 | Outpatient (CLI) | payer BC | END | disposition home or self-care (01) | LOC: RAD 11:16 | PROVIDERS: ATTEND Internal Medicine Hematology & Oncology | DX: M25.551 Pain in right hip (principal) | CPT/HCPCS: 73502 ==

== ENCOUNTER → 2024-04-10 | Outpatient (CLI) | payer BC ==
[~2024-04-10] MED LIST changes: -AMLO10TA4 PO; +ASCO500T20 PO; -ASPI-1406 PO; -ATOR20TA MT; +ATOR20TA65 PO; -AZIT500T8 MT; +CEPH500T MT; +COR3 MT; +DOCU-405 PO; -DOCU250C69 PO; +FURO20TA4 PO; -INSU300I SQ; +LANTUSUD SUBCUT; +LEVO125T8 PO; -LOSA25TA26 MT; +SACU1TAB MT; +TRAM50TA3 PO
[2024-04-10 10:51] LABS: CLARITY URINE CLEAR (CLEAR); COLOR URINE YELLOW (YELLOW); GLUCOSE URINE 2+ (NEGATIVE); KETONES URINE NEGATIVE (NEGATIVE); LEUKOCYTE ESTERASE URINE NEGATIVE (NEGATIVE); NITRITE URINE NEGATIVE (NEGATIVE); OCCULT BLOOD URINE NEGATIVE (NEGATIVE); PH URINE 5.5 (4.5-8.0); PROTEIN URINE 1+ (NEGATIVE); SPECIFIC GRAVITY URINE 1.014 (1.005-1.030); UROBILINOGEN URINE 0.2 E.U./dL (0.2-1.0)
[2024-04-10 11:21] LABS: CARBON DIOXIDE 29 mEq/L (21-32); CHLORIDE 104 mEq/L (98-107); POTASSIUM 4.9 mEq/L (3.5-5.1); SODIUM 138 mEq/L (136-145)
[2024-04-10 11:22] LABS: CALCIUM 9.5 mg/dL (8.7-10.4)
[2024-04-10 11:26] LABS: CREATININE 0.9 mg/dL (0.6-1.3); GLUCOSE 204 mg/dL (70-105); IRON 45 ug/dL (65-175)
[2024-04-10 11:27] LABS: TRIGLYCERIDE 58 mg/dL (0-150); UREA NITROGEN BLOOD 19 mg/dL (9-23)
[2024-04-10 11:28] LABS: ALANINE AMINOTRANSFERASE 30 IU/L (10-49); ALBUMIN 3.9 g/dL (3.2-4.8); LDL CHOLESTEROL 55 mg/dL (5-100); PROTEIN TOTAL 7.1 g/dL (6.0-8.3); TOTAL IRON BINDING CAPACITY 326 ug/dl (250-425)
[2024-04-10 11:29] LABS: ASPARTATE AMINOTRANSFERASE 31 IU/L (<34); BILIRUBIN TOTAL 0.7 mg/dL (0.1-1.0); CHOLESTEROL 137 mg/dL (<200); HDL CHOLESTEROL 60 mg/dL (>55); THYROID STIMULATING HORMONE 2.09 uIU/mL (0.55-4.78)
[2024-04-10 11:32] LABS: BASOPHILS % 0.5 % (0.0-2.0); EOSINOPHILS % 1.6 % (0.0-5.0); HEMATOCRIT. 31.3 % (42.0-52.0); HEMOGLOBIN. 9.6 g/dL (14.0-18.0); LYMPHOCYTES % 14.4 % (20.0-50.0); MEAN CORPUSCULAR HEMOGLOBIN 25.6 pg (28.0-32.0); MEAN CORPUSCULAR HGB CONC 30.7 g/dL (31.0-37.0); MEAN CORPUSCULAR VOLUME 83.3 fL (80.0-94.0); MEAN PLATELET VOLUME 8.7 fl (7.4-10.4); MONOCYTES % 7.6 % (2.0-8.0); NEUTROPHILS % 75.9 % (40.0-76.0); PLATELET 79 x1000/uL (130-400); RED BLOOD CELL COUNT 3.76 mill/uL (4.7-6.1); WHITE BLOOD COUNT 3.5 x1000/uL (4.5-11.0)
[2024-04-10 11:35] LABS: BACTERIA URINE RARE; RBC URINE NONE SEEN /hpf (0-2); SQUAMOUS EPITHELIAL CELL URINE NONE SEEN /lpf (RARE/1+); WBC URINE 0-2 /hpf (0-2); YEAST URINE NONE SEEN
[2024-04-10 11:39] LABS: ADD RBC MORPHOLOGY YES; DIFFERENTIAL COMMENT 1
[2024-04-10 12:07] LABS: T4 FREE 1.26 ng/dL (0.89-1.76)
[2024-04-10 12:10] LABS: FERRITIN 36 ng/mL (22-322)
[2024-04-10 12:51] LABS: ERYTHROCYTE SEDIMENTATION RATE 32 mm/hr (0-20)
[2024-04-10 14:25] LABS: VITAMIN B12 SERUM 323 pg/mL (211-911)
[2024-04-10 14:30] LABS: FOLIC ACID (FOLATE) SERUM > 20.00 ng/mL (>5.38)
[2024-04-11 10:36] LABS: ANISOCYTOSIS 2+; PLATELET ESTIMATE DECREASED
== END | disposition home or self-care (01) ==
LOC: LAB 10:11
PROVIDERS: ATTEND Family Medicine Adult Medicine
DX: E11.8 Type 2 diabetes mellitus with unspecified complications (principal); I10 Essential (primary) hypertension; R00.1 Bradycardia, unspecified; D50.9 Iron deficiency anemia, unspecified
CPT/HCPCS: 36415; 80053; 80061; 81003; 82306; 82607; 82728; 82746; 83036; 83540; 83550; 84439; 84443; 84481; 85025; 85651

== ENCOUNTER → 2024-04-12 | Outpatient (CLI) | payer BC | END | disposition home or self-care (01) | LOC: LAB 11:53 | PROVIDERS: ATTEND Internal Medicine Clinical Cardiac Electrophysiology | DX: I49.5 Sick sinus syndrome (principal); I51.7 Cardiomegaly; Z95.0 Presence of cardiac pacemaker | CPT/HCPCS: 71046 ==

== ENCOUNTER → 2024-05-18 | Outpatient (CLI) | payer BC ==
[2024-05-18 08:34] LABS: BASOPHILS % 0.3 % (0.0-2.0); CARBON DIOXIDE 27 mEq/L (21-32); CHLORIDE 104 mEq/L (98-107); EOSINOPHILS % 1.9 % (0.0-5.0); LYMPHOCYTES % 16.5 % (20.0-50.0); MEAN CORPUSCULAR HGB CONC 32.2 g/dL (31.0-37.0); MEAN CORPUSCULAR VOLUME 80.7 fL (80.0-94.0); MONOCYTES % 8.1 % (2.0-8.0); NEUTROPHILS % 73.2 % (40.0-76.0); PLATELET 83 x1000/uL (130-400); POTASSIUM 4.4 mEq/L (3.5-5.1); RED BLOOD CELL COUNT 3.47 mill/uL (4.7-6.1); RED CELL DISTRIBUTION WIDTH 21.2 % (11.6-14.6); SODIUM 141 mEq/L (136-145)
[2024-05-18 08:35] LABS: CALCIUM 9.4 mg/dL (8.7-10.4)
[2024-05-18 08:39] LABS: GLUCOSE 162 mg/dL (70-105)
[2024-05-18 08:40] LABS: TRIGLYCERIDE 104 mg/dL (0-150); UREA NITROGEN BLOOD 20 mg/dL (9-23)
[2024-05-18 08:41] LABS: ALANINE AMINOTRANSFERASE 26 IU/L (10-49); ALBUMIN 3.6 g/dL (3.2-4.8); ASPARTATE AMINOTRANSFERASE 28 IU/L (<34); LDL CHOLESTEROL 43 mg/dL (5-100)
[2024-05-18 08:42] LABS: BILIRUBIN TOTAL 0.4 mg/dL (0.1-1.0); CHOLESTEROL 105 mg/dL (<200); HDL CHOLESTEROL 46 mg/dL (>55); PROTEIN TOTAL 7.2 g/dL (6.0-8.3)
[2024-05-18 08:43] LABS: T4 FREE 1.45 ng/dL (0.89-1.76); THYROID STIMULATING HORMONE 1.52 uIU/mL (0.55-4.78)
[2024-05-19 09:10] LABS: *CREATININE RANDOM URINE 63.6 mg/dL (Not Estab.); MICROALBUMIN RANDOM URINE 92.3 ug/mL (Not Estab.)
[2024-05-19 09:10] LABS: PSA FREE 0.88 ng/mL; VITAMIN D 25-OH 30.6 ng/mL (30.0-100.0)
== END | disposition home or self-care (01) ==
LOC: LAB 05-17 15:43
PROVIDERS: ATTEND Internal Medicine Endocrinology, Diabetes & Metabolism
DX: I10 Essential (primary) hypertension (principal); E11.9 Type 2 diabetes mellitus without complications; E03.9 Hypothyroidism, unspecified; E78.5 Hyperlipidemia, unspecified; E55.9 Vitamin D deficiency, unspecified
CPT/HCPCS: 36415; 80053; 80061; 82043; 82306; 82570; 82728; 83036; 83695; 84153; 84154; 84439; 84443; 85025

== ENCOUNTER → 2024-06-14 | Outpatient (CLI) | payer BC | END | disposition home or self-care (01) | LOC: CT 08:17 | PROVIDERS: ATTEND Psychiatry & Neurology Neurology | DX: M47.817 Spondylosis without myelopathy or radiculopathy, lumbosacral region (principal); M48.061 Spinal stenosis, lumbar region without neurogenic claudication; M48.03 Spinal stenosis, cervicothoracic region; M46.02 Spinal enthesopathy, cervical region; M51.360 Other intervertebral disc degeneration, lumbar region with discogenic back pain only; M50.33 Other cervical disc degeneration, cervicothoracic region; M43.22 Fusion of spine, cervical region; M25.78 Osteophyte, vertebrae; M48.8X2 Other specified spondylopathies, cervical region; M85.88 Other specified disorders of bone density and structure, other site; R51.9 Headache, unspecified; Z98.890 Other specified postprocedural states; Z96.89 Presence of other specified functional implants | CPT/HCPCS: 72128; 72131 ==

== ENCOUNTER → 2024-07-10 | Outpatient (CLI) | payer BC ==
[~2024-07-10] MED LIST changes: -TAMS-11 MT; +TAMS-54 MT
[2024-07-10 11:17] LABS: BASOPHILS % 0.4 % (0.0-2.0); DIFFERENTIAL COMMENT 0; EOSINOPHILS % 1.4 % (0.0-5.0); HEMATOCRIT. 27.4 % (42.0-52.0); HEMOGLOBIN. 8.4 g/dL (14.0-18.0); LYMPHOCYTES % 13.8 % (20.0-50.0); MEAN CORPUSCULAR HEMOGLOBIN 24.7 pg (28.0-32.0); MEAN CORPUSCULAR HGB CONC 30.8 g/dL (31.0-37.0); MEAN CORPUSCULAR VOLUME 80.3 fL (80.0-94.0); MONOCYTES % 7.3 % (2.0-8.0); NEUTROPHILS % 77.1 % (40.0-76.0); PLATELET 67 x1000/uL (130-400); RED BLOOD CELL COUNT 3.42 mill/uL (4.7-6.1); RED CELL DISTRIBUTION WIDTH 17.8 % (11.6-14.6); WHITE BLOOD COUNT 2.8 x1000/uL (4.5-11.0)
[2024-07-10 11:32] LABS: CHLORIDE 108 mEq/L (98-107); POTASSIUM 4.5 mEq/L (3.5-5.1); SODIUM 141 mEq/L (136-145)
[2024-07-10 11:33] LABS: CALCIUM 9.7 mg/dL (8.7-10.4); CARBON DIOXIDE 29 mEq/L (21-32)
[2024-07-10 11:37] LABS: IRON 19 ug/dL (65-175)
[2024-07-10 11:38] LABS: CREATININE 0.9 mg/dL (0.6-1.3); UREA NITROGEN BLOOD 21 mg/dL (9-23)
[2024-07-10 11:39] LABS: ALANINE AMINOTRANSFERASE 27 IU/L (10-49)
[2024-07-10 11:40] LABS: ALBUMIN 3.8 g/dL (3.2-4.8); ASPARTATE AMINOTRANSFERASE 29 IU/L (<34); BILIRUBIN TOTAL 0.5 mg/dL (0.1-1.0); PROTEIN TOTAL 7.5 g/dL (6.0-8.3); TOTAL IRON BINDING CAPACITY 366 ug/dl (250-425)
[2024-07-10 11:57] LABS: GLUCOSE 313 mg/dL (70-105)
== END | disposition home or self-care (01) ==
LOC: LAB 10:52
PROVIDERS: ATTEND Internal Medicine Hematology & Oncology
DX: D50.0 Iron deficiency anemia secondary to blood loss (chronic) (principal)
CPT/HCPCS: 36415; 80053; 82728; 83540; 83550; 83735; 85025

== ENCOUNTER → 2024-07-27 | Outpatient (CLI) | payer BC | END | disposition home or self-care (01) | LOC: CARD 09:40 | PROVIDERS: ATTEND Specialist | DX: I08.1 Rheumatic disorders of both mitral and tricuspid valves (principal); I11.9 Hypertensive heart disease without heart failure; R06.02 Shortness of breath | CPT/HCPCS: 93306 ==

== ENCOUNTER → 2024-10-11 | Outpatient (CLI) | payer BC | END | disposition home or self-care (01) | LOC: LAB 09:00 | PROVIDERS: ATTEND Specialist | DX: I11.0 Hypertensive heart disease with heart failure (principal); I50.9 Heart failure, unspecified; E11.42 Type 2 diabetes mellitus with diabetic polyneuropathy; E78.2 Mixed hyperlipidemia | CPT/HCPCS: 36415; 83036; 83880 ==

== ENCOUNTER → 2024-10-11 | Outpatient (CLI) | payer BC ==
[2024-10-11 11:29] LABS: BASOPHILS % 0.4 % (0.0-2.0); EOSINOPHILS % 1.5 % (0.0-5.0); HEMATOCRIT. 30.3 % (42.0-52.0); HEMOGLOBIN. 9.7 g/dL (14.0-18.0); LYMPHOCYTES % 18.2 % (20.0-50.0); MEAN PLATELET VOLUME 8.8 fl (7.4-10.4); MONOCYTES % 7.5 % (2.0-8.0); NEUTROPHILS % 72.4 % (40.0-76.0); PLATELET 63 x1000/uL (130-400); RED BLOOD CELL COUNT 3.29 mill/uL (4.7-6.1); RED CELL DISTRIBUTION WIDTH 20.4 % (11.6-14.6)
[2024-10-11 11:30] LABS: ASPARTATE AMINOTRANSFERASE 30 IU/L (<34); BILIRUBIN TOTAL 0.4 mg/dL (0.1-1.0); CREATININE 1.0 mg/dL (0.6-1.3); LDL CHOLESTEROL 55 mg/dL (5-100); PROTEIN TOTAL 7.1 g/dL (6.0-8.3); T4 FREE 1.26 ng/dL (0.89-1.76); TRIGLYCERIDE 89 mg/dL (0-150); UREA NITROGEN BLOOD 23 mg/dL (9-23)
[2024-10-12 09:07] LABS: *CREATININE RANDOM URINE 122.0 mg/dL (Not Estab.); MICROALBUMIN RANDOM URINE 298.2 ug/mL (Not Estab.); MICROALBUMIN/CREATININE RATIO 244.0 mg/g creat (0-29)
[2024-10-12 09:07] LABS: FOLICLE STIMULATING HORMONE 12.6 mIU/mL (1.5-12.4); LUTEINIZING HORMONE 9.6 mIU/mL (1.7-8.6); PROLACTIN 0.4 ng/mL (3.6-25.2); VITAMIN D 25-OH 28.5 ng/mL (30.0-100.0)
== END | disposition home or self-care (01) ==
LOC: LAB 09:06
PROVIDERS: ATTEND Internal Medicine Hematology & Oncology
DX: I11.0 Hypertensive heart disease with heart failure (principal); I50.9 Heart failure, unspecified; E11.9 Type 2 diabetes mellitus without complications; E03.9 Hypothyroidism, unspecified; E55.9 Vitamin D deficiency, unspecified
CPT/HCPCS: 36415; 80053; 80061; 82043; 82306; 82570; 83001; 83002; 83036; 84146; 84402; 84403; 84439; 84443; 85025

== ENCOUNTER → 2024-10-15 | Outpatient (CLI) | payer BC ==
[2024-10-15 10:42] LABS: BASOPHILS % 0.4 % (0.0-2.0); EOSINOPHILS % 1.5 % (0.0-5.0); HEMATOCRIT. 29.7 % (42.0-52.0); HEMOGLOBIN. 9.7 g/dL (14.0-18.0); LYMPHOCYTES % 17.3 % (20.0-50.0); MEAN PLATELET VOLUME 8.5 fl (7.4-10.4); MONOCYTES % 7.9 % (2.0-8.0); NEUTROPHILS % 72.9 % (40.0-76.0); PLATELET 57 x1000/uL (130-400); RED BLOOD CELL COUNT 3.25 mill/uL (4.7-6.1); RED CELL DISTRIBUTION WIDTH 19.8 % (11.6-14.6)
[2024-10-15 11:22] LABS: CREATININE 0.9 mg/dL (0.6-1.3); UREA NITROGEN BLOOD 23 mg/dL (9-23)
[2024-10-15 11:24] LABS: ASPARTATE AMINOTRANSFERASE 30 IU/L (<34); BILIRUBIN TOTAL 0.5 mg/dL (0.1-1.0); PROTEIN TOTAL 7.2 g/dL (6.0-8.3)
== END | disposition home or self-care (01) ==
LOC: LAB 10:02
PROVIDERS: ATTEND Internal Medicine Hematology & Oncology
DX: D50.0 Iron deficiency anemia secondary to blood loss (chronic) (principal)
CPT/HCPCS: 36415; 80053; 82728; 83540; 83550; 85025

== ENCOUNTER → 2025-01-14 | Outpatient (CLI) | payer BC ==
[2025-01-14 10:17] LABS: BASOPHILS % 0.4 % (0.0-2.0); EOSINOPHILS % 1.0 % (0.0-5.0); HEMATOCRIT. 37.3 % (42.0-52.0); HEMOGLOBIN. 11.9 g/dL (14.0-18.0); LYMPHOCYTES % 17.8 % (20.0-50.0); MEAN PLATELET VOLUME 8.6 fl (7.4-10.4); MONOCYTES % 5.8 % (2.0-8.0); NEUTROPHILS % 75.0 % (40.0-76.0); PLATELET 76 x1000/uL (130-400); RED BLOOD CELL COUNT 3.82 mill/uL (4.7-6.1); RED CELL DISTRIBUTION WIDTH 23.9 % (11.6-14.6)
[2025-01-14 10:35] LABS: ADD RBC MORPHOLOGY YES
[2025-01-14 10:41] LABS: CREATININE 0.9 mg/dL (0.6-1.3); UREA NITROGEN BLOOD 21 mg/dL (9-23)
[2025-01-14 10:43] LABS: ASPARTATE AMINOTRANSFERASE 36 IU/L (<34); BILIRUBIN TOTAL 0.6 mg/dL (0.1-1.0); PROTEIN TOTAL 8.5 g/dL (6.0-8.3)
[2025-01-14 20:26] LABS: PLATELET ESTIMATE DECREASED
== END | disposition home or self-care (01) ==
LOC: LAB 09:31
PROVIDERS: ATTEND Internal Medicine Hematology & Oncology
DX: D50.0 Iron deficiency anemia secondary to blood loss (chronic) (principal)
CPT/HCPCS: 36415; 80053; 82728; 83540; 83550; 85025

== ENCOUNTER → 2025-01-14 | Outpatient (CLI) | payer BC ==
[2025-01-14 10:40] LABS: TRIGLYCERIDE 97.0 mg/dL (0-150)
[2025-01-14 10:41] LABS: LDL CHOLESTEROL 62.0 mg/dL (5-100)
[2025-01-14 10:43] LABS: T4 FREE 1.49 ng/dL (0.89-1.76)
[2025-01-14 19:13] LABS: FOLIC ACID (FOLATE) SERUM > 20.00 ng/mL (>5.38); VITAMIN B12 SERUM 466 pg/mL (211-911)
[2025-01-15 06:18] LABS: FOLICLE STIMULATING HORMONE 14.1 mIU/mL (1.5-12.4); LUTEINIZING HORMONE 14.0 mIU/mL (1.7-8.6); PROLACTIN 0.4 ng/mL (3.6-25.2); VITAMIN D 25-OH 28.7 ng/mL (30.0-100.0)
[2025-01-15 13:11] LABS: *CREATININE RANDOM URINE 72.3 mg/dL (Not Estab.); MICROALBUMIN RANDOM URINE 195.9 ug/mL (Not Estab.); MICROALBUMIN/CREATININE RATIO 271.0 mg/g creat (0-29)
== END | disposition home or self-care (01) ==
LOC: LAB 09:25
PROVIDERS: ATTEND Internal Medicine Endocrinology, Diabetes & Metabolism
DX: E11.9 Type 2 diabetes mellitus without complications (principal); E78.5 Hyperlipidemia, unspecified; E55.9 Vitamin D deficiency, unspecified; D64.9 Anemia, unspecified
CPT/HCPCS: 36415; 80061; 82043; 82306; 82570; 82607; 82746; 83001; 83002; 83036; 83921; 84146; 84439; 84443

== ENCOUNTER → 2025-01-24 | Outpatient (CLI) | payer BC ==
[~2025-01-24] MED LIST changes: +IOHEXOL-300 100 ML BOTTLE ONE
== END | disposition home or self-care (01) ==
LOC: CT 09:55
PROVIDERS: ATTEND Internal Medicine Endocrinology, Diabetes & Metabolism
DX: K42.9 Umbilical hernia without obstruction or gangrene (principal); K76.89 Other specified diseases of liver; K82.8 Other specified diseases of gallbladder; R63.4 Abnormal weight loss; Z96.642 Presence of left artificial hip joint
CPT/HCPCS: 74178; Q9967; Z7610

== ENCOUNTER → 2025-02-04 | Outpatient (CLI) | payer BC ==
[~2025-02-04] MED LIST changes: -IOHEXOL-300 100 ML BOTTLE ONE
[2025-02-04 10:39] LABS: BASOPHILS % 0.3 % (0.0-2.0); EOSINOPHILS % 1.2 % (0.0-5.0); HEMATOCRIT. 33.5 % (42.0-52.0); HEMOGLOBIN. 10.8 g/dL (14.0-18.0); LYMPHOCYTES % 16.5 % (20.0-50.0); MEAN PLATELET VOLUME 8.8 fl (7.4-10.4); MONOCYTES % 7.4 % (2.0-8.0); NEUTROPHILS % 74.6 % (40.0-76.0); PLATELET 60 x1000/uL (130-400); RED BLOOD CELL COUNT 3.35 mill/uL (4.7-6.1); RED CELL DISTRIBUTION WIDTH 20.2 % (11.6-14.6)
[2025-02-04 10:58] LABS: CREATININE 1.0 mg/dL (0.6-1.3)
[2025-02-04 10:59] LABS: UREA NITROGEN BLOOD 16 mg/dL (9-23)
[2025-02-04 11:00] LABS: ASPARTATE AMINOTRANSFERASE 30 IU/L (<34)
[2025-02-04 11:01] LABS: BILIRUBIN TOTAL 0.6 mg/dL (0.1-1.0); PROTEIN TOTAL 6.7 g/dL (6.0-8.3)
== END | disposition home or self-care (01) ==
LOC: LAB 09:58
PROVIDERS: ATTEND Internal Medicine Hematology & Oncology
DX: D50.0 Iron deficiency anemia secondary to blood loss (chronic) (principal)
CPT/HCPCS: 36415; 80053; 82728; 83540; 83550; 85025

== ENCOUNTER → 2025-02-05 | Outpatient (CLI) | payer BC | END | disposition home or self-care (01) | LOC: US 08:03 | PROVIDERS: ATTEND Internal Medicine Gastroenterology | DX: N28.1 Cyst of kidney, acquired (principal); K82.8 Other specified diseases of gallbladder; R16.2 Hepatomegaly with splenomegaly, not elsewhere classified; K81.0 Acute cholecystitis | CPT/HCPCS: 76700 ==

== ENCOUNTER → 2025-02-07 | Outpatient (CLI) | payer BC ==
[2025-02-07 12:50] LABS: INR 1.1
== END | disposition home or self-care (01) ==
LOC: LAB 11:54
PROVIDERS: ATTEND Internal Medicine Gastroenterology
DX: D64.9 Anemia, unspecified (principal); K74.60 Unspecified cirrhosis of liver; R94.5 Abnormal results of liver function studies
CPT/HCPCS: 36415; 86301

== ENCOUNTER → 2025-03-20 | Outpatient (CLI) | payer BC | END | disposition home or self-care (01) | LOC: CARD 07:55 | PROVIDERS: ATTEND Specialist | DX: I51.7 Cardiomegaly (principal); R07.9 Chest pain, unspecified | CPT/HCPCS: 93306 ==